=== PATIENT | male | born 1960 | race Caucasian/White ===

== ENCOUNTER 2022-11-01 20:53 | Emergency (ER) | payer OTHER, SELFPAY ==
[2022-11-01 20:55] VITALS: BP 139/87; PULSE 91; RESP 18; TEMP 36.6; O2SAT 95; BMI 30.3
--- NOTE | 2022-11-01 20:56 | ECG_ITS ---
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
--- NOTE | 2022-11-01 20:59 | ED_ITS ---
Documented by User: YOUNG Plascencia 11/01/22 21:57 HPI - Psych General Chief Complaint: Psychiatric Symptoms Stated Complaint: Suicidal Time Seen by Provider: 11/01/22 20:56 History of Present Illness HPI Narrative: patient is a 62-year-old male who presents the emergency department by ambulance for suicidal ideation. Patient states for the last several weeks he has had an increase in suicidal thoughts. He denies homicidal ideation. He called the [facility] and EMS was dispatched to bring him to the hospital. He denies any drug or alcohol ingestion. He does not have a specific suicidal plan. He denies any recent illness or focal medical complaints. He takes medication for high blood pressure as well as Related Data Home Medications Medication Instructions Recorded Confirmed hydroxyzine HCl 25 mg tablet 25 mg PO Q8H PRN itching 11/01/22 11/01/22 Allergies Allergy/AdvReac Type Severity Reaction Status Date / Time No Known Drug Allergies Allergy Verified 11/01/22 21:00 [facility] Social History Smoking status: Former smoker Exam Narrative Exam Narrative: Gen.: Awake, alert, in no distress Head: Normocephalic, atraumatic ENT: Moist mucous membranes Respiratory: No respiratory distress, lungs clear bilaterally Cardio: Regular rate and rhythm Gastrointestinal: Abdomen is soft, nondistended and nontender to palpation Extremities: Moves extremities equally, no injuries noted Psych: calm, cooperative Neuro: No focal neuro deficit Skin: Warm, dry, intact Constitutional Vital Signs, click to edit/add: Last Vital Signs Temp 97.8 F 11/01/22 20:55 Pulse 91 H 11/01/22 20:55 Resp 18 11/01/22 20:55 BP 139/87 11/01/22 20:55 Pulse Ox 95 11/01/22 20:55 O2 Del Method Room Air 11/01/22 20:55 Course Vital Signs Vital signs: Vital Signs Temperature 97.8 F 11/01/22 20:55 Pulse Rate 91 H 11/01/22 20:55 Respiratory Rate 18 11/01/22 20:55 Blood Pressure 139/87 11/01/22 20:55 Pulse Oximetry 95 11/01/22 20:55 Oxygen Delivery Method Room Air 11/01/22 20:55 Temperature 97.8 F 11/01/22 20:55 Pulse Rate 91 H 11/01/22 20:55 Respiratory Rate 18 11/01/22 20:55 Blood Pressure 139/87 11/01/22 20:55 Pulse Oximetry 95 11/01/22 20:55 Oxygen Delivery Method Room Air 11/01/22 20:55 MDM - Psych MDM Narrative Medical decision making narrative: patient is calm and cooperative in the Emergency Room, EKG, lab studies and urine specimen are obtained, patient is not intoxicated. Initiated a call to [facility], they spoke with the patient and his over the phone and we are awaiting additional evaluation by counseling services. Patient is stable at this time. Case is turned over to attending physician @2200 for disposition. Medical Records Attestation: I reviewed the patient's medical records. Lab Data Attestation: I reviewed the patient's lab results. Labs: Lab Results 11/01/22 11/01/22 11/01/22 Range/Units 21:10 21:15 21:25 WBC 5.8 (4.0-11.0) 10^3/uL RBC 4.46 L (4.70-6.10) 10^6/uL Hgb 14.6 (14.0-18.0) g/dL Hct 43.0 (42.0-54.0) % MCV 96.4 H (80.0-94.0) fL MCH 32.7 (25.9-34.0) pg MCHC 34.0 (29.9-35.2) g/dL RDW 13.2 (11.0-15.0) % Plt Count 114 L (150-450) 10^3/uL MPV 10.3 (9.5-13.5) fL Neut % (Auto) 50.3 (43.0-75.0) % Lymph % (Auto) 35.5 (20.5-60.0) % Gates % (Auto) 12.6 H (1.7-12.0) % Eos % (Auto) 1.0 (0.9-7.0) % Baso % (Auto) 0.3 (0.2-2.0) % Neut # (Auto) 2.9 (1.4-6.5) 10^3/uL Lymph # (Auto) 2.1 (1.2-3.8) 10^3/uL Gates # (Auto) 0.7 (0.3-0.8) 10^3/uL Eos # (Auto) 0.1 (0.0-0.7) 10^3/uL Baso # (Auto) 0.0 (0.0-0.1) 10^3/uL Abs Immat Gran (auto) 0.02 (0.00-0.03) 10^3/uL Imm/Tot Granulo (auto) 0.3 (0.0-0.5) % Sodium 133 L (136-145) mmol/L Potassium 3.5 (3.5-5.1) mmol/L Chloride 95 L (98-107) mmol/L Carbon Dioxide 28.7 (21.0-32.0) mmol/L Anion Gap 12.8 BUN 25.0 H (7.0-18.0) mg/dL Creatinine 1.29 (0.70-1.30) mg/dL Est GFR ( Amer) >60 (>=60) Est GFR (Non-Af Amer) 56 L (>=60) BUN/Creatinine Ratio 19.4 Glucose 95 (74-106) mg/dL Calcium 8.7 (8.5-10.1) mg/dL Total Bilirubin 0.5 (0.2-1.0) mg/dL AST 13 L (15-37) U/L ALT 21 (16-63) U/L Alkaline Phosphatase 75 (46-116) U/L Total Protein 6.6 (6.4-8.2) g/dL Albumin 3.5 (3.4-5.0) g/dL Globulin 3.1 g/dL Albumin/Globulin Ratio 1.1 Urine Color Lt. yellow (YELLOW) Urine Clarity Clear (CLEAR) Urine pH 8.5 (5.0-9.0) Ur Specific [place] 1.015 (1.005-1.025) Urine Protein Negative (NEG/TRACE) mg/dL Urine Glucose (UA) Negative (NEGATIVE) mg/dL Urine Ketones Negative (NEGATIVE) mg/dL Urine Occult Blood Negative (NEGATIVE) Urine Nitrite Negative (NEGATIVE) Urine Bilirubin Negative (NEGATIVE) Urine Urobilinogen 0.2 (0.2-1.0) EU/dL Ur Leukocyte Esterase Negative (NEGATIVE) Salicylates <2.8 (<=19.9) mg/dL Urine Opiates Screen Negative (NEGATIVE) Ur Buprenorphine Scrn Negative (NEGATIVE) Ur Oxycodone Screen Negative (NEGATIVE) Urine Methadone Screen Negative (NEGATIVE) Ur Propoxyphene Screen Negative (NEGATIVE) Acetaminophen <2.0 L (10.0-30.0) ug/mL Ur Barbiturates Screen Negative (NEGATIVE) U Tricyclic Antidepress Negative (NEGATIVE) Ur Phencyclidine Scrn Negative (NEGATIVE) Ur Amphetamines Screen Negative (NEGATIVE) U Methamphetamines Scrn Negative (NEGATIVE) U Benzodiazepines Scrn Negative (NEGATIVE) Urine Cocaine Screen Negative (NEGATIVE) U Cannabinoids Screen Negative (NEGATIVE) Ethanol Quant <3 mg/dL SARS-CoV-2 (PCR) Positive A (NEGATIVE) ECG Data Attestation: I personally reviewed and interpreted this ECG as follows: (Normal sinus rhythm at a rate of 84, no acute ST elevation, no ectopy. EKG reviewed by attending physician) ECG interpretation date: 11/01/22 ECG interpretation time: 21:09 Discharge Plan Discharge Chief Complaint: Psychiatric Symptoms Clinical Impression: Depression, COVID-19 Patient Disposition: Home, Self-Care Time of Disposition Decision: 22:49 Condition: Good Mode of Transportation: Private Vehicle Prescriptions / Home Meds: No Action hydroxyzine HCl 25 mg tablet 25 mg PO Q8H PRN (Reason: itching) Instructions: Depression (ED) Stand Alone Forms: Portal Instructions Referrals: BRIANA NG [Primary Care Provider] - 1 week Discharge Date/Time: 11/01/22 23:40 Documented by User: Krystal Puri MD 11/02/22 01:13 HPI - Psych General Chief Complaint: Psychiatric Symptoms Stated Complaint: Suicidal Time Seen by Provider: 11/01/22 20:56 Related Data Home Medications Medication Instructions Recorded Confirmed hydroxyzine HCl 25 mg tablet 25 mg PO Q8H PRN itching 11/01/22 11/01/22 Allergies Allergy/AdvReac Type Severity Reaction Status Date / Time No Known Drug Allergies Allergy Verified 11/01/22 21:00 PFSH PFSH Social History Smoking status: Former smoker Exam Constitutional Vital Signs, click to edit/add: Last Vital Signs Temp 97.8 F 11/01/22 20:55 Pulse 91 H 11/01/22 20:55 Resp 18 11/01/22 20:55 BP 139/87 11/01/22 20:55 Pulse Ox 95 11/01/22 20:55 O2 Del Method Room Air 11/01/22 20:55 Course Vital Signs Vital signs: Vital Signs Temperature 97.8 F 11/01/22 20:55 Pulse Rate 91 H 11/01/22 20:55 Respiratory Rate 18 11/01/22 20:55 Blood Pressure 139/87 11/01/22 20:55 Pulse Oximetry 95 11/01/22 20:55 Oxygen Delivery Method Room Air 11/01/22 20:55 Temperature 97.8 F 11/01/22 20:55 Pulse Rate 91 H 11/01/22 20:55 Respiratory Rate 18 11/01/22 20:55 Blood Pressure 139/87 11/01/22 20:55 Pulse Oximetry 95 11/01/22 20:55 Oxygen Delivery Method Room Air 11/01/22 20:55 MDM - Psych MDM Narrative Medical decision making narrative: patient is calm and cooperative in the Emergency Room, EKG, lab studies and urine specimen are obtained, patient is not intoxicated. Initiated a call to [facility] counseling, they spoke with the patient and his over the phone and we are awaiting additional evaluation by counseling services. Patient is stable at this time. Case is turned over to attending physician @2200 for disposition. Attending physician attestation I have seen and evaluated this patient. I have reviewed the mid-level provider?s documentation medical decision making and treatment plan. I agree with the mid- level provider?s assessment, and plan. Patient was evaluated by [facility] mental health. At this time her last mental health has discussed the case with the patient and spouse. They have opted for a safety plan. Patient is not actively suicidal. He will have police remove all of the firearms from the house. The= of the items that he has to can consult our locked up. has done this last year when the patient was suicidal. Patient feels safe going home with a safety plan. States more swollen. It is when he is alone and they have arranged to have someone with him [id number]. I answered all questions. Discussed discharge instructions including standard anticipatory guidance and what should prompt a return to the emergency department, including if they get worse are not getting better or develops any new or concerning symptoms. I've given them specific time frame in which to follow-up, and who to follow-up with. The patient demonstrates understanding. Patient is nontoxic and stable for discharge with outpatient follow-up. This note was created with the assistance of a speech recognition program. Although the intention is to generate documents that actually reflects the content of the visit, no guarantees can be provided that every mistake has been identified and corrected by editing. Differential Diagnosis Differential diagnosis: Likely suicidal ideation, bipolar disorder, depression and acute anxiety Lab Data Labs: Lab Results 11/01/22 11/01/22 11/01/22 Range/Units 21:10 21:15 21:25 WBC 5.8 (4.0-11.0) 10^3/uL RBC 4.46 L (4.70-6.10) 10^6/uL Hgb 14.6 (14.0-18.0) g/dL Hct 43.0 (42.0-54.0) % MCV 96.4 H (80.0-94.0) fL MCH 32.7 (25.9-34.0) pg MCHC 34.0 (29.9-35.2) g/dL RDW 13.2 (11.0-15.0) % Plt Count 114 L (150-450) 10^3/uL MPV 10.3 (9.5-13.5) fL Neut % (Auto) 50.3 (43.0-75.0) % Lymph % (Auto) 35.5 (20.5-60.0) % Gates % (Auto) 12.6 H (1.7-12.0) % Eos % (Auto) 1.0 (0.9-7.0) % Baso % (Auto) 0.3 (0.2-2.0) % Neut # (Auto) 2.9 (1.4-6.5) 10^3/uL Lymph # (Auto) 2.1 (1.2-3.8) 10^3/uL Gates # (Auto) 0.7 (0.3-0.8) 10^3/uL Eos # (Auto) 0.1 (0.0-0.7) 10^3/uL Baso # (Auto) 0.0 (0.0-0.1) 10^3/uL Abs Immat Gran (auto) 0.02 (0.00-0.03) 10^3/uL Imm/Tot Granulo (auto) 0.3 (0.0-0.5) % Sodium 133 L (136-145) mmol/L Potassium 3.5 (3.5-5.1) mmol/L Chloride 95 L (98-107) mmol/L Carbon Dioxide 28.7 (21.0-32.0) mmol/L Anion Gap 12.8 BUN 25.0 H (7.0-18.0) mg/dL Creatinine 1.29 (0.70-1.30) mg/dL Est GFR ( Amer) >60 (>=60) Est GFR (Non-Af Amer) 56 L (>=60) BUN/Creatinine Ratio 19.4 Glucose 95 (74-106) mg/dL Calcium 8.7 (8.5-10.1) mg/dL Total Bilirubin 0.5 (0.2-1.0) mg/dL AST 13 L (15-37) U/L ALT 21 (16-63) U/L Alkaline Phosphatase 75 (46-116) U/L Total Protein 6.6 (6.4-8.2) g/dL Albumin 3.5 (3.4-5.0) g/dL Globulin 3.1 g/dL Albumin/Globulin Ratio 1.1 Urine Color Lt. yellow (YELLOW) Urine Clarity Clear (CLEAR) Urine pH 8.5 (5.0-9.0) Ur Specific [place] 1.015 (1.005-1.025) Urine Protein Negative (NEG/TRACE) mg/dL Urine Glucose (UA) Negative (NEGATIVE) mg/dL Urine Ketones Negative (NEGATIVE) mg/dL Urine Occult Blood Negative (NEGATIVE) Urine Nitrite Negative (NEGATIVE) Urine Bilirubin Negative (NEGATIVE) Urine Urobilinogen 0.2 (0.2-1.0) EU/dL Ur Leukocyte Esterase Negative (NEGATIVE) Salicylates <2.8 (<=19.9) mg/dL Urine Opiates Screen Negative (NEGATIVE) Ur Buprenorphine Scrn Negative (NEGATIVE) Ur Oxycodone Screen Negative (NEGATIVE) Urine Methadone Screen Negative (NEGATIVE) Ur Propoxyphene Screen Negative (NEGATIVE) Acetaminophen <2.0 L (10.0-30.0) ug/mL Ur Barbiturates Screen Negative (NEGATIVE) U Tricyclic Antidepress Negative (NEGATIVE) Ur Phencyclidine Scrn Negative (NEGATIVE) Ur Amphetamines Screen Negative (NEGATIVE) U Methamphetamines Scrn Negative (NEGATIVE) U Benzodiazepines Scrn Negative (NEGATIVE) Urine Cocaine Screen Negative (NEGATIVE) U Cannabinoids Screen Negative (NEGATIVE) Ethanol Quant <3 mg/dL SARS-CoV-2 (PCR) Positive A (NEGATIVE) Discharge Plan Discharge Chief Complaint: Psychiatric Symptoms Clinical Impression: Depression, COVID-19 Patient Disposition: Home, Self-Care Time of Disposition Decision: 22:49 Condition: Good Mode of Transportation: Private Vehicle Prescriptions / Home Meds: No Action hydroxyzine HCl 25 mg tablet 25 mg PO Q8H PRN (Reason: itching) Instructions: Depression (ED) Stand Alone Forms: Portal Instructions Referrals: BRIANA NG [Primary Care Provider] - 1 week Discharge Date/Time: 11/01/22 23:40
[2022-11-01 21:18] LABS: Bilirubin Urine NEGATIVE (NEGATIVE); Blood Urine NEGATIVE (NEGATIVE); Clarity Urine CLEAR (CLEAR); Color Urine LT. YELLOW (YELLOW); Glucose Urine UA NEGATIVE (NEGATIVE); Ketones Urine NEGATIVE (NEGATIVE); Leukocyte Esterase Urine NEGATIVE (NEGATIVE); Nitrite Urine NEGATIVE (NEGATIVE); Protein Urine NEGATIVE (NEG/TRACE); Specific Gravity Urine 1.015 (1.005-1.025); Urobilinogen Urine 0.2 EU/dL (0.2-1.0); pH Urine 8.5 (5.0-9.0)
[2022-11-01 21:20] LABS: Urine Microscopic Indicated NO
[2022-11-01 21:21] LABS: Basophils Percent Auto 0.3 % (0.2-2.0); Eosinophils Absolute Auto 0.1 10^3/uL (0.0-0.7); Hemoglobin 14.6 g/dL (14.0-18.0); Immature Granulocytes Abs Auto 0.02 10^3/uL (0.00-0.03); Immature Granulocytes Pct Auto 0.3 % (0.0-0.5); Lymphocytes Absolute Auto 2.1 10^3/uL (1.2-3.8); Lymphocytes Percent Auto 35.5 % (20.5-60.0); Mean Corpuscular Hemoglobin 32.7 pg (25.9-34.0); Mean Corpuscular Volume 96.4 fL (80.0-94.0); Mean Platelet Volume 10.3 fL (9.5-13.5); Monocytes Absolute Auto 0.7 10^3/uL (0.3-0.8); Monocytes Percent Auto 12.6 % (1.7-12.0); Neutrophils Absolute Auto 2.9 10^3/uL (1.4-6.5); Neutrophils Percent Auto 50.3 % (43.0-75.0); Platelet Count 114 10^3/uL (150-450); Red Blood Count 4.46 10^6/uL (4.70-6.10); Red Cell Distribution Width 13.2 % (11.0-15.0); White Blood Count 5.8 10^3/uL (4.0-11.0)
[2022-11-01 21:28] LABS: Amphetamine Screen Urine NEGATIVE (NEGATIVE); Barbiturates Screen Urine NEGATIVE (NEGATIVE); Benzodiazepines Screen Urine NEGATIVE (NEGATIVE); Cannabinoid Screen Urine NEGATIVE (NEGATIVE); Cocaine Screen Urine NEGATIVE (NEGATIVE); Methadone Screen Urine NEGATIVE (NEGATIVE); Methamphetamines Screen Urine NEGATIVE (NEGATIVE); Opiate Screen Urine NEGATIVE (NEGATIVE); Oxycodone Screen Urine NEGATIVE (NEGATIVE); Phencyclidine Screen Urine NEGATIVE (NEGATIVE); Tricyclic Antidepressant Urine NEGATIVE (NEGATIVE)
[2022-11-01 21:29] LABS: Buprenorphine Screen Urine NEGATIVE (NEGATIVE)
[2022-11-01 21:33] LABS: Salicylate <2.8 mg/dL (<=19.9)
[2022-11-01 21:34] LABS: Acetaminophen <2.0 ug/mL (10.0-30.0)
[2022-11-01 21:36] LABS: Alanine Aminotransferase 21 U/L (16-63); Albumin Globulin Ratio 1.1; Albumin Level 3.5 g/dL (3.4-5.0); Alkaline Phosphatase 75 U/L (46-116); Anion Gap 12.8; Aspartate Amino Transferase 13 U/L (15-37); BUN Creatinine Ratio 19.4; Bilirubin Total 0.5 mg/dL (0.2-1.0); Calcium 8.7 mg/dL (8.5-10.1); Carbon Dioxide 28.7 mmol/L (21.0-32.0); Chloride 95 mmol/L (98-107); Estimated GFR (African America >60 (>=60); Estimated GFR (Non-African Ame 56 (>=60); Globulin 3.1 g/dL; Glucose 95 mg/dL (74-106); Potassium 3.5 mmol/L (3.5-5.1); Sodium 133 mmol/L (136-145); Total Protein 6.6 g/dL (6.4-8.2)
[2022-11-01 21:37] LABS: Ethanol <3 mg/dL
[2022-11-01 22:02] LABS: SARS-CoV-2 Ag POSITIVE (NEGATIVE)
== END 2022-11-01 23:40 | disposition home or self-care (01) ==
PROVIDERS: Physician Assistant; Emergency Provider Emergency Medicine; PCP Internal Medicine
DX: F32.A Depression, unspecified (principal); U07.1 COVID-19; I10 Essential (primary) hypertension; Z79.899 Other long term (current) drug therapy; Z87.891 Personal history of nicotine dependence
CPT/HCPCS: 36415; 80053; 80179; 80307; 80320; 80329; 81003; 85025; 87811; 93005; 99284

== ENCOUNTER 2024-06-07 15:03 | Emergency (ER) | payer MEDICARE, SELFPAY ==
[2024-06-07 15:06] VITALS: BP 136/83; PULSE 100; TEMP 36.8; O2SAT 97; BMI 29.9
--- NOTE | 2024-06-07 15:19 | ED.UPPEXIN1 ---
HPI HPI - Extremity Injury (Upper) General Chief Complaint: Extremity Injury, Upper Stated Complaint: Fall Extremity Injury, Upper Time Seen by Provider: 06/07/24 15:04 Source: patient Mode of arrival: walk-in Limitations: no limitations History of Present Illness HPI narrative: Patient is a 64-year-old male who presents to the emergency department for an injury to his left fifth finger that occurred just prior to arrival at home. He was carrying a garbage can in his garage when he tripped and fell. He had an isolated injury to the left fifth finger, he denies head injury and has no pain to the head, neck and is ambulatory. He does not take any blood thinning medications. Related Data Home Medications ?Medication ?Instructions ?Recorded ?Confirmed hydroxyzine HCl 25 mg tablet 25 mg PO Q8H PRN itching 11/01/22 11/01/22 Previous Rx's ?Medication ?Instructions ?Recorded hydrocodone 5 mg-acetaminophen 325 1 tab PO Q6H PRN pain 2 days #8 06/07/24 mg tablet tabs Allergies Allergy/AdvReac Type Severity Reaction Status Date / Time No Known Drug Allergies Allergy Verified 11/01/22 21:00 Opioid HPI Opioid Management Most Recent Pain and Opioid Data: Ur Phencyclidine Scrn Negative (NEGATIVE) 11/01/22 21:10 11/01/22 Review of Systems ROS Constitutional Denies: fever or chills Ears, nose, mouth, and throat Denies: throat pain or nasal congestion Respiratory Denies: shortness of breath Gastrointestinal Denies: nausea or vomiting Musculoskeletal Reports: extremity pain; Denies: back pain or neck pain Integumentary/Breast Denies: rash Neurological Denies: numbness in extremities Hematologic/Lymphatic Denies: easy bruising or easy bleeding PFSH PFSH Social History Smoking status: Former smoker Little interest or pleasure in doing things: not at all Feeling down, depressed, or hopeless: not at all Exam Narrative Exam Narrative: Gen.: Awake, alert, in no distress Head: Normocephalic, atraumatic ENT: Moist mucous membranes Respiratory: No respiratory distress Extremities: Moves extremities equally, left fifth finger with obvious deformity at the PIP joint. Palpable dislocation noted of the joint, limited range of motion of flexion and extension Psych: Normal mood and affect Neuro: No focal neuro deficit Skin: Warm, dry, intact Constitutional Vital Signs, click to edit/add: Last Vital Signs Temp 98.3 F 06/07/24 15:06 Pulse 100 H 06/07/24 15:06 Resp 16 06/07/24 15:06 BP 136/83 06/07/24 15:06 Pulse Ox 97 06/07/24 15:06 O2 Del Method Room Air 06/07/24 15:06 Course Vital Signs Vital signs: Vital Signs Temperature 98.3 F 06/07/24 15:06 Pulse Rate 100 H 06/07/24 15:06 Respiratory Rate 16 06/07/24 15:06 Blood Pressure 136/83 06/07/24 15:06 Pulse Oximetry 97 06/07/24 15:06 Oxygen Delivery Method Room Air 06/07/24 15:06 Temperature 98.3 F 06/07/24 15:06 Pulse Rate 100 H 06/07/24 15:06 Respiratory Rate 16 06/07/24 15:06 Blood Pressure 136/83 06/07/24 15:06 Pulse Oximetry 97 06/07/24 15:06 Oxygen Delivery Method Room Air 06/07/24 15:06 MDM - Extremity Injury (Upper) MDM Narrative Medical decision making narrative: Initial x-rays show dislocation of the PIP joint, possible avulsion fracture noted at the joint as well. Discussed reduction with the patient, I gave him the option of a digital block with lidocaine and he declined this and requested just to do the reduction. The reduction was performed easily and the joint was reduced on the first attempt with no difficulty. Patient tolerated this extremely well. Reduction x-rays obtained. Patient was given an appointment for Dr. Aguirre for orthopedics next week. Short course of analgesics given for home. He is neurovascularly intact at discharge. Return to the emergency department if symptoms change or worsen SUPERVISED APC VISIT, PHYSICIAN ATTESTATION: Based on the medical record the care appears appropriate. ? Medical Records Attestation: I reviewed the patient's medical records. Imaging Data xr finger: Attestation: I have reviewed the pertinent imaging results. Discharge Plan Discharge Chief Complaint: Extremity Injury, Upper Clinical Impression: Dislocation of finger, Fall Patient Disposition: Home, Self-Care Time of Disposition Decision: 15:33 Condition: Good Prescriptions / Home Meds: New hydrocodone-acetaminophen 5-325 mg tablet 1 tab PO Q6H PRN (Reason: pain) 2 Days Qty: 8 0RF Rx Instructions: DX: S63.2 No Action hydroxyzine HCl 25 mg tablet 25 mg PO Q8H PRN (Reason: itching) Print Language: American Instructions: Finger Dislocation (ED) Additional Instructions: Please keep the splint on your finger until you follow up with Dr. Aguirre. You can remove the splint to shower and wash your hands as needed. Referrals: BRIANA NG [Primary Care Provider] - 1 week Gilbert Aguirre MD [Physician] - 06/12/24 11:45 am
== END 2024-06-07 15:52 | disposition home or self-care (01) ==
PROVIDERS: Emergency Provider Emergency Medicine; PCP Internal Medicine
DX: S63.277A Dislocation of unspecified interphalangeal joint of left little finger, initial encounter (principal); W01.0XXA Fall on same level from slipping, tripping and stumbling without subsequent striking against object, initial encounter; Z87.891 Personal history of nicotine dependence
CPT/HCPCS: 26770; 73140; 99284

== ENCOUNTER 2024-11-13 11:42 | Emergency (ER) | payer MEDICARE, SELFPAY ==
[2024-11-13 11:52] VITALS: BP 121/77; PULSE 71; TEMP 36.7; O2SAT 98; BMI 27.7
--- NOTE | 2024-11-13 12:11 | ED_ITS ---
HPI - URI/Sore Throat General Chief Complaint: Upper Respiratory Infection Stated Complaint: BLOOD AFTER BLOWING NOSE Time Seen by Provider: 11/13/24 11:45 Source: patient and family Limitations: no limitations History of Present Illness HPI Narrative: 64-year-old male presents to the ED with blood-tinged nasal discharge for the past 2 weeks. He reports the blood is mostly on the right side and occurs when he blows his nose. He denies active nosebleeds or dripping blood. He has not been using nasal sprays and is not on anticoagulation therapy. He also reports nasal congestion and a right-sided frontal headache. No vision changes or blurry vision. No pain in the protestant. No fever, cough, ear pain, chest pain, shortness of breath, lightheadedness, or dizziness. He has been taking ibuprofen for headache with partial relief. No other associated symptoms. Related Data Home Medications ?Medication ?Instructions ?Recorded ?Confirmed hydroxyzine HCl 25 mg tablet 25 mg PO Q8H PRN itching 11/01/22 11/01/22 Previous Rx's ?Medication ?Instructions ?Recorded hydrocodone 5 mg-acetaminophen 325 1 tab PO Q6H PRN pa in 2 days #8 06/07/24 mg tablet tabs amoxicillin 875 mg-potassium 1 tab PO Q12H 10 days #20 tabs 11/13/24 clavulanate 125 mg tablet mupirocin 2 % topical ointment 1 applic topical TID 7 days #22 11/13/24 grams sodium chloride 0.65 % nasal spray 2 spray intranasal Q4H PRN dry 11/13/24 aerosol (Saline Mist) nasal passages #45 mL Allergies Allergy/AdvReac Type Severity Reaction Status Date / Time No Known Drug Allergies Allergy Verified 11/13/24 11:52 [facility] Social History Smoking status: Former smoker Little interest or pleasure in doing things: not at all Feeling down, depressed, or hopeless: not at all Exam Narrative Exam Narrative: * General: Alert, oriented, accompanied by family member, in no acute distress. * Vitals: Afebrile, hemodynamically stable. * HEENT: * Nose: Right nasal passage with crusted lesions and erythematous mucosa. Lesions removed with saline without bleeding. No active bleeding noted. * Sinuses: Tenderness over right frontal and maxillary sinuses on percussion. * TMs: Normal bilaterally. * Pharynx: Clear, no erythema or exudate. * Neck: No lymphadenopathy, no nuchal rigidity. * Heart: Regular rate and rhythm, no murmurs. * Lungs: Clear to auscultation bilaterally. * Neuro: Mentation at baseline, no focal deficits. Constitutional Vital Signs, click to edit/add: Last Vital Signs Temp 98.1 F 11/13/24 11:52 Pulse 71 11/13/24 11:52 Resp 16 11/13/24 11:52 BP 121/77 11/13/24 11:52 Pulse Ox 98 11/13/24 11:52 O2 Del Method Room Air 11/13/24 11:52 Course Vital Signs Vital signs: Vital Signs Temperature 98.1 F 11/13/24 11:52 Pulse Rate 71 11/13/24 11:52 Respiratory Rate 16 11/13/24 11:52 Blood Pressure 121/77 11/13/24 11:52 Pulse Oximetry 98 11/13/24 11:52 Oxygen Delivery Method Room Air 11/13/24 11:52 Temperature 98.1 F 11/13/24 11:52 Pulse Rate 71 11/13/24 11:52 Respiratory Rate 16 11/13/24 11:52 Blood Pressure 121/77 11/13/24 11:52 Pulse Oximetry 98 11/13/24 11:52 Oxygen Delivery Method Room Air 11/13/24 11:52 MDM - URI/Sore Throat MDM Narrative Medical decision making narrative: 64-year-old male presenting with 2 weeks of right-sided nasal congestion, frontal headache, and blood-tinged mucus when blowing his nose. Exam shows crusted lesions in the right nasal passage with erythematous mucosa, no active bleeding, and right frontal/maxillary sinus tenderness. TMs normal, no pharyngeal erythema or lymphadenopathy. Findings most consistent with localized nasal mucosal irritation and acute bacterial sinusitis. No septal hematoma, uncontrolled epistaxis, or systemic infection noted. Presentation is most consistent with: * Localized nasal irritation/crusting with mild mucosal breakdown (no active bleeding or septal hematoma). * Acute bacterial sinusitis, given >10 days of congestion, right fro ntal/maxillary tenderness, and persistent headache. Given symptom duration and sinus tenderness, will treat with Augmentin 875 mg PO BID x10 days. Will also treat nasal lesions with mupirocin ointment to nares TID x7 days and encourage nasal saline use. Patient counseled on supportive care, return precautions, and need for PCP follow-up. Discharged in stable condition, agreeable to plan. Differential Diagnosis Differential diagnosis: Likely upper respiratory infection, croup, otitis media, sinusitis, viral infection, bronchitis, influenza and pharyngitis Medical Records Attestation: I reviewed the patient's medical records. Discharge Plan Discharge Chief Complaint: Upper Respiratory Infection Clinical Impression: Sinusitis, Lesion of nasal mucosa Patient Disposition: Home, Self-Care Condition: Good Mode of Transportation: Private Vehicle Prescriptions / Home Meds: New amoxicillin-pot clavulanate 875-125 mg tablet 1 tab PO Q12H 10 Days Qty: 20 0RF mupirocin 2 % ointment 1 applic topical TID 7 Days Qty: 22 0RF Rx Instructions: in the entrance of the nares with q-tip as discussed. Saline Mist 0.65 % aerosol,spray 2 spray intranasal Q4H PRN (Reason: dry nasal passages) Qty: 45 0RF No Action hydroxyzine HCl 25 mg tablet 25 mg PO Q8H PRN (Reason: itching) hydrocodone-acetaminophen 5-325 mg tablet 1 tab PO Q6H PRN (Reason: pain) 2 Days Qty: 8 0RF Rx Instructions: DX: S63.2 Print Language: Bengali Instructions: Sinusitis (ED) Additional Instructions: After Visit Summary Reason for Visit: * Blood-tinged mucus from nose (mostly right side) * Sinus congestion and headache for 2 weeks What We Found: * You have some small sores in your right nostril that are likely causing the blood when you blow your nose. * You likely have a sinus infection causing your congestion and headache. * No active nosebleed or other serious issues were found today. Treatment Plan: * Mupirocin Ointment: Apply with a Q-tip just inside the right nostril 3 times a day for 7 days. * Antibiotic: Augmentin 875 mg ? take one pill twice a day for 10 days (finish all doses, even if you feel better). * Saline Nasal [place]: Use several times a day to keep the nose moist and help clear crusting. * Comfort Measures: * Use a cool mist humidifier in your room * Drink plenty of fluids * Take acetaminophen or ibuprofen as needed for headache or sinus pain What to Watch For: Come back to the ED or call your doctor if you develop: * Heavy or uncontrolled nosebleeds * Fever or chills * Severe or worsening headache * Swelling around the eyes or face * Vision changes * Dizziness, weakness, or any new symptoms that worry you Follow-Up: See your primary care doctor in about 1 week or sooner if symptoms do not improve. Referrals: OMI REBOLLEDO [Primary Care Provider, Internal Medicine] - 1 week
--- OUTSIDE RECORDS SUMMARY | 2024-11-13 12:30 | XMS_ITS | CCD ---
Author Organization [facility] Care Team Providers Care Platform Power Technician Name Role Phone Jurgen Beaver Attending Physician UnavailMarisela Braxton Unavailable DR FARRUKH NG Primary Care Unavailable NICOLE LANE Admitting Unavailable NICOLE LANE Attending Unavailable NICOLE LANE Consulting Unavailable JENI RENO Consulting Unavailable DO Farrukh Ng Primary Care Provider [phone] DO Easton Knowles Emergency Provider [phone] MD Jose Ramos Admit Provider [phone] MD Jose Ramos Attending Provider DO Zelalem Schmid Emergency Provider Farrukh Ng DO Primary Care Provider DO Farrukh Ng Primary Care Provider MD Sekou Dai Attending Provider [phone] Sekou Dai MD Unavailable [phone] Óscar Jeffers MD Unavailable [phone] Farrukh Ng DO Unavailable Farrukh Ng DO Primary Care Provider [phone] Tristan Luciano MD Attending Provider Phoenix Rivera MD Attending Provider [phone] Phoenix Rivera Attending Unavailable Phoenix Rivera Admitting Unavailable Farrukh Ng Primary Care Unavailable Farrukh Ng Primary Care Unavailable Tristan Luciano Attending Unavailab Tristan Bee Admitting Unavailab MOHSEN Bernardo Attending Unavailable OJ MCGRATH Attending Unavailable WILLISNAKWAKU PATTERSON Attending Unavailable KWAKU GLOVER C Referring Unavailable OJ MCGRATH Attending Unavailable FARRUKH NG Attending Unavailable DAI, SEKOU W Attending Unavailable ROSIBEL ARELLANO Attending Unavailable DAI, SEKOU W Referring Unavailable ÓSCAR SHUKLA Attending Unavailable DAI, SEKOU W Referring Unavailable ARELLANOROSIBEL Attending Unavailable DAI, SEKOU W Referring Unavailable BROWNOJ Attending Unavailable BRINK, MARQUEZ Attending Unavailable DAI, SEKOU W Referring Unavailable GAYLAÓSCAR Attending Unavailable DAI, SEKOU W Referring Unavailable GAYLA, ÓSCAR Attending Unavailable DAI, SEKOU W Referring Unavailable FARRUKH NG Attending Unavailable FARRUKH NG Referring Unavailable OJ MCGRATH Attending Unavailable DAI, SEKOU W Attending Unavailable OJ MCGRATH Attending Unavailable LEOPOLDO BLUM Attending Unavailable BRINK, MARQUEZ Attending Unavailable DAI, SEKOU W Referring Unavailable GAYLAÓSCAR Attending Unavailable DAI, SEKOU W Referring Unavailable BRINK, MARQUEZ Attending Unavailable DAI, SEKOU W Referring Unavailable BRINK, MARQUEZ Attending Unavailable DAI, SEKOU W Referring Unavailable BRINK, MARQUEZ Attending Unavailable DAI, SEKOU W Referring Unavailable BRINK, MARQUEZ Attending Unavailable DAI, SEKOU W Referring Unavailable BRINK, MARQUEZ Attending Unavailable DAI, SEKOU W Referring Unavailable BRINK, MARQUEZ Attending Unavailable DAI, SEKOU W Referring Unavailable BRINK, MARQUEZ Attending Unavailable DAI, SEKOU W Referring Unavailable BRINK, MARQUEZ Attending Unavailable DAI, SEKOU W Referring Unavailable Allergies Allergy Classification Reported Allergen(s) Allergy Type Date of Onset Reaction(s) Facility (4 sources) Acetaminophen; Translations: [acetaminophen] Drug Allergy 9 [facility] (6 sources) oxyCODONE; Translations: [oxycodone] Drug Allergy 9 [facility] (1 source) Acetaminophen / oxyCODONE Drug Allergy Unknown [facility] Other (1 source) Codeine Drug Allergy 2 [facility] (20 sources) Acetaminophen / oxyCODONE Drug Allergy 7 [facility] (20 sources) Amantadine Drug Allergy 3 [facility] (20 sources) Benztropine Drug Allergy 3 [facility] (20 sources) Codeine Drug Allergy 1 Nausea Only [facility] Medications Current Medications Medication Drug Class(es) Dates Sig (Normalized) Sig (Original) atorvastatin 40 mg oral tablet (20 sources) HMG-CoA Reductase Inhibitor Start: 08-14-2024 take 1 tablet by mouth once daily in the evening atorvastatin (Lipitor) 40 MG tablet Indications: Mixed hyperlipidemia TAKE 1 TABLET BY MOUTH ONCE DAILY IN THE EVENING 90 tablet 2 08/14/2024 Active Start: 08-09-2023 take 1 tablet by ebony th at bedtime atorvastatin (Lipitor) 40 MG tablet Indications: Mixed hyperlipidemia (CMS/HCC) Take 1 tablet (40 mg) by mouth at bedtime 30 tablet 11 08/09/2023 Active Start: 07-31-2022 take 1 tablet by ebony th at bedtime atorvastatin (Lipitor) 40 MG tablet Take 40 mg by mouth at bedtime. 0 07/31/2022 Active Start: 04-18-2018 take 20 mg by mouth once daily Atorvastatin 20 MG Oral Daily April 18, 2018 Active Start: 04-18-2018 take 2 tablets by mo [facility] once daily at bedtime Atorvastatin 20 mg Tablet Active 40 MG PO Daily April 18, 2018 1:00am take at bedtime Start: 04-18-2018 take 40 mg by mouth once daily at bedtime Atorvastatin Active 40 MG PO Daily April 18, 2018 1:00am take at bedtime Lipitor Active biotin 10 mg oral capsule (20 sources) Start: 07-12-2023 take 1 capsule by mouth once daily at bedtime biotin 10 MG capsule take 1 capsule by mouth every morning and at bedtime 07/12/2023 Active Start: 02-25-2023 End: 05-01-2023 take 1 capsule by mouth in the morning biotin 10 MG capsule Indications: Parkinsonism, unspecified Parkinsonism type Take 1 capsule (10 mg) by mouth in the morning and 1 capsule (10 mg) before bedtime. 60 capsule 11 04/01/2023 05/01/2023 Active Start: 04-08-2022 take 1 capsule by mo uth twice daily Biotin 10,000 mcg capsule Active 76037 MCG PO Twice daily April 08, 2022 1:00am take 1 tablet by ebony th in the morning biotin 79501 MCG tablet Take 1 tablet by mouth in the morning and 1 tablet before bedtime. Active 24 hr buPROPion hydrochloride 300 mg extended release oral tablet (20 sources) Aminoketone Start: 08-24-2022 take 1 tablet by mouth every twenty-four hours in the morning buPROPion XL (Wellbutrin XL) 300 MG 24 hr tablet Take 300 mg by mouth in the morning. 08/24/2022 Active Start: 04-08-2022 take 1 tablet by ebony th once daily Bupropion Hcl 75 mg tablet Active 75 MG PO Daily April 08, 2022 1:00am Start: 08-13-2020 End: 08-13-2020 take 1 tablet by mouth once daily Bupropion Hcl 150 mg Tablet Sustained-Release 12 Hr Discontinued 150 MG PO Daily August 13, 2020 12:00am August 13, 2020 6:34am Start: 06-06-2020 End: 08-13-2020 take 1 tablet by mouth once daily Bupropion Hcl (Wellbutrin Xl) 300 mg tablet extended release 24 hr Active 300 MG PO Daily August 13, 2020 12:00am Start: 05-12-2020 End: 06-06-2020 take 1 tablet by mouth once daily in the morning Bupropion Hcl (Wellbutrin Xl) 150 mg tablet extended release 24 hr Discontinued 150 MG PO Every morning June 03, 2020 12:29pm June 06, 2020 10:44am BuPROPion HBr Ac tive busPIRone hydrochloride 30 mg oral tablet (20 sources) Start: 09-02-2022 take 1 tablet by mouth in the morning, then take 1 tablet by mouth in the evening, then take 1 tablet by mouth at bedtime busPIRone (Buspar) 30 MG tablet Take 30 mg by mouth in the morning and 30 mg in the evening and 30 mg before bedtime. 09/02/2022 Active Start: 04-24-2022 Buspirone 30 m g tablet Active 30 MG PO Daily at 0730, 1530, 2330 April 24, 2022 1:00am Start: 08-17-2020 End: 04-24-2022 take 2 tablets by mouth three times daily Buspirone 15 mg Tablet Discontinued 30 MG PO Three times daily 180 August 17, 2020 12:00am April 24, 2022 4:45pm Start: 08-17-2020 End: 04-24-2022 take 30 mg by mouth three times daily Buspirone Discontinued 30 MG PO Three times daily 180 August 17, 2020 12:00am April 24, 2022 4:45pm Start: 04-18-2018 take 10 mg by mouth three times daily Buspirone 10 MG Oral Three times daily April 18, 2018 Active Start: 04-18-2018 End: 08-17-2020 take 3 tablets by mouth twice daily Buspirone 10 mg Tablet Discontinued 30 MG PO Twice daily April 18, 2018 1:00am August 17, 2020 11:01am Start: 04-18-2018 End: 08-17-2020 take 30 mg by mouth twice daily Buspirone Discontinued 30 MG PO Twice daily April 18, 2018 1:00am August 17, 2020 11:01am calcium carbonate 1500 mg / cholecalciferol 0.01 mg oral tablet (10 sources) Vitamin D Start: 05-08-2020 take 1 tablet by mouth twice daily Calcium Carbonate-Vitamin D3 600 mg(1,500mg) -400 unit Tablet Active 1 TAB PO Twice daily May 08, 2020 1:00am Start: 04-18-2018 End: 05-08-2020 take 1 tablet by mouth twice daily Calcium Carbonate-Vitamin D3 (Calcium 600 With Vitamin D3) 600 mg(1,500mg) -400 unit Capsule Discontinued 1 TAB PO Twice daily April 18, 2018 1:00am May 08, 2020 12:40pm Calcium Carbonate-Vit D-Min (Calcium 600+D3 Plus Minerals) 600-800 MG-UNIT tablet (20 sources) take 1 tablet by mouth once in the morning Calcium Carbonate-Vit D-Min (Calcium 600+D3 Plus Minerals) 600-800 MG-UNIT tablet Take 1 tablet by mouth in the morning and 1 tablet before bedtime. Active cholecalciferol 0.025 mg oral capsule (4 sources) Vitamin D Start: 04-08-2022 take 1 capsule by mouth twice daily Cholecalciferol (Vitamin D3) (Vitamin D3) 25 mcg (1,000 unit) Capsule Active 25 MCG PO Twice daily April 08, 2022 1:00am Start: 04-08-2022 take 1 capsule by mo uth once daily Cholecalciferol (Vitamin D3) (Vitamin D3) 25 mcg (1,000 unit) Capsule Active 25 MCG PO Daily April 08, 2022 1:00am furosemide 20 mg oral tablet (20 sources) Loop Diuretic Start: 10-18-2023 End: 10-16-2025 take 1 tablet by mouth once daily furosemide (Lasix) 20 MG tablet Indications: Edema, unspecified type Take 1 tablet (20 mg) by mouth Daily 90 tablet 3 10/16/2024 10/16/2025 Active Start: 08-05-2022 End: 08-05-2023 take 1 tablet by mouth in the morning furosemide (Lasix) 20 MG tablet Indications: Edema, unspecified type Take 1 tablet (20 mg) by mouth in the morning. 90 tablet 3 08/05/2022 08/05/2023 Active Start: 04-24-2022 End: 04-24-2022 Furosemide 20 mg Tablet Disc ontinued 20 MG PO As Directed as needed for Edema April 24, 2022 1:00am April 24, 2022 4:51pm Start: 10-14-2020 End: 04-08-2022 take 1 tablet by mouth once daily Furosemide 20 mg tablet Discontinued 20 MG PO Daily October 14, 2020 12:00am April 08, 2022 3:02pm ginkgo biloba extract 60 mg oral tablet (20 sources) take 2 tablets by mo [facility] in the morning Ginkgo 60 MG tablet Take 120 mg by mouth in the morning and 120 mg before bedtime. Active take 1 tablet by mouth once zoila y Ginkgo 60 MG tablet Take by mouth Daily. Active hydrOXYzine hydrochloride 25 mg oral tablet (20 sources) Antihistamine Start: 03-03-2023 take 1 tablet by mouth three times daily as needed for anxiety hydrOXYzine HCl (Atarax) 25 MG tablet Take 25 mg by mouth 3 (three) times a day as needed for anxiety 03/03/2023 Active Start: 04-24-2022 End: 04-24-2022 take 1 tablet by mouth three times daily Hydroxyzine Hcl 25 mg Tablet Discontinued 25 MG PO Three times daily April 24, 2022 1:00am April 24, 2022 5:01pm Start: 04-08-2022 End: 04-08-2022 take 1 tablet by mouth three times daily Hydroxyzine Hcl 25 mg Tablet Discontinued 25 MG PO Three times daily April 08, 2022 1:00am April 08, 2022 2:58pm lisinopril 5 mg oral tablet (20 sources) Angiotensin Converting Enzyme Inhibitor Start: 10-14-2020 take 1 tablet by mouth once daily lisinopril 5 MG tablet Indications: Primary hypertension Take 1 tablet (5 mg) by mouth Daily 90 tablet 3 05/03/2024 Active Lisinopril Activ e LORazepam (1 source) Benzodiazepine Ativan Active 24 hr memantine hydrochloride 28 mg extended release oral capsule (20 sources) C-yvrgvp-I-aspartate Receptor Antagonist Start: 10-25-19 take 1 capsule by mouth once daily at bedtime Memantine HCl ER 28 MG capsule sustained-release 24 hr Indications: MCI (mild cognitive impairment) TAKE 1 BY MOUTH ONCE DAILY AT BEDTIME 30 capsule 10/24/2024 Active Start: 10-19-2023 End: 03-15-2024 take 1 capsule by mouth every twenty-four hours at bedtime Memantine HCl ER 28 MG capsule sustained-release 24 hr Indications: MCI (mild cognitive impairment) Take 28 mg by mouth at bedtime 30 capsule 11 02/14/2024 Active Start: 10-15-2022 take 1 tablet by ebony th in the morning memantine (Namenda) 10 MG tablet Indications: Memory loss Take 1 tablet (10 mg) by mouth in the morning and 1 tablet (10 mg) before bedtime. 60 tablet 11 10/15/2022 Active Multiple Vitamins-Minerals ( CENTRUM SILVER PO) (20 sources) Multiple Vitamin s-Minerals (CENTRUM SILVER PO) Take by mouth Daily. Active Multiple Vitamin s-Minerals (CENTRUM SILVER PO) Take by mouth Daily. 0 Active Iwqruzvu-Vig-To-Lycopen-Lute in (Centrum Silver) 0.4-300-250 mg-mcg-mcg Tablet (4 sources) Start: 04-18-2018 take 1 tablet by mouth once daily Qcocakaa-Axp-Sh-Lycopen-Lutein (Centrum Silver) 0.4-300-250 mg-mcg-mcg Tablet Active 1 TAB PO Daily April 18, 2018 1:00am Start: 04-18-2018 take 1 tablet by ebony th once daily Zowlxvin-Dow-Ng-Lycopen-Lutein (Centrum Silver) 0.4-300-250 mg-mcg-mcg Tablet Active 1 TAB PO Daily April 18, 2018 12:00am 24 hr paliperidone 6 mg extended release oral tablet (20 sources) Atypical Antipsychotic Start: 08-17-2022 take 2 tablets by mouth every twenty-four hours in the morning paliperidone (Invega) 6 MG 24 hr tablet Take 2 tablets by mouth in the morning. 08/17/2022 Active Start: 04-30-2022 take 1 tablet by ebony th once daily Paliperidone 3 mg Tablet Extended Release 24 Hr Active 9 MG PO Daily 45 April 30, 2022 1:00am Start: 04-24-2022 End: 04-30-2022 Paliperidone 6 mg tablet ext ended release 24 hr Discontinued 6 MG PO Daily April 24, 2022 4:41pm April 30, 2022 1:28pm Take with 1.5mg to equal 7.5mg. Start: 04-24-2022 End: 04-30-2022 Paliperidone (Invega) 1.5 mg Tablet Extended Release 24 Hr Discontinued 1.5 MG PO Every morning April 24, 2022 1:00am April 30, 2022 1:28pm Take with 6mg dose to equal 7.5mg. Start: 04-15-2022 End: 04-24-2022 take 1 tablet by mouth once daily Paliperidone 6 mg Tablet Extended Release 24 Hr Discontinued 7.5 MG PO Daily 38 April 15, 2022 1:00am April 24, 2022 4:41pm Start: 04-08-2022 End: 04-15-2022 take 1 tablet by mouth once daily Paliperidone (Invega) 1.5 mg Tablet Extended Release 24 Hr Discontinued 1.5 MG PO Daily April 08, 2022 1:00am April 15, 2022 12:15pm microencapsulated potassium chloride 10 meq extended release oral tablet (20 sources) Start: 10-16-2024 take 1 tablet by mouth once daily potassium chloride CR (KLOR-CON) 10 MEQ ER tablet Indications: Edema, unspecified type Take 1 tablet (10 mEq) by mouth Daily 90 tablet 3 10/16/2024 Active Start: 10-18-2023 take 1 tablet by ebony th once daily potassium chloride CR (KLOR-CON) 10 MEQ ER tablet Indications: Edema, unspecified type Take 1 tablet (10 mEq) by mouth Daily 90 tablet 3 10/18/2023 Active Start: 08-05-2022 take 1 tablet by ebony th in the morning potassium chloride CR (KLOR-CON) 10 MEQ ER tablet Indications: Edema, unspecified type Take 1 tablet (10 mEq) by mouth in the morning. 90 tablet 3 08/05/2022 Active Start: 08-13-2020 End: 04-08-2022 take 1 tablet by mouth once daily at mealtime Potassium Chloride 10 mEq Tablet Extended Release Discontinued 10 MEQ PO Daily August 13, 2020 12:00am April 08, 2022 3:02pm take with food QUEtiapine 25 mg oral tablet (20 sources) Atypical Antipsychotic Start: 04-30-2022 take 1 tablet by mouth twice daily Quetiapine 25 mg Tablet Active 25 MG PO Twice daily April 30, 2022 1:00am rOPINIRole 1 mg oral tablet (20 sources) Nonergot Dopamine Agonist Start: 09-11-2024 End: 12-10-2024 rOPINIRole (Requip) 1 MG tablet Indications: Parkinson's Disease Take 2 tablets (2 mg) by mouth in the morning and 2 tablets (2 mg) at noon and 2 tablets (2 mg) in the evening. 540 tablet 3 09/11/2024 12/10/2024 Active Start: 07-10-2024 End: 07-10-2025 take 1 tablet by mouth in the morning, then take 1 tablet by mouth in the evening, then take 1 tablet by mouth at bedtime rOPINIRole (Requip) 1 MG tablet Indications: Parkinson's Disease Take 1 tablet (1 mg) by mouth in the morning and 1 tablet (1 mg) in the evening and 1 tablet (1 mg) before bedtime. 270 tablet 3 07/10/2024 09/11/2024 Discontinued (Reorder) Start: 07-05-2023 End: 07-04-2024 take 1 tablet by mouth three times daily Ropinirole 1 mg tablet Active 1 MG PO Three times daily June 21, 2024 12:00am Start: 06-22-2023 End: 11-08-2023 take 1 tablet by mouth in the morning, then take 1 tablet by mouth in the evening, then take 1 tablet by mouth at bedtime rOPINIRole (Requip) 0.25 MG tablet Indications: Parkinson's Disease Take 1 tablet (0.25 mg) by mouth in the morning and 1 tablet (0.25 mg) in the evening and 1 tablet (0.25 mg) before bedtime. 270 tablet 3 06/22/2023 11/08/2023 Discontinued (Therapy completed) Start: 03-17-2023 End: 06-15-2023 take 1 tablet by mouth in the morning, then take 1 tablet by mouth in the evening, then take 1 tablet by mouth at bedtime rOPINIRole (Requip) 0.25 MG tablet Indications: Parkinson's Disease Take 1 tablet (0.25 mg) by mouth in the morning and 1 tablet (0.25 mg) in the evening and 1 tablet (0.25 mg) before bedtime. 270 tablet 0 03/17/2023 06/15/2023 Active Start: 09-03-2022 take 1 tablet by ebony th in the morning, then take 1 tablet by mouth in the evening, then take 1 tablet by mouth at bedtime rOPINIRole (Requip) 1 MG tablet Take 1 mg by mouth in the morning and 1 mg in the evening and 1 mg before bedtime. 0 09/03/2022 Active Start: 04-08-2022 End: 12-08-2023 take 1 tablet by mouth in the morning, then take 1 tablet by mouth in the evening, then take 1 tablet by mouth at bedtime rOPINIRole (Requip) 0.5 MG tablet Indications: Parkinson's Disease Take 1 tablet (0.5 mg) by mouth in the morning and 1 tablet (0.5 mg) in the evening and 1 tablet (0.5 mg) before bedtime. 90 tablet 11 11/08/2023 Active Start: 04-08-2022 End: 04-08-2022 take 2 tablets by mouth three times daily Ropinirole 0.25 mg tablet Discontinued 0.5 MG PO Three times daily April 08, 2022 1:00am April 08, 2022 2:51pm Start: 04-08-2022 End: 04-08-2022 take 0.5 mg by mouth three times daily Ropinirole Discontinued 0.5 MG PO Three times daily April 08, 2022 1:00am April 08, 2022 2:51pm sertraline 100 mg oral tablet (20 sources) Serotonin Reuptake Inhibitor Start: 04-18-2018 take 2 tablets by mouth once daily Sertraline 100 mg Tablet Active 200 MG PO Daily April 18, 2018 1:00am Start: 04-18-2018 take 200 mg by mouth once zoila y Sertraline Active 200 MG PO Daily April 18, 2018 1:00am Zoloft Active thiamine 100 mg oral tablet (20 sources) Start: 02-14-2024 End: 02-13-2025 take 1 tablet by mouth once daily thiamine (Vitamin B-1) 100 MG tablet Indications: MCI (mild cognitive impairment) Take 1 tablet (100 mg) by mouth Daily 30 tablet 11 02/14/2024 02/13/2025 Active traZODone hydrochloride 100 mg oral tablet (20 sources) Serotonin Reuptake Inhibitor Start: 08-17-2022 take 2 tablets by mouth at bedtime for sleep traZODone (Desyrel) 100 MG tablet take 2 tablets by mouth at bedtime if needed for sleep 0 08/17/2022 Active Start: 10-14-2020 traZODone (Faisal yrel) 100 MG tablet Take 150 mg by mouth at bedtime 08/17/2022 Active Start: 10-14-2020 take 300 mg by mouth once daily at bedtime Trazodone Active 300 MG PO Daily at bedtime October 14, 2020 12:00am Start: 06-06-2020 End: 10-14-2020 take 1 tablet by mouth once daily at bedtime as needed Trazodone 50 mg Tablet Discontinued 50 MG PO Daily at bedtime as needed for Insomnia June 06, 2020 12:00am October 14, 2020 2:58pm traZODone HCl Ac tive divalproex sodium 500 mg delayed release oral tablet (20 sources) Mood Stabilizer, Anti-epileptic Agent Start: 04-08-2022 take 1 tablet by mouth twice daily Divalproex 500 mg tablet,delayed release (DR/EC) Active 500 MG PO Twice daily April 08, 2022 2:46pm Start: 10-18-2020 End: 04-08-2022 take 3 tablets by mouth once daily at bedtime Divalproex (Depakote) 250 mg Tablet,Delayed Release (Dr/Ec) Discontinued 750 MG PO Daily at bedtime 45 October 18, 2020 12:00am April 08, 2022 2:47pm Start: 10-18-2020 End: 04-08-2022 take 1 tablet by mouth once daily in the morning Divalproex 500 mg Tablet,Delayed Release (Dr/Ec) Discontinued 500 MG PO Every morning 15 October 18, 2020 12:00am April 08, 2022 2:46pm Start: 05-08-2020 End: 10-18-2020 take 2 tablets by mouth twice daily Divalproex (Depakote) 250 mg tablet,delayed release (DR/EC) Discontinued 500 MG PO Twice daily May 08, 2020 3:30pm October 18, 2020 9:57am Start: 04-22-2018 End: 05-08-2020 take 1 tablet by mouth twice daily Divalproex (Depakote) 250 mg Tablet,Delayed Release (Dr/Ec) Discontinued 250 MG PO Twice daily April 22, 2018 1:00am May 08, 2020 3:30pm take 2 tablets by mo [facility] at bedtime divalproex (Depakote) 500 MG EC tablet Take 1,000 mg by mouth at bedtime Active Depakote Active vitamin b12 1 mg extended release oral tablet (20 sources) Vitamin B12 Start: 04-18-2018 take 1 tablet by mouth once daily Cyanocobalamin (Vitamin B-12) (Vitamin B-12) 1,000 mcg Tablet Extended Release Active 1000 MCG PO Daily April 18, 2018 1:00am take 1 tablet by mouth in the mo [facility] cyanocobalamin (Vitamin B-12) 1000 MCG tablet Take 1,000 mcg by mouth in the morning. Active Completed/Discontinued Medications Medication Drug Class(es) Dates Sig (Normalized) Sig (Original) aspirin 81 mg delayed release oral tablet (17 sources) Platelet Aggregation Inhibitor, Nonsteroidal Anti-inflammatory Drug Start: 04-18-2018 End: 06-21-2024 take 1 tablet by mouth once daily Aspirin 81 mg Tablet,Delayed Release (Dr/Ec) Discontinued 81 MG PO Daily May 08, 2020 1:00am June 21, 2024 10:32am benztropine mesylate 0.5 mg oral tablet (20 sources) Anticholinergic, Antihistamine Start: 04-24-2022 End: 06-21-2024 take 0.25 mg by mouth twice daily Benztropine 0.5 mg Tablet Discontinued 0.25 MG PO Twice daily April 30, 2022 1:00am June 21, 2024 10:32am Start: 04-24-2022 take 0.25 mg by mout h twice daily Benztropine Active 0.25 MG PO Twice daily April 30, 2022 1:00am Start: 04-15-2022 End: 04-24-2022 take 1 tablet by mouth twice daily Benztropine 0.5 mg Tablet Discontinued 0.5 MG PO Twice daily April 15, 2022 1:00am April 24, 2022 6:08pm clonazePAM 1 mg oral tablet (6 sources) Benzodiazepine Start: 04-18-2018 End: 04-22-2018 take 1 tablet by mouth four times daily as needed for anxiety Clonazepam (Klonopin) 1 mg Tablet Discontinued 1 MG PO Four times daily as needed for Anxiety April 18, 2018 1:00am April 22, 2018 12:53pm Ohuasvay-Mxl-Kt-Ly copen-Lutein (1 source) Start: 04-18-2018 take 1 tablet by mouth once daily Ilrkgfxq-Xma-Ig-Ly copen-Lutein 1 TAB Oral Daily April 18, 2018 Active Svfetkhz-Rpa-Rt-Ly copen-Lutein [Centrum Silver] (1 source) Start: 04-18-2018 take 1 tablet by mouth once daily Ghozvjnm-Ayd-Gz-Ly copen-Lutein [Centrum Silver] 1 TAB Oral Daily April 18, 2018 Active risperiDONE 0.5 mg oral tablet (20 sources) Atypical Antipsychotic Start: 04-24-2022 End: 04-24-2022 take 1 tablet by mouth once daily Risperidone 0.5 mg tablet Discontinued 0.5 MG PO Daily April 24, 2022 1:00am April 24, 2022 5:31pm Start: 04-24-2022 End: 04-24-2022 take 4 tablets by mouth at bedtime Risperidone (Risperdal) 0.5 mg tablet Discontinued 2 MG PO Bedtime April 24, 2022 1:00am April 24, 2022 5:31pm Start: 04-08-2022 End: 04-15-2022 take 1 tablet by mouth once daily Risperidone 0.5 mg tablet Discontinued 0.5 MG PO Daily April 08, 2022 1:00am April 15, 2022 12:15pm Start: 10-14-2020 End: 04-15-2022 take 2 tablets by mouth at bedtime Risperidone 1 mg tablet Discontinued 2 MG PO Bedtime October 14, 2020 12:00am April 15, 2022 12:15pm Start: 10-14-2020 End: 04-15-2022 take 2 mg by mouth at bedtime Risperidone Discontinued 2 MG PO Bedtime October 14, 2020 12:00am April 15, 2022 12:15pm Start: 04-18-2018 End: 10-14-2020 take 1 tablet by mouth once daily Risperidone 2 mg Tablet Discontinued 2 MG PO Daily August 13, 2020 12:00am October 14, 2020 2:57pm RisperDAL Active Problems Active Problems Problem Classification Problem Date Documented Da te Episodic/Chronic Delirium, dementia, and amnestic and other cognitive disorders (2 sources) Dementia; Translations: [Unspecified dementia without behavioral disturbance] 08-09-2024 Chronic Disorders of lipid metabolism (20 sources) Dyslipidemia; Translations: [Hyperlipidemia, unspecified] Onset: 12-24-2014 Resolved: 12-01-2023 10-05-2022 Chronic E Codes: Fall (1 source) Fall (on) (from) other stairs and steps, initial encounter; Translations: [FALL ON FROM OTH STAIRS STEPS INIT] Onset: 12-22-2021 Episodic Essential hypertension (20 sources) Hypertensive disorder; Translations: [Essential (primary) hypertension] Onset: 03-08-2020 10-05-2022 Chronic Gastrointestinal hemorrhage (2 sources) Hematochezia; Translations: [Melena] 12-01-2023 Episodic Immunizations and screening for infectious disease (2 sources) Needs influenza immunization; Translations: [Encounter for immunization] 12-01-2023 Episodic Joint disorders and dislocations; trauma-related (20 sources) Dislocation of proximal interphalangeal joint of left little finger, initial encounter; Translations: [Closed dislocation of interphalangeal (joint), hand] Onset: 09-11-2024 09-11-2024 Episodic Mood disorders (20 sources) Bipolar affective disorder, currently manic, severe, with psychosis; Translations: [Major depressive disorder] Onset: 10-08-2016 Resolved: 04-11-2024 05-08-2020 Chronic Mycoses (4 sources) Pain in toe; Translations: [Tinea unguium] 12-20-2023 Episodic Osteoporosis (20 sources) Osteoporosis; Translations: [Age-related osteoporosis without current pathological fracture] Onset: 12-24-2014 10-13-2022 Chronic Other aftercare (1 source) jail (current) use of aspirin; Translations: [PRISON CURRENT USE OF ASPIRIN] Onset: 12-22-2021 Episodic Other and unspecified benign neoplasm (4 sources) History of polyp of colon; Translations: [History of colon polyps] 04-11-2024 Episodic Other ear and sense organ disorders (2 sources) Impacted cerumen in left ear; Translations: [Impacted cerumen, left ear] 03-10-2024 Episodic Other gastrointestinal disorders (2 sources) Chronic constipation; Translations: [Other constipation] 08-09-2024 Episodic Other nervous system disorders (20 sources) Parkinsonism due to drug; Translations: [Other drug induced secondary parkinsonism] Onset: 07-28-2022 07-28-2022 Chronic Other nervous system disorders (1 source) Impaired cognition 05-15-2024 Episodic Other non-traumatic joint disorders (3 sources) Pain in left wrist; Translations: [PAIN IN LEFT WRIST] Onset: 12-20-2021 Episodic Screening and history of mental health and substance abuse codes (1 source) Personal history of nicotine dependence; Translations: [PERSONAL HISTORY OF NICOTINE DEPEND] Onset: 12-22-2021 Episodic Spondylosis; intervertebral disc disorders; other back problems (20 sources) Intervertebral disc disorder of cervical region with myelopathy; Translations: [Cervical disc disorder at C5-C6 level with myelopathy] Onset: 07-28-2022 07-28-2022 Chronic Sprains and strains (1 source) Unspecified sprain of left wrist, initial encounter; Translations: [UNSPECIFIED SPRAIN LT WRIST INITIAL] Onset: 12-22-2021 Episodic Unclassified (2 sources) Parkinson's disease; Translations: [Primary parkinsonism (CMS/HCC)] 11-08-2023 Chronic Past or Other Problems Problem Classification Problem Date Documented Da te Episodic/Chronic Anxiety disorders (20 sources) Anxiety; Translations: [Anxiety disorder, unspecified] Onset: 7 Resolved: 4 05-08-2020 Chronic Coagulation and hemorrhagic disorders (20 sources) Factor II deficiency; Translations: [Hereditary deficiency of other clotting factors] Onset: 3 Resolved: 4 10-05-2022 Chronic Esophageal disorders (20 sources) Gastroesophageal reflux disease; Translations: [Gastro-esophageal reflux disease without esophagitis] Onset: 5 Resolved: 5 10-13-2022 Chronic Mood disorders (20 sources) Mood disorders Onset: 4 Resolved: 5 06-11-2023 Other and unspecified benign neoplasm (20 sources) Adenomatous polyp of colon ; Translations: [Benign neoplasm of colon, unspecified] Onset: 5 08-09-2024 Episodic Other circulatory disease (20 sources) Orthostatic hypotension; Translations: [Orthostatic hypotension] Onset: 3 Resolved: 4 07-28-2022 Episodic Other connective tissue disease (20 sources) Recurrent falls ; Translations: [Repeated falls] Onset: 3 07-29-2022 Episodic Other diseases of veins and lymphatics (20 sources) Venous insufficiency of leg; Translations: [Venous insufficiency (chronic) (peripheral)] Onset: 3 10-05-2022 Episodic Other ear and sense organ disorders (20 sources) Mixed conductive and sensorineural hearing loss of right ear; Translations: [Mixed conductive and sensorineural hearing loss, unilateral, right ear, with unrestricted hearing on the contralateral side] Onset: 8 Resolved: 4 10-13-2022 Chronic Other ear and sense organ disorders (20 sources) Hearing loss; Translations: [Unspecified hearing loss, unspecified ear] Onset: 3 Resolved: 4 10-13-2022 Chronic Other ear and sense organ disorders (20 sources) Sensorineural hearing loss; Translations: [Unspecified sensorineural hearing loss] Onset: 3 Resolved: 5 10-13-2022 Chronic Other gastrointestinal disorders (20 sources) Dysphagia; Translations: [Dysphagia, unspecified] Onset: 3 Resolved: 4 10-13-2022 Episodic Other hereditary and degenerative nervous system conditions (20 sources) Impaired cognition; Translations: [Mild cognitive impairment, so stated] Onset: 3 Resolved: 5 10-05-2022 Chronic Other nervous system disorders (20 sources) Disturbance of attention; Translations: [Attention and concentration deficit] Onset: 3 Resolved: 4 10-13-2022 Chronic Other nervous system disorders (20 sources) Tremor; Translations: [Tremor, unspecified] Onset: 3 07-28-2022 Episodic Other nervous system disorders (20 sources) Unsteady when standing; Translations: [Unsteadiness on feet] Onset: 3 Resolved: 3 10-05-2022 Episodic Other nutritional; endocrine; and metabolic disorders (20 sources) Obesity caused by energy imbalance; Translations: [Morbid (severe) obesity due to excess calories] Onset: 3 Resolved: 4 10-13-2022 Chronic Other nutritional; endocrine; and metabolic disorders (20 sources) Morbid obesity; Translations: [Morbid (severe) obesity due to excess calories] Onset: 9 Resolved: 3 01-20-2023 Chronic Other nutritional; endocrine; and metabolic disorders (20 sources) Obese class I; Translations: [Obesity, unspecified] Onset: 3 Resolved: 3 01-20-2023 Chronic Other screening for suspected conditions (not mental disorders or infectious disease) (20 sources) Patient encounter status; Translations: [Encounter for screening for malignant neoplasm of colon] Onset: 4 Resolved: 5 08-04-2019 Episodic Residual codes; unclassified (20 sources) Insomnia; Translations: [Insomnia, unspecified] Onset: 1 Resolved: 4 10-13-2022 Episodic Residual codes; unclassified (20 sources) Amnesia; Translations: [Other amnesia] Onset: 3 Resolved: 4 10-13-2022 Episodic Schizophrenia and other psychotic disorders (20 sources) Delusional disorder; Translations: [Delusional disorders] Onset: 7 Resolved: 3 01-20-2023 Chronic Schizophrenia and other psychotic disorders (20 sources) Brief psychotic disorder; Translations: [Acute psychosis] Onset: 4 Resolved: 5 04-24-2022 Episodic Suicide and intentional self-inflicted injury (20 sources) Suicidal thoughts; Translations: [Suicidal ideations] Onset: 4 Resolved: 4 10-14-2020 Episodic Unclassified (20 sources) Parkinsonism; Translations: [Parkinsonism, unspecified Parkinsonism type] Onset: 3 Resolved: 3 04-01-2023 Chronic Unclassified (1 source) Cough R05.9 Onset: 2 Resolved: 2 Viral infection (20 sources) Verruca plantaris; Translations: [Plantar wart] Onset: 0 Resolved: 5 10-13-2022 Episodic Viral infection (1 source) COVID-19 Onset: 2 Resolved: 2 Results Test Name Value Interpretation Reference Range Facility MR BRAIN WO CONTRASTon 06-02 MR BRAIN WO CONTRAST TITLE OF EXAM: MR BRAIN WO CONTRAST REASON FOR EXAM: Parkinson/tremor, short term memory loss, balance problems TECHNIQUE: Multisequence, multiplanar MRI of the brain COMPARISON: None. FINDINGS: Brain and intracranial structures: The ventricles, cisterns, and sulci are symmetric and normal in volume/caliber for age. Mild burden nonspecific supratentorial white matter T2 signal hyperintense lesions, most commonly a consequence of vascular risk factors. No mass lesion, hemorrhage, or acute infarct. Skull/scalp: Normal. Orbits and face (included portions): Normal. Paranasal sinuses and mastoid air cells (included portions): Near complete mucus and/or soft tissue filling of the right maxillary sinus with air-fluid level. There are a couple of subcentimeter right and a single left maxillary sinus mucous retention cysts (less likely polyps). Mucous or soft tissue fills a single right anterior ethmoid air cell. Otherwise clear paranasal sinuses. Mild thickening of the polanco of the right maxillary sinus. IMPRESSION: 1. No acute intracranial abnormality. 2. Findings suggesting acute on chronic right maxillary sinusitis. DICTATED ON: 06/02/2024 10:11 AM This report has been electronically signed in approved by the interpreting radiologist. Normal Not Available Cholesterol [Mass/volume] in Serum or PlasmaOrdered By: Jose Ramos on 04-25-2022 Cholesterol [Mass/Vol] 106 mg/dL 140-200 [facility] Comment on above: Chol less than 200 m g/dl low riskChol 201-239 mg/dl borderline riskChol 240 mg/dl and greater high risk Cholesterol in LDL Calc [Mas s/Vol]Ordered By: Jose Ramos on 04-25-2022 Cholesterol in LDL [Mass/Vol] 59 mg/dL 0-100 [facility] Comment on above: LDL ATP III CLASSIFI CATIONLDL less than 100 mg/dL OptimalLDL 100-129 mg/dL Near or above optimalLDL 130-159 mg/dL Borderline highLDL 160-189 mg/dL HighLDL greater than 189 mg/dL Very high Cholesterol in VLDL Calc [Ma ss/Vol]Ordered By: Jose Ramos on 04-25-2022 Cholesterol in VLDL [Mass/Vol] 11 mg/dL [facility] No Panel InformationOrdered By: Jose Ramos on 04-25-2022 25-Hydroxy Vitamin D Total 34.9 ng/mL 30-100 [facility] Comment on above: VITAMIN D STATUS 25( [place])VITAMIN D RANGE (ng/mL) Deficient <20 Insufficient 20 to <30Sufficient 30 to 100Reference: Hosea MF,Wendi NC, Greta CABA, et al. Evaluation,treatment, and prevention of vitamin D deficiency; an Endocrine Society clinical practice guideline. JCEM. 2010; 96(7):1911-30. Serum or plasma high density lipoprotein (HDL) cholesterol measurementOrdered By: Jose Ramos on 04-25-2022 Cholesterol in HDL [Mass/Vol] 35 mg/dL 29-71 [facility] Comment on above: HDL CHOL ATP-III CLA SSIFICATION Cardiovascular RiskHDL > or equal to 60 mg/dL LOWHDL < 40 mg/dL HIGH Serum or plasma total choles terol/high density lipoprotein (HDL) cholesterol mass ratOrdered By: Jose Ramos on 04-25-2022 Cholesterol.total/Choles terol in HDL [Mass ratio] 3.0 {ratio} <5.0 [facility] TSH DL <= 0.005 mIU/L QnOrde red By: Jose Ramos on 04-25-2022 TSH Qn 2.57 m[IU]/L 0.45-5.33 [facility] Triglyceride [Mass/volume] i n Serum or PlasmaOrdered By: Jose Ramos on 04-25-2022 Triglyceride [Mass/Vol] 58 mg/dL 35-149 [facility] Comment on above: TRIG ATP III CLASSIF ICATIONTRIG less than 150 mg/dL NormalTRIG 150-199 mg/dL Borderline highTRIG 200-500 mg/dL High TRIG greater than 500 mg/dL Very highStandard traceable to the Center for Disease Conrtrol and Prevention (CDC) test method. Albumin [Mass/volume] in Bod y fluidOrdered By: Zelalem Schmid on 04-24-2022 Albumin (Body fld) [Mass/Vol] 3.7 g/dL 3.2-5.5 [facility] Alkaline phosphatase [Enzyma tic activity/volume] in Serum or PlasmaOrdered By: Zelalem Schmid on 04-24-2022 ALP [Catalytic activity/Vol] 50 U/L 32-92 [facility] Amphetamine Screen Ql (U)Ord ered By: Zelalem Schmid on 04-24-2022 Amphetamines Ql (U) Negative Negative [facility] Aspartate aminotransferase [ Enzymatic activity/volume] in Serum or PlasmaOrdered By: Zelalem Schmid on 04-24-2022 AST [Catalytic activity/Vol] 30 U/L 10-42 [facility] Barbiturates [Presence] in U rineOrdered By: Zelalem Schmid on 04-24-2022 Barbiturates Ql (U) Negative Negative [facility] Basophils Auto (Bld) [#/Vol] Ordered By: Zelalem Schmid on 04-24-2022 Basophils (Bld) [#/Vol] 0.0 10*3/uL 0.0-0.2 [facility] Basophils/100 WBC Auto (Bld) Ordered By: Zelalem Schmid on 04-24-2022 Basophils/100 WBC (Bld) 0.4 % . [facility] Benzodiazepines [Presence] i n UrineOrdered By: Zelalem Schmid on 04-24-2022 Benzodiazepines Ql (U) Negative [facility] Bilirubin Test strip Ql (U)O rdered By: Zelalem Schmid on 04-24-2022 Bilirubin Ql (U) Negative Negative [facility] Bilirubin.total [Mass/volume ] in Serum or PlasmaOrdered By: Zelalem Schmid on 04-24-2022 Bilirubin [Mass/Vol] 0.6 mg/dL 0.3-1.2 [facility] Calcium [Mass/volume] in Ser um or PlasmaOrdered By: Zelalem Schmid on 04-24-2022 Calcium [Mass/Vol] 9.5 mg/dL 8.2-10.[address] [facility] Cannabinoids [Presence] in U rine by Screen methodOrdered By: Zelalem Schmid on 04-24-2022 Cannabinoids Screen Ql (U) Negative Negative [facility] Comment on above: These are unconfirme d results and should not be used for legal purposes. Drug Cut-Off Concentration: AMPH 1000 ng/mL JUAQUIN 200 ng/mL ALBERT 200 ng/mL COCM 300 ng/mL OP 300 ng/mL PCP 25 ng/mL THC 20 ng/mL Carbon dioxide, total [Moles /volume] in Serum or PlasmaOrdered By: Zelalem Schmid on 04-24-2022 CO2 [Moles/Vol] 28.3 mmol/L 22.0-30.0 [facility] Chloride [Moles/volume] in S amelia or PlasmaOrdered By: Zelalem Schmid on 04-24-2022 Chloride [Moles/Vol] 102 mmol/L 95-114 [facility] Color Auto (U)Ordered By: Dio Schmid on 04-24-2022 Color (U) Yellow Yellow [facility] Creatinine and Glomerular fi ltration rate.predicted panel (S/P/Bld)Ordered By: Zelalem Schmid on 04-24-2022 Creatinine [Mass/Vol] 0.90 mg/dL 0.64-1.27 [facility] Eosinophils Auto (Bld) [#/Vo l]Ordered By: Zelalem Schmid on 04-24-2022 Eosinophils (Bld) [#/Vol] 0.1 10*3/uL 0.0-0.45 [facility] Eosinophils/100 WBC Auto (Bl d)Ordered By: Zelalem Schmid on 04-24-2022 Eosinophils/100 WBC (Bld) 1.4 % . [facility] Erythrocyte distribution wid th Auto (RBC) [Ratio]Ordered By: Zelalem Schmid on 04-24-2022 Erythrocyte distribution width (RBC) [Ratio] 14.0 % 12.0-14.8 [facility] Estimated glomerular filtrat ion rate (GFR) non- AmericanOrdered By: Zelalem Schmid on 04-24-2022 GFR/1.73 sq M.predicted among non-blacks MDRD (S/P/Bld) [Vol rate/Area] > 60 mL/Min [facility] Ethanol [Mass/volume] in Ser um or PlasmaOrdered By: Zelalem Schmid on 04-24-2022 Ethanol [Mass/Vol] mg/dL [facility] Ethanol [Mass/Vol] TNP [facility] Comment on above: Test not performed Globulin Calc (S) [Mass/Vol] Ordered By: Zelalem Schmid on 04-24-2022 Globulin (S) [Mass/Vol] 2.6 g/dL [facility] Glucose [Mass/volume] in Ser um or PlasmaOrdered By: Zelalem Schmid on 04-24-2022 Glucose [Mass/Vol] 88 mg/dL 70-[address] [facility] Comment on above: ADA recommended refe rence rangeRandom Glucose Reference Range is dependent on time and content of last meal. Glucose of more than 200 mg/dL in a nonstressed, ambulatory subject supports the diagnosis of Diabetes Mellitus. Hematocrit Auto (Bld) [Volum e fraction]Ordered By: Zelalem Schmid on 04-24-2022 Hematocrit (Bld) [Volume fraction] 44.2 % 38.8-50.0 [facility] Hemoglobin [Mass/volume] in BloodOrdered By: Zelalem Schmid on 04-24-2022 Hemoglobin (Bld) [Mass/Vol] 14.6 g/dL 13.0-17.0 [facility] Ketones Auto test strip (U) [Mass/Vol]Ordered By: Zelalem Schmid on 04-24-2022 Ketones (U) [Mass/Vol] Trace Negative [facility] - Drug toxicology Ordered By: Zelalem Schmid on 04-24-2022 Opiates Ql (U) Negative Negative [facility] Leukocytes [#/volume] correc ashley for nucleated erythrocytes in Blood by Automated counOrdered By: Zelalem Schmid on 04-24-2022 WBC corrected for nucl RBC Auto (Bld) [#/Vol] 6.4 10*3/uL 4.1-10.5 [facility] Lymphocytes Auto (Bld) [#/Vo l]Ordered By: Zelalem Schmid on 04-24-2022 Lymphocytes (Bld) [#/Vol] 2.1 10*3/uL 1.00-4.8 [facility] Lymphocytes/100 WBC Auto (Bl d)Ordered By: Zelalem Schmid on 04-24-2022 Lymphocytes/100 WBC (Bld) 32.5 % . [facility] MCH Auto (RBC) [Entitic mass ]Ordered By: Zelalem Schmid on 04-24-2022 MCH (RBC) [Entitic mass] 32.6 pg 27.5-35.2 [facility] MCHC Auto (RBC) [Mass/Vol]Or dered By: Zelalem Schmid on 04-24-2022 MCHC (RBC) [Mass/Vol] 33.0 g/dL 32.5-35.6 [facility] MCV Auto (RBC) [Entitic vol] Ordered By: Zelalem Schmid on 04-24-2022 MCV (RBC) [Entitic vol] 98.7 fL 83.5-101 [facility] Monocyte distribution width [Entitic volume] in Blood by AutomatedOrdered By: Zelalem Schmid on 04-24-2022 Monocyte distribution width Auto (Bld) [Entitic vol] 18.92 % 0.00-20.00 [facility] Monocytes Auto (Bld) [#/Vol] Ordered By: Zelalem Schmid on 04-24-2022 Monocytes (Bld) [#/Vol] 0.9 10*3/uL 0.0-0.8 [facility] Monocytes/100 WBC Auto (Bld) Ordered By: Zelalem Schmid on 04-24-2022 Monocytes/100 WBC (Bld) 13.8 % . [facility] Neutrophils Auto (Bld) [#/Vo l]Ordered By: Zelalem Schmid on 04-24-2022 Neutrophils (Bld) [#/Vol] 3.3 10*3/uL 1.8-7.7 [facility] Neutrophils/100 WBC Auto (Bl d)Ordered By: Zelalem Schmid on 04-24-2022 Neutrophils/100 WBC (Bld) 51.9 % . [facility] Nitrite Test strip Ql (U)Ord ered By: Zelalem Schmid on 04-24-2022 Nitrite Ql (U) Negative Negative [facility] No Panel InformationOrdered By: Zelalem Schmid on 04-24-2022 Estimated GFR () > 60 mL/Min [facility] Comment on above: GFR estimated refere nce range: According to KDOQI guidelines, <60 ml/min/1.73m2 is sufficient to diagnose a patient with chronic kidney disease. Pharmacy Creatinine Clearance (Chem 104.08 [facility] Nucleated erythrocytes [Pres ence] in Blood by Automated countOrdered By: Zelalem Schmid on 04-24-2022 Nucleated RBC Auto Ql (Bld) 0.3 /100{WBC} 0-0.5 [facility] Phencyclidine Screen Ql (U)O rdered By: Zelalem Schmid on 04-24-2022 Phencyclidine Ql (U) Negative Negative [facility] Platelet mean volume Auto (B ld) [Entitic vol]Ordered By: Zelalem Schmid on 04-24-2022 Platelet mean volume (Bld) [Entitic vol] 8.4 fL 6.6-10.1 [facility] Platelets Auto (Bld) [#/Vol] Ordered By: Zelalem Schmid on 04-24-2022 Platelets (Bld) [#/Vol] 144 10*3/uL 150-450 [facility] Potassium [Moles/volume] in Serum or PlasmaOrdered By: Zelalem Schmid on 04-24-2022 Potassium [Moles/Vol] 4.3 mmol/L 3.5-5.1 [facility] Protein Auto test strip (U) [Mass/Vol]Ordered By: Zelalem Schmid on 04-24-2022 Protein (U) [Mass/Vol] Negative Negative [facility] Protein [Mass/volume] in Ser um or PlasmaOrdered By: Zelalem Schmid on 04-24-2022 Protein [Mass/Vol] 6.3 g/dL 6.1-7.[address] [facility] RBC Auto (Bld) [#/Vol]Ordere d By: Zelalem Schmid on 04-24-2022 RBC (Bld) [#/Vol] 4.47 10*6/uL 3.90-5.60 [facility] Serum or plasma alanine quach otransferase measurement without P-5'-P (enzymatic activiOrdered By: Zelalem Schmid on 04-24-2022 ALT No additional P-5'-P [Catalytic activity/Vol] 33 U/L 10-60 [facility] Serum or plasma albumin/glob ulin mass ratioOrdered By: Zelalem Schmid on 04-24-2022 Albumin/Globulin [Mass ratio] 1.4 {ratio} [facility] Serum or plasma anion gap de terminationOrdered By: Zelalem Schmid on 04-24-2022 Anion gap [Moles/Vol] 14.0 mmol/L 6.0-15.0 [facility] Sodium [Moles/volume] in Ser um or PlasmaOrdered By: Zelalem Schmid on 04-24-2022 Sodium [Moles/Vol] 140 mmol/L 136-[address] [facility] Specific gravity Auto test s trip (U) [Rel density]Ordered By: Zelalem Schmid on 04-24-2022 Specific gravity (U) [Rel density] 1.023 1.001-1.030 [facility] Urea nitrogen [Mass/volume] in Serum or PlasmaOrdered By: Zelalem Schmid on 04-24-2022 Urea nitrogen [Mass/Vol] 25 mg/dL 9- [facility] Urine clarity by refractomet ry automatedOrdered By: Zelalem Schmid on 04-24-2022 Clarity Refractometry automated (U) Clear Clear [facility] Urine cocaine detectionOrder ed By: Zelalem Schmid on 04-24-2022 Cocaine Ql (U) Negative Negative [facility] Urine glucose measurement by automated test strip (mass/volume)Ordered By: Zelalem Schmid on 04-24-2022 Glucose Auto test strip (U) [Mass/Vol] Normal mg/dL Normal [facility] Urine hemoglobin detection b y automated test stripOrdered By: Zelalem Schmid on 04-24-2022 Hemoglobin Auto test strip Ql (U) Negative Negative [facility] Urine leukocyte esterase det ection by automated test stripOrdered By: Zelalem Schmid on 04-24-2022 Leukocyte esterase Auto test strip Ql (U) Negative Negative [facility] Urobilinogen Auto test strip (U) [Mass/Vol]Ordered By: Zelalem Scmhid on 04-24-2022 Urobilinogen (U) [Mass/Vol] Normal mg/dL Normal [facility] WBC Auto (Bld) [#/Vol]Ordere d By: Zelalem Schmid on 04-24-2022 WBC (Bld) [#/Vol] 6.4 10*3/uL 4.1-10.[address] [facility] pH Auto test strip (U)Ordere d By: Zelalem Schmid on 04-24-2022 pH (U) 7.0 [pH] 5.0-9.0 [facility] No Panel InformationOrdered By: Tristan Luciano on 04-15-2022 Valproic Acid (Depakene) Level 44.1 ug/mL 50.0-100.0 [facility] Comment on above: Last dose: - Cholesterol [Mass/volume] in Serum or PlasmaOrdered By: Jose Ramos on 04-09-2022 Cholesterol [Mass/Vol] 115 mg/dL 140-200 [facility] Comment on above: Chol less than 200 m g/dl low riskChol 201-239 mg/dl borderline riskChol 240 mg/dl and greater high risk Cholesterol in LDL Calc [Mas s/Vol]Ordered By: Jose Ramos on 04-09-2022 Cholesterol in LDL [Mass/Vol] 66 mg/dL 0-100 [facility] Comment on above: LDL ATP III CLASSIFI CATIONLDL less than 100 mg/dL OptimalLDL 100-129 mg/dL Near or above optimalLDL 130-159 mg/dL Borderline highLDL 160-189 mg/dL HighLDL greater than 189 mg/dL Very high Cholesterol in VLDL Calc [Ma ss/Vol]Ordered By: Jose Ramos on 04-09-2022 Cholesterol in VLDL [Mass/Vol] 10 mg/dL [facility] No Panel InformationOrdered By: Jose Ramos on 04-09-2022 25-Hydroxy Vitamin D Total 42.7 ng/mL 30-100 [facility] Comment on above: VITAMIN D STATUS 25( [place])VITAMIN D RANGE (ng/mL) Deficient <20 Insufficient 20 to <30Sufficient 30 to 100Reference: Hosea MF,Wendi NC, Greta CABA, et al. Evaluation,treatment, and prevention of vitamin D deficiency; an Endocrine Society clinical practice guideline. JCEM. 2010; 96(7):1911-30. Serum or plasma high density lipoprotein (HDL) cholesterol measurementOrdered By: Jose Ramos on 04-09-2022 Cholesterol in HDL [Mass/Vol] 38 mg/dL 29-71 [facility] Comment on above: HDL CHOL ATP-III CLA SSIFICATION Cardiovascular RiskHDL > or equal to 60 mg/dL LOWHDL < 40 mg/dL HIGH Serum or plasma total choles terol/high density lipoprotein (HDL) cholesterol mass ratOrdered By: Jose Ramos on 04-09-2022 Cholesterol.total/Choles terol in HDL [Mass ratio] 3.0 {ratio} <5.0 [facility] TSH DL <= 0.005 mIU/L QnOrde red By: Jose Ramos on 04-09-2022 TSH Qn 2.02 m[IU]/L 0.45-5.33 [facility] Triglyceride [Mass/volume] i n Serum or PlasmaOrdered By: Jose Ramos on 04-09-2022 Triglyceride [Mass/Vol] 53 mg/dL 35-149 [facility] Comment on above: TRIG ATP III CLASSIF ICATIONTRIG less than 150 mg/dL NormalTRIG 150-199 mg/dL Borderline highTRIG 200-500 mg/dL High TRIG greater than 500 mg/dL Very highStandard traceable to the Center for Disease Conrtrol and Prevention (CDC) test method. Amphetamine Screen Ql (U)Ord ered By: Easton Knowles on 04-08-2022 Amphetamines Ql (U) Negative Negative [facility] Barbiturates [Presence] in U rineOrdered By: Easton Knowles on 04-08-2022 Barbiturates Ql (U) Negative Negative [facility] Basophils Auto (Bld) [#/Vol] Ordered By: Easton Knowles on 04-08-2022 Basophils (Bld) [#/Vol] 0.0 10*3/uL 0.0-0.2 [facility] Basophils/100 WBC Auto (Bld) Ordered By: Easton Knowles on 04-08-2022 Basophils/100 WBC (Bld) 0.3 % . [facility] Benzodiazepines [Presence] i n UrineOrdered By: Easton Knowles on 04-08-2022 Benzodiazepines Ql (U) Negative [facility] Bilirubin Auto test strip Ql (U)Ordered By: Easton Knowles on 04-08-2022 Bilirubin Ql (U) Negative Negative [facility] Body fluid albumin measureme nt (mass/volume)Ordered By: Easton Knowles on 04-08-2022 Albumin (Body fld) [Mass/Vol] 3.6 g/dL 3.2-5.5 [facility] Cannabinoids [Presence] in U rine by Screen methodOrdered By: Easton Knowles on 04-08-2022 Cannabinoids Screen Ql (U) Negative Negative [facility] Comment on above: These are unconfirme d results and should not be used for legal purposes. Drug Cut-Off Concentration: AMPH 1000 ng/mL JUAQUIN 200 ng/mL ALBERT 200 ng/mL COCM 300 ng/mL OP 300 ng/mL PCP 25 ng/mL THC 20 ng/mL Creatinine and Glomerular fi ltration rate.predicted panel (S/P/Bld)Ordered By: Easton Knowles on 04-08-2022 Creatinine [Mass/Vol] 0.86 mg/dL 0.64-1.27 [facility] Eosinophils Auto (Bld) [#/Vo l]Ordered By: Easton Knowles on 04-08-2022 Eosinophils (Bld) [#/Vol] 0.1 10*3/uL 0.0-0.45 [facility] Eosinophils/100 WBC Auto (Bl d)Ordered By: Easton Knowles on 04-08-2022 Eosinophils/100 WBC (Bld) 0.9 % . [facility] Erythrocyte distribution wid th Auto (RBC) [Ratio]Ordered By: Easton Knowles on 04-08-2022 Erythrocyte distribution width (RBC) [Ratio] 13.7 % 12.0-14.8 [facility] Estimated glomerular filtrat ion rate (GFR) non- AmericanOrdered By: Easton Knowles on 04-08-2022 GFR/1.73 sq M.predicted among non-blacks MDRD (S/P/Bld) [Vol rate/Area] > 60 mL/Min [facility] Globulin Calc (S) [Mass/Vol] Ordered By: Easton Knowles on 04-08-2022 Globulin (S) [Mass/Vol] 2.4 g/dL [facility] Hematocrit Auto (Bld) [Volum e fraction]Ordered By: Easton Knowles on 04-08-2022 Hematocrit (Bld) [Volume fraction] 42.9 % 38.8-50.0 [facility] Hemoglobin [Mass/volume] in BloodOrdered By: Easton Knowles on 04-08-2022 Hemoglobin (Bld) [Mass/Vol] 14.2 g/dL 13.0-17.0 [facility] Ketones Auto test strip (U) [Mass/Vol]Ordered By: Easton Knowles on 04-08-2022 Ketones (U) [Mass/Vol] 1+ Negative Fi [facility] Laboratory - Drug toxicology Ordered By: Easton Knowles on 04-08-2022 Opiates Ql (U) Negative Negative [facility] Leukocytes [#/volume] correc ashley for nucleated erythrocytes in Blood by Automated counOrdered By: Easton Knowles on 04-08-2022 WBC corrected for nucl RBC Auto (Bld) [#/Vol] 5.8 10*3/uL 4.1-10.5 [facility] Lymphocytes Auto (Bld) [#/Vo l]Ordered By: Easton Knowles on 04-08-2022 Lymphocytes (Bld) [#/Vol] 2.3 10*3/uL 1.00-4.8 [facility] Lymphocytes/100 WBC Auto (Bl d)Ordered By: Easton Knowles on 04-08-2022 Lymphocytes/100 WBC (Bld) 39.1 % . [facility] MCH Auto (RBC) [Entitic mass ]Ordered By: Easton Knowles on 04-08-2022 MCH (RBC) [Entitic mass] 32.0 pg 27.5-35.2 [facility] MCHC Auto (RBC) [Mass/Vol]Or dered By: Easton Knowles on 04-08-2022 MCHC (RBC) [Mass/Vol] 33.1 g/dL 32.5-35.6 [facility] MCV Auto (RBC) [Entitic vol] Ordered By: Easton Knowles on 04-08-2022 MCV (RBC) [Entitic vol] 96.7 fL 83.5-101 [facility] Monocyte distribution width [Entitic volume] in Blood by AutomatedOrdered By: Easton Knowles on 04-08-2022 Monocyte distribution width Auto (Bld) [Entitic vol] 18.58 % 0.00-20.00 [facility] Monocytes Auto (Bld) [#/Vol] Ordered By: Easton Knowles on 04-08-2022 Monocytes (Bld) [#/Vol] 0.6 10*3/uL 0.0-0.8 [facility] Monocytes/100 WBC Auto (Bld) Ordered By: Easton Knowles on 04-08-2022 Monocytes/100 WBC (Bld) 10.6 % . [facility] Neutrophils Auto (Bld) [#/Vo l]Ordered By: Easton Knowles on 04-08-2022 Neutrophils (Bld) [#/Vol] 2.8 10*3/uL 1.8-7.7 [facility] Neutrophils/100 WBC Auto (Bl d)Ordered By: Easton Knowles on 04-08-2022 Neutrophils/100 WBC (Bld) 49.1 % . [facility] No Panel InformationOrdered By: Easton Knowles on 04-08-2022 Estimated GFR () > 60 mL/Min [facility] Comment on above: GFR estimated refere nce range: According to KDOQI guidelines, <60 ml/min/1.73m2 is sufficient to diagnose a patient with chronic kidney disease. Pharmacy Creatinine Clearance (Chem 109.16 [facility] Nucleated erythrocytes [Pres ence] in Blood by Automated countOrdered By: Easton Knowles on 04-08-2022 Nucleated RBC Auto Ql (Bld) 0.1 /100{WBC} 0-0.5 [facility] Phencyclidine Screen Ql (U)O rdered By: Easton Knowles on 04-08-2022 Phencyclidine Ql (U) Negative Negative [facility] Platelet mean volume Auto (B ld) [Entitic vol]Ordered By: Easton Knowles on 04-08-2022 Platelet mean volume (Bld) [Entitic vol] 8.6 fL 6.6-10.1 [facility] Platelets Auto (Bld) [#/Vol] Ordered By: Easton Knowles on 04-08-2022 Platelets (Bld) [#/Vol] 123 10*3/uL 150-450 [facility] Protein Auto test strip (U) [Mass/Vol]Ordered By: Easton Knowles on 04-08-2022 Protein (U) [Mass/Vol] Negative Negative [facility] Protein [Mass/volume] in Ser um or PlasmaOrdered By: Easton Knowles on 04-08-2022 Protein [Mass/Vol] 6.0 g/dL 6.1-7.[address] [facility] RBC Auto (Bld) [#/Vol]Ordere d By: Easton Knowles on 04-08-2022 RBC (Bld) [#/Vol] 4.44 10*6/uL 3.90-5.60 [facility] Serum or plasma alanine quach otransferase measurement without P-5'-P (enzymatic activiOrdered By: Easton Knowles on 04-08-2022 ALT No additional P-5'-P [Catalytic activity/Vol] 32 U/L 10-60 [facility] Serum or plasma albumin/glob ulin mass ratioOrdered By: Easton Knowles on 04-08-2022 Albumin/Globulin [Mass ratio] 1.5 {ratio} [facility] Serum or plasma alkaline elizabeth sphatase measurement (enzymatic activity/volume)Ordered By: Easton Knowles on 04-08-2022 ALP [Catalytic activity/Vol] 54 U/L 32-92 [facility] Serum or plasma anion gap de terminationOrdered By: Easton Knowles on 04-08-2022 Anion gap [Moles/Vol] 14.5 mmol/L 6.0-15.0 [facility] Serum or plasma aspartate am inotransferase measurement (enzymatic activity/volume)Ordered By: Easton Knowles on 04-08-2022 AST [Catalytic activity/Vol] 26 U/L 10-42 [facility] Serum or plasma calcium deja urement (mass/volume)Ordered By: Easton Knowles on 04-08-2022 Calcium [Mass/Vol] 9.4 mg/dL 8.2-10.[address] [facility] Serum or plasma chloride raj surement (moles/volume)Ordered By: Easton Knowles on 04-08-2022 Chloride [Moles/Vol] 101 mmol/L 95-114 [facility] Serum or plasma ethanol deja urement (mass/volume)Ordered By: Easton Knowles on 04-08-2022 Ethanol [Mass/Vol] mg/dL [facility] Ethanol [Mass/Vol] TNP [facility] Comment on above: Test not performed Serum or plasma glucose deja urement (mass/volume)Ordered By: Easton Knowles on 04-08-2022 Glucose [Mass/Vol] 96 mg/dL 70-[address] [facility] Comment on above: ADA recommended refe rence rangeRandom Glucose Reference Range is dependent on time and content of last meal. Glucose of more than 200 mg/dL in a nonstressed, ambulatory subject supports the diagnosis of Diabetes Mellitus. Serum or plasma potassium me asurement (moles/volume)Ordered By: Easton Knowles on 04-08-2022 Potassium [Moles/Vol] 3.9 mmol/L 3.5-5.1 [facility] Serum or plasma sodium measu rement (moles/volume)Ordered By: Easton Knowles on 04-08-2022 Sodium [Moles/Vol] 139 mmol/L 136-[address] [facility] Serum or plasma total biliru bin measurement (mass/volume)Ordered By: Easton Knowles on 04-08-2022 Bilirubin [Mass/Vol] 0.7 mg/dL 0.3-1.2 [facility] Serum or plasma total carbon dioxide measurement (moles/volume)Ordered By: Easton Knowles on 04-08-2022 CO2 [Moles/Vol] 27.4 mmol/L 22.0-30.0 [facility] Serum or plasma urea nitroge n measurement (mass/volume)Ordered By: Easton Knowles on 04-08-2022 Urea nitrogen [Mass/Vol] 22 mg/dL 9 [facility] Urine appearanceOrdered By: Easton Knowles on 04-08-2022 Appearance (U) Clear Clear [facility] Urine cocaine detectionOrder ed By: Easton Knowles on 04-08-2022 Cocaine Ql (U) Negative Negative [facility] Urine colorOrdered By: Kailyn Knowles on 04-08-2022 Color (U) Yellow Yellow [facility] Urine glucose measurement by automated test strip (mass/volume)Ordered By: Easton Knowles on 04-08-2022 Glucose Auto test strip (U) [Mass/Vol] Normal mg/dL Normal [facility] Urine hemoglobin detection b y automated test stripOrdered By: Easton Knowles on 04-08-2022 Hemoglobin Auto test strip Ql (U) Negative Negative [facility] Urine leukocyte esterase det ection by automated test stripOrdered By: Easton Knowles on 04-08-2022 Leukocyte esterase Auto test strip Ql (U) Negative Negative [facility] Urine nitrite detection by a utomated test stripOrdered By: Easton Knowles on 04-08-2022 Nitrite Auto test strip Ql (U) Negative Negative [facility] Urobilinogen Auto test strip (U) [Mass/Vol]Ordered By: Easton Knowles on 04-08-2022 Urobilinogen (U) [Mass/Vol] Normal mg/dL Normal [facility] WBC Auto (Bld) [#/Vol]Ordere d By: Easton Knowles on 04-08-2022 WBC (Bld) [#/Vol] 5.8 10*3/uL 4.1-10.[address] [facility] pH Auto test strip (U)Ordere d By: Easton Knowles on 04-08-2022 pH (U) 1.030 [pH] 1.001-1.030 [facility] pH (U) 6.0 [pH] 5.0-9.0 [facility] XR WRIST LT MIN 3 Von 2021 XR WRIST LT MIN 3 V EXAM: XR WRIST LT NV N 3 V HISTORY: The patient is a 61-year-old male with left wrist pain after falling today. COMPARISON: None. FINDINGS: The left wrist is radiographically negative with no evidence of fracture, dislocation, joint space narrowing, or other significant osseous or articular abnormalities. IMPRESSION: Negative. Electronically authenticated by: JENI RENO Date: 2021-12-20 00:08 Normal [facility] Q - COMPREHENSIVE METABOLIC PANEL W/EGFRon 07-11-2021 Albumin [Mass/Vol] 4.1 g/dL Normal 3.6-5.1 Makenzie [facility] [employer] Autom[employer] Operator Comment on above: Order Comment: [facility] performed at: [facility], [address] [place] [address], [phone], Tamping Machine Operator: Fidel Hester MD [facility] Date/Time: [facility] Results Received Date/Time: [facility] Reported Date/Time: Performed By: #### 1 [id number] #### [facility] Default [address] [place] [address] Albumin/Globulin [Mass ratio] 2.1 {ratio} Normal 1.0-2.5 [facility] [employer] Operator Comment on above: Order Comment: [facility] performed at: [facility], [address] [place] [address], [address] [place] [address], [phone], Tamping Machine Operator: Fiedl Hester MD [facility] Date/Time: [facility] Results Received Date/Time: [facility] Reported Date/Time: Performed By: #### 1 [id number] #### [facility] Default [address] [place] [address] ALP [Catalytic activity/Vol] 48 U/L Normal 35-144 [facility] Specialist Comment on above: Order Comment: [facility] performed at: [facility], [facility], [address] [place] [address], [address] [place] [address], [address] [place] [address], Tamping Machine Operator: Fidel Hester MD [facility] Date/Time: [facility] Results Received Date/Time: [facility] Reported Date/Time: Performed By: #### 1 [id number] #### [facility] Default [address] [place] [address] ALT [Catalytic activity/Vol] 14 U/L Normal 9-46 [facility] Specialist Comment on above: Order Comment: [facility] performed at: [facility], [facility], [address] [place] [address], [address] [place] [address], [address] [place] [address], Tamping Machine Operator: Fidel Hester MD [facility] Date/Time: [facility] Results Received Date/Time: [facility] Reported Date/Time: Performed By: #### 1 [id number] #### [facility] [address] [place] [address] AST [Catalytic activity/Vol] 15 U/L Normal 10-35 [facility] Specialist Comment on above: Order Comment: [facility] performed at: [facility], [facility], [address] [place] [address], [address] [place] [address], [address] [place] [address], Tamping Machine Operator: Fidel Hesetr MD [facility] Date/Time: [facility] Results Received Date/Time: [facility] Reported Date/Time: Performed By: #### 1 [id number] #### [facility] Default [address] [place] [address] Bilirubin [Mass/Vol] 0.5 mg/dL Normal 0.2-1.[address] [facility] Comment on above: Order Comment: [facility] performed at: [place], [facility], [address] , [address] [place] [address], [address] [place] [address], Tamping Machine Operator: Fidel Hester MD [facility] Date/Time: [facility] Results Received Date/Time: [facility] Reported Date/Time: Performed By: #### 1 [id number] #### [facility] Default [address] [place] [address] BUN/CREA 26 NOT APPLICABLE Normal 6-22 [place] [employer] Comment on above: Order Comment: [facility] performed at: [place], [address] [facility], [address] [place] [address], [address] [place] [address], Tamping Machine Operator: Fidel Hester MD [facility] Date/Time: [facility] Results Received Date/Time: [facility] Reported Date/Time: Performed By: #### 1 [id number] #### [facility] Default [address] [place] [address] Calcium [Mass/Vol] 9.2 mg/dL Normal 8.6-10.3 Makenzie [facility] Dye Automation Operator Comment on above: Order Comment: [facility] performed at: [facility], [address] [facility], [address] [place] [address], [address] [place] [address], Tamping Machine Operator: Fidel Hester MD [facility] Date/Time: [facility] Results Received Date/Time: [facility] Reported Date/Time: Performed By: #### 1 [id number] #### [facility] Default [address] [place] [address] Chloride [Moles/Vol] 105 mmol/L Normal 98-110 Jazmin moss [place] [employer] Comment on above: Order Comment: [facility] performed at: [facility], [address] , [address] [place] [address], [address] [place] [address], Tamping Machine Operator: Fidel Hester MD [facility] Date/Time: [facility] Results Received Date/Time: [facility] Reported Date/Time: Performed By: #### 1 [id number] #### [facility] Default [address] [place] [address] CO2 [Moles/Vol] 30 mmol/L Normal 20-32 [facility] Comment on above: Order Comment: [facility] performed at: [place], [address] [facility], [address] [place] [address], [address] [place] [address], Tamping Machine Operator: Fidel Hester MD [facility] Date/Time: [facility] Results Received Date/Time: [facility] Reported Date/Time: Performed By: #### 1 [id number] #### [facility] Default [address] [place] [address] Creatinine [Mass/Vol] 0.97 mg/dL Normal 0.70-1.25 [facility] Comment on above: Order Comment: [facility] performed at: [place], [address] [facility], [address] [place] [address], [address] [place] [address], Tamping Machine Operator: Fidel Hester MD [facility] Date/Time: [facility] Results Received Date/Time: [facility] Reported Date/Time: Result Comment: For patients >49 years of age, the reference limit for Creatinine is approximately 13% higher for people identified as -Cymraes. Performed By: #### 1 [id number] #### [facility] Default [address] [place] [address] eGFRAA ([facility]) 96 mL/min/1.73m2 Normal > OR = [address] [facility] Comment on above: Order Comment: [facility] performed at: [place], [address] [facility], [address] [place] [address], [address] [place] [address], Tamping Machine Operator: Fidel Hester MD [facility] Date/Time: [facility] Results Received Date/Time: [facility] Reported Date/Time: Performed By: #### 1 [id number] #### [facility] Default [address] [place] [address] eGFRNAA ([facility]) 83 mL/min/1.73m2 Normal > OR = 60 Ron rene [place] [employer] Comment on above: Order Comment: [facility] performed at: [place], [address] [place] [address], [address] [place] [address], [address] [place] [address], Tamping Machine Operator: Fidel Hester MD [facility] Date/Time: [facility] Results Received Date/Time: [facility] Reported Date/Time: Performed By: #### 1 [id number] #### [facility] Default [address] [place] [address] Globulin (S) [Mass/Vol] 2.0 g/dL Normal 1.9-3.7 N emyarley [place] [employer] Comment on above: Order Comment: [facility] performed at: [facility], [facility], [address] [place] [address], [address] [place] [address], [address] [place] [address], Tamping Machine Operator: Fidel Hester MD [facility] Date/Time: [facility] Results Received Date/Time: [facility] Reported Date/Time: Performed By: #### 1 [id number] #### [facility] Default [address] [place] [address] Glucose [Mass/Vol] 91 mg/dL Normal 65-99 Makenzie govea [place] [employer] Comment on above: Order Comment: [facility] performed at: [place], [address] [place] [address], [address] [place] [address], [address] [place] [address], Tamping Machine Operator: Fidel Hester MD [facility] Date/Time: [facility] Results Received Date/Time: [facility] Reported Date/Time: Result Comment: Fasting reference interval Performed By: #### 1 [id number] #### [facility] Default [address] [place] [address] Potassium [Moles/Vol] 4.4 mmol/L Normal 3.5-5.3 Ron rene [place] [employer] Comment on above: Order Comment: [facility] performed at: [place], [address] , [address] [place] [address], [phone], Tamping Machine Operator: Fidel Hester MD [facility] Date/Time: [facility] Results Received Date/Time: [facility] Reported Date/Time: Performed By: #### 1 [id number] #### [facility] Default [address] [place] [address] Protein [Mass/Vol] 6.1 g/dL Normal 6.1-8.1 Makenzie rn [place] [employer] Comment on above: Order Comment: [facility] performed at: [place], [address] [facility], [address] [place] [address], [address] [place] [address], Tamping Machine Operator: Fidel Hester MD [facility] Date/Time: [facility] Results Received Date/Time: [facility] Reported Date/Time: Performed By: #### 1 [id number] #### [facility] Default [address] [place] [address] Sodium [Moles/Vol] 143 mmol/L Normal 135-146 Juan Pablo rn [place] [employer] Comment on above: Order Comment: [facility] performed at: [place], [address] , [address] [place] [address], [phone], Tamping Machine Operator: Fidel Hester MD [facility] Date/Time: [facility] Results Received Date/Time: [facility] Reported Date/Time: Performed By: #### 1 [id number] #### [facility] Default [address] [place] [address] Urea nitrogen [Mass/Vol] 25 mg/dL Normal 7-25 [facility] Dye Automation Operator Comment on above: Order Comment: [facility] performed at: [place], [facility], [address] , [address] [place] [address], [phone], Tamping Machine Operator: Fidel Hester MD [facility] Date/Time: [facility] Results Received Date/Time: [id number] [facility] Reported Date/Time: [id number] Performed By: #### 1 [id number] #### [facility] Default [address] [place] [address] Complete Blood Count with Au to Diffon 03-14-2021 Basophils (Bld) [#/Vol] 0.03 10*3/uL Normal 0.00-0.20 [facility] Specialist Comment on above: Performed By: #### L IPD, CBCAD, CMP #### [facility] [address] [place], [place] [id number] Basophils/100 WBC (Bld) 0.5 % Normal N [facility] Specialist Comment on above: Performed By: #### L IPD, CBCAD, CMP #### [facility] [address] [place], [place] [id number] Eosinophils (Bld) [#/Vol] 0.07 10*3/uL Normal 0.02-0.50 [facility] Dye Automation Operator Comment on above: Performed By: #### L IPD, CBCAD, CMP #### [facility] [address] [place], [place] [id number] Eosinophils/100 WBC (Bld) 1.2 % Normal [facility] Specialist Comment on above: Performed By: #### L IPD, CBCAD, CMP #### [facility] [address] [place], [place] [id number] Erythrocyte distribution width (RBC) [Ratio] 12.7 % Normal 11.0-15.0 [facility] Comment on above: Performed By: #### L IPD, CBCAD, CMP #### [facility] [address] [place], [place] [id number] Hematocrit (Bld) [Volume fraction] 47.3 % Normal 38.5-50.0 [facility] Specialist Comment on above: Performed By: #### L IPD, CBCAD, CMP #### [facility] [address] [place], [place] [id number] Hemoglobin (Bld) [Mass/Vol] 15.5 g/dL Normal 13.0-17.1 [facility] Specialist Comment on above: Performed By: #### L IPD, CBCAD, CMP #### [facility] [address] [place], [place] [id number] Lymphocytes (Bld) [#/Vol] 2.5 10*3/uL Normal 0.9-3.9 [facility] Comment on above: Performed By: #### L IPD, CBCAD, CMP #### [facility] [address] [place], [place] [id number] Lymphocytes/100 WBC (Bld) 44.9 % Normal [facility] Comment on above: Performed By: #### L IPD, CBCAD, CMP #### [facility] [address] [place], [place] [id number] MCH (RBC) [Entitic mass] 32.9 pg Normal 27.0-33.0 [facility] Comment on above: Performed By: #### L IPD, CBCAD, CMP #### [facility] [address] [place], [place] [id number] MCHC (RBC) [Mass/Vol] 32.8 g/dL Normal 32.0-36.0 [facility] Comment on above: Performed By: #### L IPD, CBCAD, CMP #### [facility] [address] [place], [place] [id number] MCV (RBC) [Entitic vol] 100 fL Normal 80-100 [facility] Comment on above: Performed By: #### L IPD, CBCAD, CMP #### [facility] [address] [place], [place] [id number] Monocytes (Bld) [#/Vol] 0.7 10*3/uL Normal 0.2-0.9 [facility] Comment on above: Performed By: #### L IPD, CBCAD, CMP #### [facility] [address] [place], [place] [id number] Monocytes/100 WBC (Bld) 11.7 % Normal N [facility] Comment on above: Performed By: #### L IPD, CBCAD, CMP #### [facility] [address] [place], [place] [id number] Neutrophils (Bld) [#/Vol] 2.3 10*3/uL Normal 1.5-7.8 [facility] Comment on above: Performed By: #### L IPD, CBCAD, CMP #### [facility] [address] [place], [place] [id number] Neutrophils/100 WBC (Bld) 41.3 % Normal [facility] Comment on above: Performed By: #### L IPD, CBCAD, CMP #### [facility] [address] [place], [place] [id number] Platelet mean volume (Bld) [Entitic vol] 11.40 fL Normal 7.50-12.50 [facility] Comment on above: Performed By: #### L IPD, CBCAD, CMP #### [facility] [address] [place], [place] [id number] Platelets (Bld) [#/Vol] 129 10*3/uL Low 140-400 [facility] Comment on above: Performed By: #### L IPD, CBCAD, CMP #### [facility] [address] [place], [place] [id number] RBC (Bld) [#/Vol] 4.71 10*6/uL Normal 4.20-5.80 [facility] Specialist Comment on above: Performed By: #### L IPD, CBCAD, CMP #### [facility] [address] [place], [place] [id number] RDW-SD 47.8 fL Normal 37.0-50.0 [facility] Comment on above: Performed By: #### L IPD, CBCAD, CMP #### [facility] [address] [place], [place] [id number] WBC (Bld) [#/Vol] 5.7 10*3/uL Normal 3.8-11.0 [facility] Dye Automation Operator Comment on above: Performed By: #### L IPD, CBCAD, CMP #### [facility] [address] [place], [place] [id number] Comprehensive Metabolic Pane [facility] 03-14-2021 Albumin [Mass/Vol] 4.7 g/dL Normal 3.6-5.1 [facility] Dye Automation Operator Comment on above: Performed By: #### L IPD, CBCAD, CMP #### [facility] [address] [place], [place] [id number] Albumin/Globulin [Mass ratio] 2.6 {ratio} High 1.0-2.5 [facility] Comment on above: Performed By: #### L IPD, CBCAD, CMP #### [facility] [address], [place] [id number] ALP [Catalytic activity/Vol] 67 U/L Normal 40-129 [facility] Comment on above: Performed By: #### L IPD, CBCAD, CMP #### [facility] [address], [place] [id number] ALT [Catalytic activity/Vol] 27 U/L Normal 9-46 [facility] Comment on above: Result Comment: 01/29 Female reference range changed. Performed By: #### L IPD, CBCAD, CMP #### [facility] [address], [place] [id number] Anion gap [Moles/Vol] 17 mmol/L Normal 12-20 [facility] Comment on above: Result Comment: Effe ctive 03/06/2019 reference range changed. Performed By: #### L IPD, CBCAD, CMP #### [facility] [address], [place] [id number] AST [Catalytic activity/Vol] 22 U/L Normal 10-40 [facility] Comment on above: Performed By: #### L IPD, CBCAD, CMP #### [facility] [address], [place] [id number] Bilirubin [Mass/Vol] 0.46 mg/dL Normal 0.30-1.[address] [facility] Comment on above: Performed By: #### L IPD, CBCAD, CMP #### [facility] [address], [place] [id number] BUN/CREA 25 Ratio High 6-22 [facility] Comment on above: Performed By: #### L IPD, CBCAD, CMP #### [facility] [address], [place] [id number] Calcium [Mass/Vol] 9.5 mg/dL Normal 8.6-10.2 [facility] Comment on above: Performed By: #### L IPD, CBCAD, CMP #### [facility] [address], [place] [id number] Chloride [Moles/Vol] 103 mmol/L Normal 98-107 [facility] Comment on above: Performed By: #### L IPD, CBCAD, CMP #### [facility] [address], [place] [id number] CO2 [Moles/Vol] 27 mmol/L Normal 20-31 [facility] Comment on above: Performed By: #### L IPD, CBCAD, CMP #### [facility] [address], [place] [id number] Creatinine [Mass/Vol] 1.0 mg/dL Normal 0.7-1.4 [facility] Specialist Comment on above: Performed By: #### L IPD, CBCAD, CMP #### [facility] [address], [place] [id number] eGFRAA 92 mL/min/1.73m2 Normal >60 [facility] Comment on above: Performed By: #### L IPD, CBCAD, CMP #### [facility] [address], [place] [id number] eGFRNAA 76 mL/min/1.73m2 Normal >60 [facility] Comment on above: Performed By: #### L IPD, CBCAD, CMP #### [facility] [address], [place] [id number] Globulin (S) [Mass/Vol] 1.8 g/dL Low 1.9-3.7 [facility] Comment on above: Performed By: #### L IPD, CBCAD, CMP #### [facility] [address], [place] [id number] Glucose [Mass/Vol] 96 mg/dL Normal 65-99 [facility] Comment on above: Result Comment: For FASTING Glucose --- ADA reference ranges: Normal 65-99 mg/dl Prediabetes 100-125 Diabetes >/= 126 Performed By: #### L IPD, CBCAD, CMP #### [facility] [address], [place] [id number] Potassium [Moles/Vol] 4.3 mmol/L Normal 3.5-5.5 [facility] Special[facility] Comment on above: Performed By: #### L IPD, CBCAD, CMP #### [facility] [address], [place] [id number] Protein [Mass/Vol] 6.5 g/dL Normal 6.1-8.1 [facility] Special[facility] Comment on above: Performed By: #### L IPD, CBCAD, CMP #### [facility] [address], [place] [id number] Sodium [Moles/Vol] 143 mmol/L Normal 135-146 [facility] Special[facility] Comment on above: Performed By: #### L IPD, CBCAD, CMP #### [facility] [address], [place] [id number] Urea nitrogen [Mass/Vol] 25 mg/dL Normal 7-25 [facility] Comment on above: Performed By: #### L IPD, CBCAD, CMP #### [facility] [address], [place] [id number] Lipid Panelon 03-14-2021 Cholesterol [Mass/Vol] 162 mg/dL Normal 125-200 [facility] Comment on above: Result Comment: Low risk < 200mg/dL Borderline risk 201-239 mg/dl High risk > or equal to 240 Performed By: #### L IPD, CBCAD, CMP #### [facility] [address], [place] [id number] Cholesterol in HDL [Mass/Vol] 45 mg/dL Normal >40 [facility] Comment on above: Result Comment: High Cardiovascular Risk HDL <40 mg/dL Low Cardiovascular Risk HDL > or equal to 60 mg/dl Performed By: #### L IPD, CBCAD, CMP #### [facility] [address], [place] [id number] Cholesterol in LDL [Mass/Vol] 92 mg/dL Normal [facility] Comment on above: Result Comment: LDL ATP III CLASSIFICATION LDL less than 100 mg/dl Optimal LDL 100-129 mg/dl Near or above optimal LDL 130-159 Borderline high LDL 160-189 High LDL greater than 189 mg/dl Very High Performed By: #### L IPD, CBCAD, CMP #### [facility] [address], [place] [id number] Cholesterol in VLDL [Mass/Vol] 25 mg/dL Normal [employer] Comment on above: Performed By: #### L IPD, CBCAD, CMP #### [facility] [address] [id number] Cholesterol.total/Choles terol in HDL [Mass ratio] 4 {ratio} Normal [facility] Comment on above: Performed By: #### L IPD, CBCAD, CMP #### [facility] [address] [place], [place] [id number] Triglyceride [Mass/Vol] 127 mg/dL Normal 30-150 [facility] [employer] Comment on above: Result Comment: TRIG ATPIII CLASSIFICATIONS TRIG less than 150 mg/dl Normal TRIG 150-199 mg/dl Borderline High TRIG 200-500 mg/dl High TRIG greather than 500 mg/dl Very High Performed By: #### L IPD, CBCAD, CMP #### [facility] [address] [id number] Vital Signs Date Time Vital Sign Value Performing Clinician Facility 09-28-2024 13:33-0400 Body height 185.4 cm Oj Mcgrath DPM Work Phone: [facility] 09-28-2024 13:33-0400 Body mass index (BMI) [Ratio] 27.05 kg/m2 Oj Mcgrath DPM Work Phone: [facility] 09-28-2024 13:33-0400 Body weight 92.99 kg Oj Mcgrath DPM Work Phone: [facility] 09-28-2024 13:33-0400 Respiratory rate 16 /min Oj Mcgrath DPM Work Phone: [facility] 09-11-2024 08:39-0400 Body height 185.4 cm Sekou Dai MD Work Phone: [facility] 09-11-2024 08:39-0400 Body mass index (BMI) [Ratio] 27.13 kg/m2 Sekou Dai MD Work Phone: [facility] 09-11-2024 08:39-0400 Body weight 93.26 kg Sekou Dai MD Work Phone: [facility] 09-11-2024 08:39-0400 Diastolic blood pressure 84 mm[Hg] Sekou Dai MD Work Phone: [facility] 09-11-2024 08:39-0400 Systolic blood pressure 126 mm[Hg] Sekou Dai MD Work Phone: [facility] 08-09-2024 09:58-0400 Body mass index (BMI) [Ratio] 27.18 kg/m2 Farrukhsonia Ng DO Work Phone: [facility] 08-09-2024 09:58-0400 Body weight 93.44 kg Farrukh Ng DO Work Phone: [facility] 08-09-2024 09:58-0400 Heart rate 65 /min Farrukh Ng DO Work Phone: [facility] 08-09-2024 09:58-0400 SaO2% (BldA) [Mass fraction] 97 % Farrukh Ng DO Work Phone: [facility] 07-05-2024 09:40-0400 Diastolic blood pressure 71 mm[Hg] Farrukh Ng DO Work Phone: [facility] 07-05-2024 09:40-0400 Heart rate 64 /min Farrukh Ng DO Work Phone: [facility] 07-05-2024 09:40-0400 Respiratory rate 20 /min Farrukh Ng DO Work Phone: [facility] 07-05-2024 09:40-0400 SaO2% (BldA) [Mass fraction] 96 % Farrukh Ng DO Work Phone: [facility] 07-05-2024 09:40-0400 Systolic blood pressure 110 mm[Hg] Farrukh Ng DO Work Phone: [facility] 07-05-2024 08:26-0400 Body height 185.42 cm Farrukh Ng DO Work Phone: [facility] 07-05-2024 08:26-0400 Body weight 102.96 kg Farrukh Ng DO Work Phone: [facility] 05-15-2024 08:34-0400 Body height 185.4 cm Kwaku Fernandeznagel TRACK HOE OPERATOR Work Phone: [facility] 05-15-2024 08:34-0400 Body mass index (BMI) [Ratio] 26.95 kg/m2 Kwaku Willisnagel TRACK HOE OPERATOR Work Phone: [facility] 05-15-2024 08:34-0400 Body weight 92.67 kg Kwaku Willisnagel TRACK HOE OPERATOR Work Phone: [facility] 05-15-2024 08:34-0400 Diastolic blood pressure 63 mm[Hg] Kwaku Willisnagel TRACK HOE OPERATOR Work Phone: [facility] 05-15-2024 08:34-0400 Systolic blood pressure 111 mm[Hg] Kwaku Willisnagel TRACK HOE OPERATOR Work Phone: [facility] 05-11-2024 11:54-0400 Body height 185.4 cm Oj Mcgrath DPM Work Phone: [facility] 05-11-2024 11:54-0400 Body mass index (BMI) [Ratio] 27.05 kg/m2 Oj Mcgrath DPM Work Phone: [facility] 05-11-2024 11:54-0400 Body weight 92.99 kg Oj Mcgrath DPM Work Phone: [facility] 05-11-2024 11:54-0400 Respiratory rate 16 /min Oj Mcgrath DPM Work Phone: [facility] 04-11-2024 14:15-0500 Body height 185.4 cm Mohsen Mansfield TRACK HOE OPERATOR Work Phone: [facility] 04-11-2024 14:15-0500 Body mass index (BMI) [Ratio] 27.05 kg/m2 Mohsen Mansfield TRACK HOE OPERATOR Work Phone: [facility] 04-11-2024 14:15-0500 Body weight 92.99 kg Mohsen Mansfield TRACK HOE OPERATOR Work Phone: [facility] 04-11-2024 14:15-0500 Diastolic blood pressure 70 mm[Hg] Mohsen Mansfield TRACK HOE OPERATOR Work Phone: [facility] 04-11-2024 14:15-0500 Heart rate 86 /min Mohsen Mansfield TRACK HOE OPERATOR Work Phone: [facility] 04-11-2024 14:15-0500 SaO2% (BldA) [Mass fraction] 96 % Mohsen Mansfield TRACK HOE OPERATOR Work Phone: [facility] 04-11-2024 14:15-0500 Systolic blood pressure 106 mm[Hg] Mohsen Mansfield TRACK HOE OPERATOR Work Phone: [facility] 03-10-2024 09:37-0500 Body height 185.4 cm Leopoldo Biedenbach DO Work Phone: [facility] 03-10-2024 09:37-0500 Body mass index (BMI) [Ratio] 28.37 kg/m2 Leopoldo Biedenbach DO Work Phone: [facility] 03-10-2024 09:37-0500 Body weight 97.52 kg Leopoldo Biedenbach DO Work Phone: [facility] 03-02-2024 11:45-0500 Body height 185.4 cm Oj Mcgrath DPM Work Phone: [facility] 03-02-2024 11:45-0500 Body mass index (BMI) [Ratio] 28.63 kg/m2 Oj Mcgrath DPM Work Phone: [facility] 03-02-2024 11:45-0500 Body weight 98.43 kg Oj Mcgrath DPM Work Phone: [facility] 03-02-2024 11:45-0500 Respiratory rate 18 /min Oj Mcgrath DPM Work Phone: [facility] 02-14-2024 09:07-0500 Body height 185.4 cm Sekou Dai MD Work Phone: [facility] 02-14-2024 09:07-0500 Body mass index (BMI) [Ratio] 28.63 kg/m2 Sekou Dai MD Work Phone: [facility] 02-14-2024 09:07-0500 Body weight 98.43 kg Sekou Dai MD Work Phone: [facility] 02-14-2024 09:07-0500 Diastolic blood pressure 78 mm[Hg] Sekou Dai MD Work Phone: [facility] 02-14-2024 09:07-0500 Systolic blood pressure 124 mm[Hg] Sekou Dai MD Work Phone: [facility] 12-23-2023 11:57-0400 Body height 185.4 cm Oj Mcgrath DPM Work Phone: [facility] 12-23-2023 11:57-0400 Body mass index (BMI) [Ratio] 29.29 kg/m2 Oj Mcgrath DPM Work Phone: [facility] 12-23-2023 11:57-0400 Body weight 100.7 kg Oj Mcgrath DPM Work Phone: [facility] 12-23-2023 11:57-0400 Diastolic blood pressure 79 mm[Hg] Oj Mcgrath DPM Work Phone: [facility] 12-23-2023 11:57-0400 Heart rate 82 /min Oj Mcgrath DPM Work Phone: [facility] 12-23-2023 11:57-0400 Systolic blood pressure 126 mm[Hg] Oj Mcgrath DPM Work Phone: [facility] 12-01-2023 10:43-0400 Body height 185.4 cm Farrukh Ng DO Work Phone: [facility] 12-01-2023 10:43-0400 Body mass index (BMI) [Ratio] 29.29 kg/m2 Farrukh Ng DO Work Phone: [facility] 12-01-2023 10:43-0400 Body weight 100.7 kg Farrukh Ng DO Work Phone: [facility] 12-01-2023 10:43-0400 Diastolic blood pressure 70 mm[Hg] Farrukh Ng DO Work Phone: [facility] 12-01-2023 10:43-0400 Heart rate 71 /min Farrukh Ng DO Work Phone: [facility] 12-01-2023 10:43-0400 SaO2% (BldA) [Mass fraction] 96 % Farrukh Ng DO Work Phone: [facility] 12-01-2023 10:43-0400 Systolic blood pressure 110 mm[Hg] Farrukh Ng DO Work Phone: [facility] 11-08-2023 09:02-0400 Body height 185.4 cm Sekou Dai MD Work Phone: [facility] 11-08-2023 09:02-0400 Body mass index (BMI) [Ratio] 29.69 kg/m2 Sekou Dai MD Work Phone: [facility] 11-08-2023 09:02-0400 Body weight 102.06 kg Sekou Dai MD Work Phone: [facility] 11-08-2023 09:02-0400 Diastolic blood pressure 84 mm[Hg] Sekou Dai MD Work Phone: [facility] 11-08-2023 09:02-0400 Systolic blood pressure 136 mm[Hg] Sekou Dai MD Work Phone: [facility] 04-30-2022 14:48-0500 Body temperature 97.4 [degF] DO Farrukhsonia Ng Work Phone: [facility] 04-30-2022 14:48-0500 Diastolic blood pressure 73 mm[Hg] DO Farrukhsonia Ng Work Phone: [facility] 04-30-2022 14:48-0500 Heart rate 81 /min DO Farrukh Tarik Work Phone: [facility] 04-30-2022 14:48-0500 Respiratory rate 17 /min DO Farrukh Tarik Work Phone: [facility] 04-30-2022 14:48-0500 SaO2% (BldA) [Mass fraction] 97 % DO Farrukh Ng Work Phone: [facility] 04-30-2022 14:48-0500 Systolic blood pressure 123 mm[Hg] DO Farrukh Tarik Work Phone: [facility] 04-27-2022 14:59-0500 Body height 182.88 cm DO Farrukh Ng Work Phone: [facility] 04-27-2022 09:00-0500 Body weight 101.6 kg DO Farrukh Ng Work Phone: [facility] 04-15-2022 07:30-0500 Body temperature 97.5 [degF] DO Farrukh Ng Work Phone: [facility] 04-15-2022 07:30-0500 Diastolic blood pressure 84 mm[Hg] DO Farrukh Ng Work Phone: [facility] 04-15-2022 07:30-0500 Heart rate 92 /min DO Farrukh Tarik Work Phone: [facility] 04-15-2022 07:30-0500 Respiratory rate 16 /min DO Farrukh Tarik Work Phone: [facility] 04-15-2022 07:30-0500 SaO2% (BldA) [Mass fraction] 95 % DO Farrukh Tarik Work Phone: [facility] 04-15-2022 07:30-0500 Systolic blood pressure 120 mm[Hg] DO Farrukh Tarik Work Phone: [facility] 04-13-2022 14:45-0500 Body weight 101.8 kg DO Farrukh Ng Work Phone: [facility] 04-09-2022 14:48-0500 Body height 185.42 cm DO Farrukh Ng Work Phone: [facility] 09-27-2021 10:35-0400 Body height 185.42 cm Marisela Warner Other [employer] [facility] [employer] Other 09-27-2021 10:35-0400 Body mass index (BMI) [Ratio] 30.61 kg/m2 Marisela Warner Other [employer] [facility] [employer] Other 09-27-2021 10:35-0400 Body temperature 98.4 [degF] Marisela Warner Other [employer] [facility] [employer] Other 09-27-2021 10:35-0400 Body weight 105.24 kg Marisela Warner Other [employer] [facility] [employer] Other 09-27-2021 10:35-0400 SaO2% (BldA) [Mass fraction] 96 % Marisela Warner Other [employer] [facility] [employer] Other NEGATED: Highlighted row BMI (Body Mass Index) [facility] NEGATED: Highlighted row Body Temperature [facility] NEGATED: Highlighted row BP Diastolic [facility] NEGATED: Highlighted row BP Systolic [facility] NEGATED: Highlighted row Height [facility] NEGATED: Highlighted row Pulse (Heart Rate) [facility] NEGATED: Highlighted row Pulse Oximetry [facility] NEGATED: Highlighted row Respiratory Rate [facility] NEGATED: Highlighted row Weight [facility] Encounters Encounter Date Encounter Type Care Provider Facility Start: 11-09-2024 End: 11-09-2024 Bamboo flowsheet Marquez Brink SYSTEM SAFETY MANAGER [facility] Start: 11-09-2024 End: 11-09-2024 Bamboo flowsheet Marquez Brink SYSTEM SAFETY MANAGER [facility] Start: 11-09-2024 End: 11-09-2024 ambulatory Marquez Brink SYSTEM SAFETY MANAGER [facility] Comment on above: 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) Start: 11-07-2024 End: 11-07-2024 Bamboo flowsheet Marquez Brink SYSTEM SAFETY MANAGER [facility] Start: 11-07-2024 End: 11-07-2024 Bamboo flowsheet Marquez Brink SYSTEM SAFETY MANAGER [facility] Start: 11-07-2024 End: 11-07-2024 ambulatory Marquez Brink SYSTEM SAFETY MANAGER [facility] Comment on above: 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) Start: 11-03-2024 End: 11-03-2024 ambulatory Marquez Brink SYSTEM SAFETY MANAGER [facility] Comment on above: 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) Start: 11-02-2024 End: 11-03-2024 ambulatory Marquez Brink SYSTEM SAFETY MANAGER [facility] Comment on above: 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) Start: 11-02-2024 End: 11-02-2024 Bamboo flowsheet Marquez Brink SYSTEM SAFETY MANAGER [facility] Start: 11-02-2024 End: 11-02-2024 Bamboo flowsheet Marquez Brink SYSTEM SAFETY MANAGER [facility] Start: 11-01-2024 ambulatory Farrukh Ng Facility :[facility] Start: 10-26-2024 End: 10-26-2024 Bamboo flowsheet Marquez Brink SYSTEM SAFETY MANAGER [facility] Start: 10-26-2024 End: 10-26-2024 Bamboo flowsheet Marquez Brink SYSTEM SAFETY MANAGER [facility] Start: 10-26-2024 End: 10-26-2024 ambulatory Marquez Brink SYSTEM SAFETY MANAGER [facility] Comment on above: 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) Start: 10-24-2024 End: 10-24-2024 ambulatory Marquez Brink SYSTEM SAFETY MANAGER [facility] Comment on above: 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) Start: 10-20-2024 End: 10-20-2024 Bamboo flowsheet Marquez Brink SYSTEM SAFETY MANAGER [facility] Start: 10-20-2024 End: 10-20-2024 Bamboo flowsheet Marquez Brink SYSTEM SAFETY MANAGER [facility] Start: 10-20-2024 End: 10-20-2024 ambulatory Marquez Brink SYSTEM SAFETY MANAGER [facility] Comment on above: 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) Start: 10-17-2024 End: 10-17-2024 Bamboo flowsheet Marquez Brink SYSTEM SAFETY MANAGER [facility] Start: 10-17-2024 End: 10-17-2024 Bamboo flowsheet Marquez Brink SYSTEM SAFETY MANAGER [facility] Start: 10-17-2024 End: 10-18-2024 ambulatory Marquez Brink SYSTEM SAFETY MANAGER [facility] Comment on above: 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) Start: 10-11-2024 End: 10-11-2024 ambulatory Óscar Shukla SYSTEM SAFETY MANAGER [facility] Comment on above: 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) Start: 10-09-2024 End: 10-09-2024 Bamboo flowsheet Marquez Brink SYSTEM SAFETY MANAGER [facility] Start: 10-09-2024 End: 10-09-2024 Bamboo flowsheet Marquez Brink SYSTEM SAFETY MANAGER [facility] Start: 10-09-2024 End: 10-09-2024 ambulatory Marquez Brink SYSTEM SAFETY MANAGER [facility] Comment on above: 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) Start: 10-06-2024 End: 10-06-2024 Bamboo flowsheet Óscar Shukla SYSTEM SAFETY MANAGER [facility] Start: 10-06-2024 End: 10-06-2024 Bamboo flowsheet Óscar Shukla SYSTEM SAFETY MANAGER [facility] Start: 10-06-2024 End: 10-06-2024 ambulatory Óscar Shukla SYSTEM SAFETY MANAGER [facility] Comment on above: 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) Start: 10-02-2024 End: 10-02-2024 Bamboo flowsheet Óscar Shukla SYSTEM SAFETY MANAGER [facility] Start: 10-02-2024 End: 10-02-2024 Bamboo flowsheet Óscar Shukla SYSTEM SAFETY MANAGER [facility] Start: 10-02-2024 End: 10-02-2024 ambulatory Óscar Shukla SYSTEM SAFETY MANAGER [facility] Comment on above: 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) Start: 09-29-2024 End: 09-29-2024 ambulatory Marquez Dawkins SYSTEM SAFETY MANAGER [facility] Comment on above: 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) Start: 09-28-2024 End: 09-28-2024 Bamboo flowsheet Oj Mcgrath DPM Work Phone: [facility] Start: 09-28-2024 End: 09-28-2024 Bamboo flowsheet Oj Mcgrath DPM Work Phone: [facility] Start: 09-28-2024 End: 09-28-2024 ambulatory OJ MCGRATH Not Available Start: 09-28-2024 End: 09-28-2024 Patient encounter procedure Oj Mcgrath DPM Work Phone: [facility] Comment on above: Pain due to onychomy cosis of toenails of both feet (Primary Dx); Venous insufficiency of both lower extremities Start: 09-27-2024 End: 09-27-2024 Bamboo flowsheet Rosibel Arellano PT [facility] Start: 09-27-2024 End: 09-27-2024 Bamboo flowsheet Rosibel Arellano PT [facility] Start: 09-27-2024 End: 09-27-2024 ambulatory Rosibel Arellano PT [facility] Comment on above: 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) Start: 09-25-2024 End: 09-25-2024 Bamboo flowsheet Óscar Shukla SYSTEM SAFETY MANAGER [facility] Start: 09-25-2024 End: 09-25-2024 Bamboo flowsheet Óscar Shukla SYSTEM SAFETY MANAGER [facility] Start: 09-25-2024 End: 09-25-2024 ambulatory Óscar Shukla SYSTEM SAFETY MANAGER [facility] Comment on above: 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) Start: 09-22-2024 End: 09-22-2024 Bamboo flowsheet Rosibel Arellano PT [facility] Start: 09-22-2024 End: 09-22-2024 Bamboo flowsheet Rosibel Arellano PT [facility] Start: 09-22-2024 End: 09-22-2024 ambulatory Rosibel Arellano PT [facility] Comment on above: 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) Start: 09-11-2024 End: 09-11-2024 Bamboo flowsheet Sekou Dai MD Work Phone: [facility] Start: 09-11-2024 End: 09-11-2024 Bamboo flowsheet Sekou Dai MD Work Phone: [facility] Start: 09-11-2024 End: 09-13-2024 Telephone encounter Rosibel Arellano PT [facility] Comment on above: PT Initial Eval (Nee d to request if Home Health is treating.); Call back (Was told no Home health is being done.) Start: 09-11-2024 End: 09-11-2024 Office outpatient visit 25 minutes Sekou Dai MD Work Phone: [facility] Comment on above: 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) Start: 09-11-2024 End: 09-11-2024 ambulatory SEKOU Marquis KAITLIN Not Available Start: 08-09-2024 End: 08-09-2024 Office outpatient visit 25 minutes Farrukh Ng DO Work Phone: [facility] Comment on above: Medicare annual well ness visit, subsequent (Primary Dx); Advance care planning; Parkinsonism due to drug (CMS/HCC); Venous insufficiency of both lower extremities; Primary hypertension (CMS/HCC); Tremor; 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); Frequent falls; Mixed hyperlipidemia (CMS/HCC); Unspecified dementia, unspecified severity, without behavioral disturbance, psychotic disturbance, mood disturbance, and anxiety (CMS/HCC); Chronic constipation Start: 08-09-2024 End: 08-09-2024 Patient encounter procedure Farrukh gN DO Work Phone: [facility] Work Phone: Start: 08-09-2024 End: 08-09-2024 ambulatory FARRUKH NG Not Available Start: 07-20-2024 End: 07-20-2024 ambulatory OJ MCGRATH Not Available Start: 07-05-2024 Non-patient / Non-visit Jassi Ng DO Work Phone: [facility] Work Phone: Start: 07-05-2024 End: 07-05-2024 Admission to same day surgery center Farrukh Ng DO Work Phone: [facility] Work Phone: Start: 07-05-2024 End: 07-05-2024 ambulatory Farrukh Ng DO Work Phone: [facility] Work Phone: Start: 06-02-2024 End: 06-02-2024 ambulatory KWAKU Antonio GLOVER Not Available Start: 05-15-2024 End: 05-15-2024 ambulatory KWAKU C WILLISNAYESENIA Not Available Start: 05-15-2024 End: 05-15-2024 Office outpatient visit 25 minutes Kwaku Glover TRACK HOE OPERATOR Work Phone: [facility] Comment on above: MCI (mild cognitive impairment) (Primary Dx); Tremor; Parkinsonism due to drug (CMS/HCC) Start: 05-11-2024 End: 05-11-2024 Bamboo flowsheet Oj Mcgrath DPM Work Phone: [facility] Start: 05-11-2024 End: 05-11-2024 Bamboo flowsheet Oj Mcgrath DPM Work Phone: [facility] Start: 05-11-2024 End: 05-11-2024 ambulatory OJ MCGRATH Not Available Start: 05-11-2024 End: 05-11-2024 Patient encounter procedure Oj Mcgrath DPM Work Phone: [facility] Comment on above: Pain due to onychomy cosis of toenails of both feet (Primary Dx); Venous insufficiency of both lower extremities Start: 05-10-2024 Registered Recurring Farrukh shafer DO Work Phone: [facility] Start: 04-11-2024 End: 04-11-2024 Office outpatient visit 25 minutes Mohsen Mansfield TRACK HOE OPERATOR Work Phone: [facility] IM Comment on above: Tremor (Primary Dx); Major depressive disorder, recurrent, severe with psychotic symptoms (HCC) (CMS/HCC); Parkinsonism, unspecified Parkinsonism type (CMS/HCC); Bipolar affective disorder, remission status unspecified (CMS/HCC); Frequent falls; Primary hypertension (CMS/HCC); Mixed hyperlipidemia (CMS/HCC); History of colon polyps Start: 04-11-2024 End: 04-11-2024 ambulatory MOHSEN MANSFIELD Not Available Start: 03-10-2024 End: 03-10-2024 Bamboo flowsheet Leopoldo Blum DO Work Phone: [facility] Start: 03-10-2024 End: 03-10-2024 Bamboo flowsheet Leopoldo Blum DO Work Phone: [facility] [place] Start: 03-10-2024 End: 03-10-2024 Office outpatient visit 15 minutes Leopoldo Blum DO Work Phone: [facility] [place] Comment on above: History of mastoidec phyllis (Primary Dx); Impacted cerumen of left ear; Sensorineural hearing loss (SNHL), unspecified laterality Start: 03-10-2024 End: 03-10-2024 ambulatory LEOPOLDO BLUM Not Available Start: 03-02-2024 End: 03-02-2024 Bamboo flowsheet Oj Mcgrath DPM Work Phone: [facility] Start: 03-02-2024 End: 03-02-2024 Bamboo flowsheet Oj Mcgrath DPM Work Phone: [facility] Start: 03-02-2024 End: 03-02-2024 ambulatory OJ MCGRATH Not Available Start: 03-02-2024 End: 03-02-2024 Patient encounter procedure Oj Mcgrath DPM Work Phone: [facility] Comment on above: Pain due to onychomy cosis of toenails of both feet (Primary Dx); Venous insufficiency of both lower extremities Start: 02-14-2024 End: 02-14-2024 Bamboo flowsheet Sekou Dai MD Work Phone: [facility] NEUROLOGY Start: 02-14-2024 End: 02-14-2024 Bamboo flowsheet Sekou Dai MD Work Phone: [facility] Start: 02-14-2024 End: 02-14-2024 Office outpatient visit 25 minutes Sekou Dai MD Work Phone: [facility] NEUR Comment on above: MCI (mild cognitive impairment) Start: 02-14-2024 End: 02-14-2024 ambulatory SEKOU DAI Not Available Start: 12-23-2023 End: 12-23-2023 Bamboo flowsheet Oj Mcgrath DPM Work Phone: [facility] Start: 12-23-2023 End: 12-23-2023 Bamboo flowsheet Oj Lyric Alcides DPM Work Phone: [facility] Start: 12-23-2023 End: 12-23-2023 Patient encounter procedure Oj Mcgrath DPM Work Phone: [facility] Comment on above: Pain due to onychomy cosis of toenails of both feet (Primary Dx); Venous insufficiency of both lower extremities Start: 12-23-2023 End: 12-23-2023 ambulatory OJ MCGRATH Not Available Start: 12-01-2023 End: 12-01-2023 Bamboo flowsheet Farrukh Ng DO Work Phone: [facility] Start: 12-01-2023 End: 12-01-2023 Bamboo flowsheet Farrukh Ng DO Work Phone: [facility] Start: 12-01-2023 End: 12-01-2023 Office outpatient visit 25 minutes Farrukh Ng DO Work Phone: [facility] Comment on above: Severe recurrent umer or depression with psychotic features (HCC) (CMS/HCC) (Primary Dx); MCI (mild cognitive impairment); Parkinsonism due to drug (CMS/HCC); Primary hypertension (CMS/HCC); Venous insufficiency of both lower extremities; Need for immunization against influenza; Blood in stool Start: 12-01-2023 End: 12-01-2023 ambulatory FARRUKH NG Not Available Start: 11-08-2023 End: 11-08-2023 Bamboo flowsheet Sekou Dai MD Work Phone: [facility] Start: 11-08-2023 End: 11-08-2023 Bamboo flowsheet Sekou Dai MD Work Phone: [facility] Start: 11-08-2023 End: 11-08-2023 Office outpatient visit 25 minutes Sekou Dai MD Work Phone: [facility] Comment on above: Primary parkinsonism (CMS/HCC); Tremor Start: 06-02-2023 End: 06-02-2023 ambulatory DO Farrukh Ng Work Phone: [facility] Work Phone: Start: 06-02-2023 End: 06-02-2023 Discharged Recurring DO Farrukh Ng Work Phone: [facility] [facility] Start: 04-01-2023 Refill Yanci Ramos NP Work Phone: [facility] Comment on above: Parkinsonism, unspec ified Parkinsonism type Start: 04-24-2022 End: 04-30-2022 Evaluation and management of inpatient DO Farrukh Ng Work Phone: [facility] Work Phone: Start: 04-08-2022 End: 04-15-2022 Evaluation and management of inpatient DO Farrukh Ng Work Phone: [facility] Work Phone: Start: 12-20-2021 End: 12-20-[address] FARRUKH NG Facility: Start: 09-27-2021 End: 09-27-2021 ambulatory Marisela Warner Other [facility] Other Start: 09-27-2021 Office outpatient vi sit 25 minutes Marisela Warner [facility] [place] Start: 07-27-2008 End: 07-27-2008 Admission to day surgery [facility] Start: 02-08-2008 Patient encounter procedure [facility] Start: 04-14-2001 End: 04-14-2001 Patient encounter procedure [facility] Start: 12-22-2000 End: 12-22-2000 Emergency department patient visit [facility] Start: 03-24-2000 End: 03-24-2000 Patient encounter procedure [facility] Start: 02-11-2000 End: 02-29-2000 Discharged Recurring [facility] Start: 01-26-2000 End: 01-26-2000 Emergency department patient visit [facility] Start: 09-11-1999 End: 09-11-1999 Admission to day surgery [facility] Start: 06-05-1999 End: 06-05-1999 Evaluation and management of inpatient [facility] Start: 05-16-1999 End: 05-16-1999 Admission to day surgery [facility] Start: 03-28-1999 End: 03-28-1999 Admission to day surgery [facility] Start: 03-25-1999 End: 03-27-1999 Evaluation and management of inpatient [facility] Start: 01-20-1999 End: 01-20-1999 Patient encounter procedure [facility] Start: 01-02-1999 End: 01-02-1999 Patient encounter procedure [facility] Start: 01-31-1995 End: 01-31-1995 Emergency department patient visit [facility] Start: 01-29-1995 End: 01-29-1995 Emergency department patient visit [facility] Start: 08-07-1994 End: 08-07-1994 Patient encounter procedure [facility] Start: 12-30-1993 End: 01-29-1994 Discharged Recurring [facility] Start: 11-29-1993 End: 12-26-1993 Discharged Recurring [facility] Start: 11-10-1993 End: 11-29-1993 Discharged Recurring [facility] Start: 10-17-1993 End: 10-17-1993 Admission to day surgery [facility] Start: 09-03-1993 End: 09-29-1993 Discharged Recurring [facility] Start: 08-21-1993 End: 08-21-1993 Patient encounter procedure [facility] Start: 01-07-1990 End: 01-08-1990 Evaluation and management of inpatient [facility] Procedures Date Procedure Procedure Detail Performing Clinician Start: 07-05-2024 End: 07-05-2024 Colonoscopy Farrukh Ng DO Work Phone: Start: 08-04-2019 Colonoscopy Yanci Ramos TRACK HOE OPERATOR Work Phone: H/O: surgery History of mastoidectomy Jaky Blum DO Work Phone: Plan of Treatment Date Care Activity Detail Author Start: 07-05-2034 Screening for malign ant neoplasm of colon [facility] Start: 08-03-2029 Screening for malign ant neoplasm of colon [facility] Start: 08-09-2025 Medicare Annual Well ness (AWV) Medicare Annual Wellness (AWV) [facility] Start: 03-09-2025 End: 03-09-2025 Patient encounter procedure [facility] Start: 02-14-2025 End: 02-14-2025 Patient encounter procedure [facility] Start: 12-18-2024 End: 12-18-2024 Patient encounter procedure [facility] Start: 12-14-2024 End: 12-14-2024 Patient encounter procedure 12/14/2024 1:40 PM EDT Procedure Visit [facility] [address] [place] [address] Oj Mcgrath, DP [address] [facility] [address] [place] [address] [facility] Start: 11-23-2024 End: 11-23-2024 ambulatory 11/23/2024 2:30 PM EDT Treatment [facility] [place] [facility] [address] [place] [address] Marquez Dawkins PTA [facility] [place] [facility] Start: 11-21-2024 End: 11-21-2024 ambulatory 11/21/2024 2:30 PM EDT Treatment [facility] [place] [facility] [address] [place] [address] Rosibel Arellano, PT [facility] [place] [facility] Start: 11-17-2024 End: 11-17-2024 ambulatory 11/17/2024 1:00 PM EDT Treatment [facility] [place] [facility] [address] [place] [address] Marquez Dawkins PTA [facility] [place] [facility] Start: 11-14-2024 End: 11-14-2024 ambulatory 11/14/2024 1:30 PM EDT Treatment [facility] [place] [facility] [address] [place] [address] Marquez Dawkins PTA [facility] [place] [facility] Start: 11-09-2024 End: 11-09-2024 ambulatory [facility] [place] [facility] Comment on above: Arrived Start: 11-07-2024 End: 11-07-2024 ambulatory 11/07/2024 2:00 PM EDT Treatment [facility] [place] [facility] [address] [place] [address] Marquez Dawkins PTA [facility] [place] [facility] Start: 11-03-2024 End: 11-03-2024 ambulatory 11/03/2024 1:00 PM EDT Treatment [facility] [place] [facility] [address] [place] [address] Marquez Dawkins PTA [facility] [place] [facility] Start: 11-01-2024 End: 11-01-2024 ambulatory 11/01/2024 2:30 PM EDT Treatment [facility] [place] [facility] [address] [place] [address] Marquez Dawkins PTA [facility] [place] [facility] Start: 10-30-2024 Influenza vaccination Influenza Vacc ine (#1) [facility] Start: 10-26-2024 End: 10-26-2024 ambulatory 10/26/2024 1:30 PM EDT Treatment [facility] [place] [facility] [address] [place] [address] Marquez Dawkins PTA [facility] [place] [facility] Start: 10-26-2024 End: 10-26-2024 ambulatory 10/26/2024 9:30 AM EDT Treatment [facility] [place] [facility] [address] [place] [address] Marquez Dawkins PTA [facility] [place] [facility] Start: 10-24-2024 End: 10-24-2024 ambulatory 10/24/2024 1:30 PM EDT Treatment [facility] [place] [facility] [address] [place] [address] Marquez Dawkins PTA [facility] [place] [facility] Start: 10-24-2024 End: 10-24-2024 ambulatory 10/24/2024 10:30 AM EDT Treatment [facility] [place] [facility] [address] [place] [address] Rosibel Arellano, PT [facility] [place] [facility] Start: 10-20-2024 End: 10-20-2024 ambulatory [facility] [place] [facility] Comment on above: Arrived Start: 10-17-2024 End: 10-17-2024 ambulatory 10/17/2024 1:30 PM EDT Treatment [facility] [place] [facility] [address] [place] [address] Marquez Dawkins PTA [facility] [place] [facility] Start: 10-17-2024 End: 10-17-2024 ambulatory 10/17/2024 8:30 AM EDT Treatment [facility] [place] [facility] [address] [place] [address] Marquez Dawkins PTA [facility] [place] [facility] Start: 10-11-2024 End: 10-11-2024 ambulatory 10/11/2024 1:30 PM EDT Treatment [facility] [place] [facility] [address] [facility] [address] [place] [address] Óscar Shukla PTA [facility] [place] [facility] Start: 10-09-2024 End: 10-09-2024 ambulatory [facility] [place] [facility] Comment on above: 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) Start: 10-06-2024 End: 10-06-2024 ambulatory [facility] Start: 10-04-2024 End: 10-04-2024 ambulatory [facility] Start: 10-02-2024 End: 10-02-2024 ambulatory [facility] Comment on above: Arrived Start: 09-29-2024 End: 09-29-2024 ambulatory [facility] Start: 09-28-2024 End: 09-28-2024 Patient encounter procedure 09/28/2024 1:20 PM EDT Procedure Visit [facility] [address] [facility] [address] [place] [address] Oj Mcgrath, DPAdrian [address] [facility] [address] [place] [address] [facility] Start: 09-27-2024 End: 09-27-2024 ambulatory [facility] Start: 09-25-2024 End: 09-25-2024 ambulatory [facility] Comment on above: 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) Start: 09-22-2024 End: 09-22-2024 ambulatory [facility] Comment on above: 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) Start: 09-11-2024 End: 09-11-2024 Patient encounter procedure [facility] Comment on above: Arrived Start: 08-11-2024 End: 08-11-2024 Patient encounter procedure 08/11/2024 8:15 AM EDT Office Visit [facility] [address] [place] [address] Farrukh Ng DO [address] [place] [address] [facility] Start: 07-20-2024 End: 07-20-2024 Patient encounter procedure 07/20/2024 11:50 AM EDT Procedure Visit [facility] [address] [facility] [address] [place] [address] Oj Mcgrath, DPAdrian [address] [facility] [address] [place] [address] [facility] Start: 07-09-2024 End: 10-09-2024 Comprehensive metabolic 2000 panel - Serum or Plasma Comprehensive metabolic panel Lab Routine Primary hypertension (CMS/HCC) Expected: 07/09/2024, Expires: 10/09/2024 [facility] Work Phone: Comment on above: Expected: 07/09/2024 , Expires: 10/09/2024 Start: 07-09-2024 End: 10-09-2024 Microalbumin/Creatinine panel in random Urine Microalbumin / creatinine urine ratio Lab Routine Primary hypertension (CMS/HCC) Expected: 07/09/2024, Expires: 10/09/2024 [facility] Comment on above: Expected: 07/09/2024 , Expires: 10/09/2024 Start: 07-05-2024 [facility] Start: 06-10-2024 Medicare Annual Well ness (AWV) Medicare Annual Wellness (AWV) [facility] Start: 05-15-2024 End: 05-15-2025 MR Brain WO contrast MR brain wo contrast Imaging Routine MCI (mild cognitive impairment) Tremor Expected: 05/15/2024, Expires: 05/15/2025 [facility] Work Phone: Comment on above: Expected: 05/15/2024 , Expires: 05/15/2025 Start: 05-15-2024 End: 05-15-2024 Patient encounter procedure 05/15/2024 8:30 AM EDT Office Visit [facility] [address] [place] [address] Kwaku Glover, TRACK HOE OPERATOR [address], [facility] [address] [place] [address] [facility] Start: 05-11-2024 End: 05-11-2024 Patient encounter procedure 05/11/2024 11:40 AM EDT Procedure Visit [facility] [address] [facility] [address] [place] [address] Oj Mcgrath, DPM [address] [facility] [address] [place] [address] [facility] Start: 04-11-2024 End: 04-11-2024 Patient encounter procedure 04/11/2024 2:15 PM EST Office Visit [facility] [address] [place] [address] Farrukh Ng DO [address] [place] [address] [facility] Start: 04-05-2024 End: 04-05-2024 Patient encounter procedure 04/05/2024 9:30 AM EST Office Visit [facility] [address] [place] [address] Farrukh Ng, DO [address] [place] [address] [facility] Start: 04-04-2024 End: 04-04-2024 Patient encounter procedure 04/04/2024 8:45 AM EST Office Visit [facility] [address] [place] [phone] TarikFarrukh, DO [address] [place] [address] [facility] Start: 03-10-2024 End: 03-10-2024 Patient encounter procedure [facility] Comment on above: Arrived Start: 03-02-2024 End: 05-31-2024 CBC panel - Blood by Automated count CBC Lab Routine MCI (mild cognitive impairment) 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) Parkinsonism due to drug (CMS/HCC) Primary hypertension (CMS/HCC) Venous insufficiency of both lower extremities Need for immunization against influenza Blood in stool Expected: 03/02/2024 (Approximate), Expires: 05/31/2024 [facility] Work Phone: Comment on above: Expected: 03/02/2024 (Approximate), Expires: 05/31/2024 Start: 03-02-2024 End: 11-30-2024 Comprehensive metabolic 2000 panel - Serum or Plasma Comprehensive metabolic panel Lab Routine MCI (mild cognitive impairment) 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) Parkinsonism due to drug (CMS/HCC) Primary hypertension (CMS/HCC) Venous insufficiency of both lower extremities Need for immunization against influenza Blood in stool Expected: 03/02/2024 (Approximate), Expires: 11/30/2024 [facility] Comment on above: Expected: 03/02/2024 (Approximate), Expires: 11/30/2024 Start: 03-02-2024 End: 03-02-2024 Patient encounter procedure 03/02/2024 11:40 AM EST Procedure Visit [facility] [address] [place] [address] Oj Mcgrath, RICKIE [address] [facility] [address] [place] [address] [facility] Start: 02-14-2024 End: 02-14-2024 Patient encounter procedure [facility] Comment on above: Arrived Start: 12-23-2023 End: 12-23-2023 Patient encounter procedure [facility] Comment on above: Pain due to onychomy cosis of toenails of both feet (Primary Dx); Venous insufficiency of both lower extremities Start: 12-01-2023 End: 12-01-2023 Patient encounter procedure [facility] Comment on above: Arrived Start: 11-08-2023 End: 11-08-2023 Patient encounter procedure 11/08/2023 9:00 AM EDT Office Visit [facility] [address] [facility] [address] [place] [phone] Sekou Dai MD [address] [facility] [address] [id number] Arrived [facility] Comment on above: Arrived Start: 10-31-2023 Influenza vaccination Influenza Vacc ine (#1) [facility] Start: 10-06-2023 Medicare Annual Well ness (AWV) Medicare Annual Wellness (AWV) [facility] Start: 06-11-2023 End: 06-11-2023 Patient encounter procedure 06/11/2023 8:30 AM EDT Office Visit [facility] [address] [facility] [address] [place] [address] Farrukh Ng DO [address] [facility] [address] [place], [place] [id number] [facility] Start: 04-26-2023 End: 04-26-2023 Patient encounter procedure 04/26/2023 9:30 AM EST Office Visit [facility] [address] [facility] [address] [place] [address] Sekou Dai MD [address] [facility] [address] [place] [address] [place] [phone] [facility] Start: 2023 Pneumococcal Vaccine : 65+ Years (1 - PCV) Pneumococcal Vaccine: 65+ Years (1 - PCV) [facility] Start: 04-30-2022 [facility] Start: 04-24-2022 Hospital admission [facility] Start: 04-15-2022 [facility] Start: 04-08-2022 Hospital admission [facility] Start: 1960 Screening for malign ant neoplasm of colon [facility] Patient Education [facility] Work Phone: Patient referral [facility] Work Phone: Immunizations Immunization Date Immunization Notes Care Provider [facility] 12-01-2023 Seasonal trivalent influenza vaccine, adjuvanted, preservative free Farrukh Ng DO Work Phone: [facility] 12-01-2023 influenza virus vaccine, unspecified formulation Sekou Dai MD Work Phone: [facility] 06-11-2023 Pneumococcal Conjuga te PCV 20 Sekou Dai MD Work Phone: [facility] 02-08-2023 Influenza, injectabl e, Madin Austin Canine Kidney, preservative free, quadrivalent Yanci Graziani TRACK HOE OPERATOR Work Phone: [facility] 02-08-2023 influenza virus vaccine, unspecified formulation Sekou Dai MD Work Phone: [facility] 11-24-2021 Influenza, injectabl e, Madin Austin Canine Kidney, preservative free, quadrivalent Yanci Graziani TRACK HOE OPERATOR Work Phone: [facility] 12-18-2020 Influenza, injectabl e, Madin Dora Canine Kidney, preservative free, quadrivalent Yanci Graziani TRACK HOE OPERATOR Work Phone: [facility] 05-06-2020 COVID-19 [id number] (Deshaun) DO Farrukh Ng Work Phone: [facility] 12-29-2019 Influenza, injectabl e, Madin Dora Canine Kidney, preservative free, quadrivalent Yanci Graziani TRACK HOE OPERATOR Work Phone: [facility] 12-14-2018 influenza, injectabl e, quadrivalent, preservative free Yanci Graziani TRACK HOE OPERATOR Work Phone: [facility] 04-18-2018 tetanus toxoid, reduced diphtheria toxoid, and acellular pertussis vaccine, adsorbed [facility] 12-06-2017 Influenza, injectabl e, Madin Dora Canine Kidney, quadrivalent with preservative Yanci Graziani TRACK HOE OPERATOR Work Phone: [facility] 12-03-2017 influenza, injectabl e, quadrivalent, preservative free Yanci Graziani TRACK HOE OPERATOR Work Phone: [facility] 12-17-2016 influenza, injectabl e, quadrivalent, preservative free Yanci Graziani TRACK HOE OPERATOR Work Phone: [facility] 12-18-2015 influenza, injectabl e, quadrivalent, contains preservative Yanci Graziani TRACK HOE OPERATOR Work Phone: [facility] 12-24-2014 seasonal influenza, intradermal, preservative free Yanci Graziani TRACK HOE OPERATOR Work Phone: [facility] 09-18-2013 tetanus toxoid, reduced diphtheria toxoid, and acellular pertussis vaccine, adsorbed Yanci Graziani TRACK HOE OPERATOR Work Phone: [facility] 12-27-2012 influenza, seasonal, injectable Yanci Graziani TRACK HOE OPERATOR Work Phone: [facility] 11-24-2011 tetanus toxoid, reduced diphtheria toxoid, and acellular pertussis vaccine, adsorbed Yanci Graziani TRACK HOE OPERATOR Work Phone: [facility] Payers Date Payer Category Payer Medicare [id number] 2023 Private Health Insurance AARP Ma mber [id number] 2023 Unknown AARP AARP [id number] 2023-Present [id number] [place] [address] [id number] 2023 Medicare [id number] 2023 Unknown [id number] 2022 Self-pay 1959 Unknown [id number] 2.16.840.1.864524.19 1958 Unknown [id number] 2.16.840.1.276945.3.579.2 .593 1958 Unknown [id number] 2.16.840.1.384399.3.579.2 .1259 1958 Unknown [id number] 2.16.840.1.599565.3.579.2 .1259 1958 Unknown [id number] 2.16.840.1.232330.3.579.2 .1259 1958 Unknown [id number] 2.16.840.1.805064.3.579.2 .125 1958 Unknown [id number] 2.16.840.1.092165.3.579.2 .1258 1958 Unknown [id number] 2.16.840.1.633771.3.579.2 .1258 1958 Unknown [id number] 2.16.840.1.211435.3.579.2 .1258 1958 Unknown [id number] 2.16.840.1.142376.3.579.2 .1258 1958 Unknown [id number] 2.16.840.1.841230.3.579.2 .1258 1958 Unknown [id number] 2.16.840.1.363684.3.579.2 .1258 1958 Unknown [id number] 2.16.840.1.183729.3.579.2 .1258 1958 Unknown [id number] 2.16.840.1.926868.3.579.2 .1258 1958 Unknown [id number] 2.16.840.1.403978.3.579.2 .1258 1958 Unknown [id number] 2.16.840.1.042165.3.579.2 .1258 1958 Unknown [id number] 2.16.840.1.596952.3.579.2 .1258 1958 Unknown [id number] 2.16.840.1.329615.3.579.2 .1258 1958 Unknown [id number] 2.16.840.1.828060.3.579.2 .1258 1958 Unknown [id number] 2.16.840.1.519476.3.579.2 .1258 1958 Unknown [id number] 2.16.840.1.523827.3.579.2 .1259 1958 Unknown [id number] 2.16.840.1.260721.3.579.2 .1258 1958 Unknown [id number] 2.16.840.1.151772.3.579.2 .1258 1958 Unknown [id number] 2.16.840.1.985904.3.579.2 .1258 1958 Unknown [id number] 2.16.840.1.078431.3.579.2 .1258 1958 Unknown [id number] 2.16.840.1.919921.3.579.2 .1258 1958 Unknown [id number] 2.16.840.1.581323.3.579.2 .1258 1958 Unknown [id number] 2.16.840.1.727623.3.579.2 .1258 1958 Unknown [id number] 2.16.840.1.446735.3.579.2 .1258 1958 Unknown [id number] 2.16.840.1.892840.3.579.2 .1258 1958 Unknown [id number] 2.16.840.1.059887.3.579.2 .1259 Private Health Insurance [id number] Unknown [id number] Unknown HCAP/HFA/FAP Active [id number] Unknown [id number] 2.16.840.1.364955.3.579.2 .531 Unknown [id number] 2.16.840.1.828171.3.579.2 .531 Social History Date Type Detail Facility Start: 10-05-2022 End: 08-09-2024 Sex Assigned At [facility] Other Start: 04-09-2022 End: 10-05-2022 Tobacco smoking status NHIS Never smoked tobacco (finding) [facility] Start: 1960 Sex Assigned At Male [facility] Start: 04-25-2022 End: 10-14-2023 Tobacco smoking status NHIS Ex-smoker (finding) [facility] History of tobacco use Passive smoker [facility] Start: 10-05-2022 End: 10-14-2023 Tobacco use and exposure Smokeless tobacco non-user [facility] Start: 03-12-2023 Alcohol intake Current drinke r of alcohol (finding) [facility] Start: 10-05-2022 End: 08-09-2024 History of Social function [facility] How often to you hav e a drink containing alcohol? Monthly or less [facility] How many standard drinks containing alcohol do you have on a typical day? 1 or 2 [facility] How often do you hav e 6 or more drinks on 1 occasion? Monthly [facility] Start: 10-04-2022 Alcohol Comment Caffeine: coff ee, soda, 1-2 cups of 16 oz Coke daily [facility] Start: 1960 Sex Assigned At Not on file [facility] End: 03-01-2013 History of tobacco use Current smoker [facility] History of tobacco use Cigarette Smoker [facility] End: 03-01-2013 History of tobacco use Pipe Smoker [facility] Start: 11-08-2023 End: 05-11-2024 Alcoholic beverage intake Defer [facility] How often do you hav e 6 or more drinks on 1 occasion? Never [facility] Start: 07-05-2024 Sex Male (finding) [facility] Start: 08-09-2024 End: 09-28-2024 Alcoholic beverage intake Lifetime non-drinker (finding) [facility] Healthcare Goals Date Patient Goal Desired Activity /State Functional Status Date Assessment Result Facility 08-09-2024 PHQ-9 quick depressi on assessment panel [Reported.PHQ] [facility] 08-09-2024 Patient Health Quest ionnaire 2 item (PHQ-2) [Reported] [facility] 04-30-2022 Functional status Patient at Baseline [facility] Work Phone: 04-15-2022 Functional status Patient at Baseline [facility] Work Phone: [facility] Mental Status Date Assessment Result Facility 04-30-2022 Cognitive function Cognitive Sta tus Patient at Baseline [facility] Work Phone: 04-15-2022 Cognitive function Cognitive Sta tus Patient at Baseline [facility] Work Phone: Clinical Notes 09-27-2021 to 09-28-2024 Oj Mcgrath DPM - 09/28/2024 1:20 PM EDTSshreya Arellano PT - 09/27/2024 8:30 AM EDTTelephone Encounter - Domitila Stallings - 09/13/2024 11:04 AM Michael Dai MD - 09/11/2024 8:40 AM EDT Note Date & Type Note Facility 09-28-2024 History of Presen t illness Narrative Patient: Nancy Magdaleno : 1960 PCP: Farrukh Ng, DO SUBJECTIVE This is a 64 y.o. male that presents today with a CC of elongated, thick nails. Pt states nails have been elongated and thick for many years and cause pain with ambulation in shoegear. Pt has tried previous treatment with minimal relief. Pt presents today for nail care and treatment. Pt also has history of venous stasis to b/l lower extremities. Allergies: Allergies Allergen Reactions Amantadine Other Reaction(s): dizzy, wobbly, effected walking Codeine Nausea Only Other Reaction(s): nausea Oxycodone-Acetaminophen Past Medical History: Past Medical History: Diagnosis Date Anxiety Depressive disorder not elsewhere classified Esophageal polyp lower esophagus History of being hospitalized 04/2020 anxiety and depression History of psychiatric hospitalization (10/05 - 10/23/2014) - [facility] - Psych Unit Hypertension Medications: Current Outpatient Medications: atorvastatin (Lipitor) 40 MG tablet, TAKE 1 TABLET BY MOUTH ONCE DAILY IN THE EVENING, Disp: 90 tablet, Rfl: 2 benztropine (Cogentin) 0.5 MG tablet, Take 0.5 mg by mouth in the morning and 0.5 mg before bedtime., Disp: , Rfl: biotin 89321 MCG tablet, Take 1 tablet by mouth in the morning and 1 tablet before bedtime., Disp: , Rfl: buPROPion (Wellbutrin) 75 MG tablet, TAKE 1 TABLET BY MOUTH IN THE MORNING WITH THE 300 MG TABLET TO EQUAL 375 MG DAILY, Disp: , Rfl: buPROPion XL (Wellbutrin XL) 300 MG 24 hr tablet, Take 300 mg by mouth in the morning., Disp: , Rfl: busPIRone (Buspar) 30 MG tablet, Take 30 mg by mouth in the morning and 30 mg in the evening and 30 mg before bedtime., Disp: , Rfl: Calcium Carbonate-Vit D-Min (Calcium 600+D3 Plus Minerals) 600-800 MG-UNIT tablet, Take 1 tablet by mouth in the morning and 1 tablet before bedtime., Disp: , Rfl: cyanocobalamin (Vitamin B-12) 1000 MCG tablet, Take 1,000 mcg by mouth in the morning., Disp: , Rfl: divalproex (Depakote) 500 MG EC tablet, Take 1,000 mg by mouth at bedtime, Disp: , Rfl: furosemide (Lasix) 20 MG tablet, Take 1 tablet (20 mg) by mouth Daily, Disp: 90 tablet, Rfl: 3 Ginkgo 60 MG tablet, Take 120 mg by mouth in the morning and 120 mg before bedtime., Disp: , Rfl: hydrOXYzine HCl (Atarax) 25 MG tablet, Take 25 mg by mouth 3 (three) times a day as needed for anxiety, Disp: , Rfl: lisinopril 5 MG tablet, Take 1 tablet (5 mg) by mouth Daily, Disp: 90 tablet, Rfl: 3 Memantine HCl ER 28 MG capsule sustained-release 24 hr, Take 28 mg by mouth at bedtime, Disp: 30 capsule, Rfl: 11 Multiple Vitamins-Minerals (CENTRUM SILVER PO), Take by mouth Daily., Disp: , Rfl: paliperidone (Invega) 6 MG 24 hr tablet, Take 2 tablets by mouth in the morning., Disp: , Rfl: potassium chloride CR (KLOR-CON) 10 MEQ ER tablet, Take 1 tablet (10 mEq) by mouth Daily, Disp: 90 tablet, Rfl: 3 QUEtiapine (SEROquel) 25 MG tablet, Take 25 mg by mouth in the morning and 25 mg before bedtime. 25 mg in afternoon and 50 mg at bedtime., Disp: , Rfl: rOPINIRole (Requip) 0.5 MG tablet, Take 1 tablet (0.5 mg) by mouth in the morning and 1 tablet (0.5 mg) in the evening and 1 tablet (0.5 mg) before bedtime., Disp: 90 tablet, Rfl: 11 rOPINIRole (Requip) 1 MG tablet, Take 2 tablets (2 mg) by mouth in the morning and 2 tablets (2 mg) at noon and 2 tablets (2 mg) in the evening., Disp: 540 tablet, Rfl: 3 sertraline (Zoloft) 100 MG tablet, take 2 tablets by mouth once daily, Disp: , Rfl: thiamine (Vitamin B-1) 100 MG tablet, Take 1 tablet (100 mg) by mouth Daily, Disp: 30 tablet, Rfl: 11 traZODone (Desyrel) 100 MG tablet, Take 150 mg by mouth at bedtime, Disp: , Rfl: Social History: Social History Socioeconomic History Marital status: Spouse name: Not on file Number of children: Not on file Years of education: Not on file Highest education level: Not on file Occupational History Not on file Tobacco Use Smoking status: Former Types: Cigarettes, Pipe Quit date: 2013 Years since quittin.5 Passive exposure: Past Smokeless tobacco: Never Substance and Sexual Activity Alcohol use: Never Comment: Caffeine: coffee, soda, 1-2 cups of 16 oz Coke daily Drug use: Never Sexual activity: Not on file Other Topics Concern Not on file Social History Narrative Not on file Social Drivers of Health Financial Resource Strain: Not on file Food Insecurity: Not on file Transportation Needs: Not on file Physical Activity: Not on file Stress: Not on file Social Connections: Not on file Intimate Partner Violence: Not on file Housing Stability: Not on file ROS: General: denies fever, chills, fatigue, malaise Cardiovascular: denies CP, palpitations, irregular rhythms OBJECTIVE LE EXAM: DERM: Elongated thick yellow crumbly nails digits 1 through 10. Diminished hair growth b/l feet. Plus two pitting edema to bilateral ankles VASC: Positive palpable pedal pulses bilaterally NEURO: Gross sensation intact to bilateral feet ORTHO: Positive pain on palpation to toenails of the left 1,2,3,4,5 toes and right 1,2,3,4,5 toes Negative pain on palpation to bilateral calf regions ASSESSMENT 1. Pain due to onychomycosis of toenails of both feet 2. Venous insufficiency of both lower extremities PLAN Discussed proper foot care with patient today. Debride nails in length and thickness digits 1 through 10 Visit spent with patient education on condition and treatment of condition. Continue with elevation of feet while nonweightbearing Oj Mcgrath DPM documented in this encounter [facility] 09-27-2024 History of Presen t illness Narrative Images from the original note were not included. Physical Therapy Treatment Visit Patient Name: Nancy Magdaleno Today's Date: 09/27/2024 Encounter Diagnoses Name Primary? 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 Diagnosed with Parkinson's about 2-3 years ago. Pt's reports 5 falls within the last month. Pt states he feels like he just loses his balance when standing. states house has one step to enter and pt with frequently catch foot on step and trip. Trying to remind him each time he goes up to lift legs. Pt has 2 wheeled walker that he will occasionally use when gait gets bad. Precautions: FALLS Subjective: Pt states his legs were a little sore following last session. No joint pain, only muscle soreness. Pain: 0/10 Objective: PT Evaluation (09/22/2024) Functional Mobility: Gait: TUG without device: 21.72 seconds and 18.78 seconds. Ten Meter Walk Test: 9.58 seconds without device. Strength: Five Time Sit to Stand: 23.81 seconds with arms across chest Balance: Barnes Balance Test: Treatment: Education: HEP education with demonstration, Educated on Eval Findings and POC Manual Therapy: Passive ROM, Joint mobilization, Soft Tissue Mobilization, Myofascial Release, Muscle Energy Technique, Neural Mobilization, Myofascial Cupping, Dry Needling, IASTM, and Scar mobilization as needed. Therapeutic Exercise: (21 minutes) Strength, Endurance, Flexibility, ROM, HEP, Neural Mobilization, Power, and Core Stability as needed. Pt performed and instructed in home program this date; written instructions and pictures issued with good pt understanding. Therapeutic Activity: (13 minutes) Exercises to improve dynamic activities, functional tasks, functional mobility to return to prior activity level as needed. Neuromuscular re-education: (10 minutes) Balance Training, Muscle Facilitation, Dynamic Stability, Core Stabilization, and Blood Flow Restriction Training (BFRT) as needed. Modalities: Heat, Ice, Electrical Stimulation, Ultrasound, Cervical Mechanical Traction, Lumbar Mechanical Traction, Iontophoresis, and Fluidotherapy as needed. Assessment: Pt has completed 3 PT sessions for LE weakness and difficulty walking. Added LE stretching this date to increase pt flexibility. Pt requires CG/min A with standing balance exercises for safety. Will continue to progress as pt tolerates. Outcome Measure: Lower Extremity Functional Scale (LEFS): 30/80 Rehab Diagnosis: bilateral LE weakness, decrease balance, multiple falls, difficulty walking Short Term Goal: To be met in 2 weeks Goal 1: Pt to be instructed in home exercise program. Early Childhood Teacher Assistant Goals: To be met in 10 weeks Goal 1: Pt to report independence and compliance with home program. Goal 2: Pt to complete TUG in less than 13.0 seconds indicating improved gait and mobility. Goal 3: Pt to complete Five Sit to Stands in less than 17.0 seconds with hands across chest indicating improved functional strength of LE's. Goal 4: Pt to score no less than 40/56 on Barnes Balance Test indicating improved balance and decrease risk for falls. Goal 5: Pt to score no less than 50/80 on LEFS indicating improved QOL. Pt will benefit from skilled PT for 2x/week from 09/22/2024 to 12/15/2024 to address the above impairments. I hereby deem this POC medically necessary. Please sign below. Date: documented in this encounter [facility] 09-13-2024 Telephone encount er Note Scheduled PT Eval 09/22 - 10/06/24 [facility] 09-13-2024 Miscellaneous Notes Formattin g of this note might be different from the original. Scheduled PT Eval 09/22 - 10/06/24 LM re: PT Eval and scheduling time / day to begin. Ask for verification if he is receiving In-Home / Home Health? Due to Parkinsonism due to drug, I verified w/ Antionette and she recommended PT 1st and if OT is essential to offer. documented in this encounter [facility] 09-11-2024 Telephone encount er Note LM re: PT Eval and scheduling time / day to begin. Ask for verification if he is receiving In-Home / Home Health? Due to Parkinsonism due to drug, I verified w/ Antionette and she recommended PT 1st and if OT is essential to offer. [facility] 09-11-2024 History of Presen t illness Narrative Images from the original note were not included. Subjective Nancy Magdaleno is a 64 y.o. male who presents for Parkinson's History of Present Illness The patient presents for evaluation of Parkinson's disease. He has been experiencing difficulty in walking, which has led to several falls. His feet tend to shuffle backwards, causing him to fall forward. This issue has become more pronounced over the past few months. The first fall occurred in 05/2024, resulting in a dislocated pinky finger. In the last month, he has had four additional falls, leading to bruises on his leg and arm. He is left-handed. He has not engaged in home therapy, but when he did, it was beneficial. However, he did not continue with the therapy. A request for a prescription for a transport chair was made during the visit. He is unable to stand for extended periods. His current medication regimen includes ropinirole 1 mg three times a day and Namenda 28 mg. His sleep pattern is irregular, often sleeping excessively during the day and staying up late at night. There was an instance where he stayed awake all night and then slept throughout the following day. His appetite remains good. SOCIAL HISTORY: Sleep: Irregular sleep pattern, often sleeping excessively during the day and staying up late at night. MEDICATIONS CURRENT MEDS: Ropinirole 1 mg Oral Three times daily Namenda 28 mg Oral Daily Review of Systems Const: Denies appetite change, fever, chills. Allergy: Denies medication reaction. Ocular: Denies visual acuity change. ENT: Denies hearing change. Endoc: Denies weight loss. Resp: Denies dyspnoea, wheezing. Cardiac: Denies angina, palpitations. GI: Denies nausea, vomiting. Haem: Denies bleeding. : Denies incontinence. MSK: Denies arthralgias, joint oedema. Derm: Denies rash, hair loss. Neuro: Denies ataxia, tremor. Also see HPI for elements of ROS documented therein and for details of positive findings, which shall supersede the foregoing. Objective Blood pressure 126/84, height 6' 1 , weight 205 lb 9.6 oz. Physical Exam Motor Examination Strength: Hand strength normal. Lower limb strength normal. Gait and Station Gait: Shuffling gait with festination. Results Assessment & Plan 1. Parkinson's disease. He has been experiencing increased falls, with the last four falls occurring within the past month. The current medication regimen includes ropinirole 1 mg three times a day and Namenda 28 mg. The dosage of ropinirole will be increased to 2 mg three times a day to help reduce the frequency of falls. A prescription for a transport chair will be provided to assist with mobility, along with a letter of medical necessity. Physical therapy will be initiated to further aid in improving his condition. 2. Sleep disturbances. He reports excessive daytime sleepiness and irregular sleep patterns, including staying up late and occasionally staying awake all night. The current medication regimen will be maintained, and the adjustment in ropinirole dosage may help improve sleep patterns. 3. Increase the Requip 1 mg 2 QID. 4. I will continue the patient on Namenda (memantine) which is a medication primarily used to treat moderate to severe Alzheimer s disease. It works by regulating the activity of glutamate, a neurotransmitter involved in learning and memory. In Alzheimer s, excessive glutamate can overstimulate nerve cells, leading to damage. Namenda helps protect nerve cells by blocking NMDA receptors, which are activated by glutamate, potentially improving cognitive function and slowing the progression of symptoms in some patients. It is often used in combination with other Alzheimer s medications, like cholinesterase inhibitors. 5. I counseled the patient on the possible side effects and interactions of medications. This clinical note was created utilizing [employer] documentation system. All information has been thoroughly reviewed, corrected as necessary, and authenticated by the provider to ensure accuracy and completeness. On occasion, JOSEPH ambient documentation system erroneously drops words or replaces a spoken word with a similar sounding word. Please notify with any questions or concerns regarding this clinical note. documented in this encounter [facility] 07-05-20[address] [facility] 07-05-2024 History and physi jennifer note [facility] 05-11-2024 History of Presen t illness Narrative Patient: Nancy Magdaleno : 1960 PCP: DO JUSTIN Bangura This is a 64 y.o. male that presents today with a CC of elongated, thick nails. Pt states nails have been elongated and thick for many years and cause pain with ambulation in shoegear. Pt has tried previous treatment with minimal relief. Pt presents today for nail care and treatment. Pt also has history of venous stasis to b/l lower extremities. Allergies: Allergies Allergen Reactions Amantadine Other Reaction(s): dizzy, wobbly, effected walking Benztropine Other Reaction(s): Unsteady,dizzy Codeine Nausea Only Other Reaction(s): nausea Oxycodone-Acetaminophen Past Medical History: Past Medical History: Diagnosis Date Anxiety Depressive disorder (CMS/HCC) not elsewhere classified Esophageal polyp lower esophagus History of being hospitalized 04/2020 anxiety and depression History of psychiatric hospitalization (10/05 - 10/23/2014) - [facility] - Psych Unit Hypertension ([facility]/HCC) Medications: Current Outpatient Medications: atorvastatin (Lipitor) 40 MG tablet, Take 1 tablet (40 mg) by mouth at bedtime, Disp: 30 tablet, Rfl: 11 benztropine (Cogentin) 0.5 MG tablet, Take 0.5 mg by mouth in the morning and 0.5 mg before bedtime., Disp: , Rfl: biotin 90154 MCG tablet, Take 1 tablet by mouth in the morning and 1 tablet before bedtime., Disp: , Rfl: buPROPion (Wellbutrin) 75 MG tablet, TAKE 1 TABLET BY MOUTH IN THE MORNING WITH THE 300 MG TABLET TO EQUAL 375 MG DAILY, Disp: , Rfl: buPROPion XL (Wellbutrin XL) 300 MG 24 hr tablet, Take 300 mg by mouth in the morning., Disp: , Rfl: busPIRone (Buspar) 30 MG tablet, Take 30 mg by mouth in the morning and 30 mg in the evening and 30 mg before bedtime., Disp: , Rfl: cyanocobalamin (Vitamin B-12) 1000 MCG tablet, Take 1,000 mcg by mouth in the morning., Disp: , Rfl: divalproex (Depakote) 500 MG EC tablet, Take 1,000 mg by mouth at bedtime, Disp: , Rfl: furosemide (Lasix) 20 MG tablet, Take 1 tablet (20 mg) by mouth Daily, Disp: 90 tablet, Rfl: 3 Ginkgo 60 MG tablet, Take 120 mg by mouth in the morning and 120 mg before bedtime., Disp: , Rfl: hydrOXYzine HCl (Atarax) 25 MG tablet, Take 25 mg by mouth 3 (three) times a day as needed for anxiety, Disp: , Rfl: lisinopril 5 MG tablet, Take 1 tablet (5 mg) by mouth Daily, Disp: 90 tablet, Rfl: 3 Memantine HCl ER 28 MG capsule sustained-release 24 hr, Take 28 mg by mouth at bedtime, Disp: 30 capsule, Rfl: 11 Multiple Vitamins-Minerals (CENTRUM SILVER PO), Take by mouth Daily., Disp: , Rfl: paliperidone (Invega) 6 MG 24 hr tablet, Take 2 tablets by mouth in the morning., Disp: , Rfl: potassium chloride CR (KLOR-CON) 10 MEQ ER tablet, Take 1 tablet (10 mEq) by mouth Daily, Disp: 90 tablet, Rfl: 3 QUEtiapine (SEROquel) 25 MG tablet, Take 25 mg by mouth in the morning and 25 mg before bedtime. 25 mg in afternoon and 50 mg at bedtime., Disp: , Rfl: rOPINIRole (Requip) 0.5 MG tablet, Take 1 tablet (0.5 mg) by mouth in the morning and 1 tablet (0.5 mg) in the evening and 1 tablet (0.5 mg) before bedtime., Disp: 90 tablet, Rfl: 11 rOPINIRole (Requip) 1 MG tablet, Take 1 tablet (1 mg) by mouth in the morning and 1 tablet (1 mg) in the evening and 1 tablet (1 mg) before bedtime., Disp: 270 tablet, Rfl: 3 sertraline (Zoloft) 100 MG tablet, take 2 tablets by mouth once daily, Disp: , Rfl: thiamine (Vitamin B-1) 100 MG tablet, Take 1 tablet (100 mg) by mouth Daily, Disp: 30 tablet, Rfl: 11 traZODone (Desyrel) 100 MG tablet, Take 150 mg by mouth at bedtime, Disp: , Rfl: Social History: Social History Socioeconomic History Marital status: Spouse name: Not on file Number of children: Not on file Years of education: Not on file Highest education level: Not on file Occupational History Not on file Tobacco Use Smoking status: Former Types: Cigarettes, Pipe Quit date: 2013 Years since quittin. Passive exposure: Past Smokeless tobacco: Never Substance and Sexual Activity Alcohol use: Defer Comment: Caffeine: coffee, soda, 1-2 cups of 16 oz Coke daily Drug use: Never Sexual activity: Not on file Other Topics Concern Not on file Social History Narrative Not on file Social Drivers of Health Financial Resource Strain: Not on file Food Insecurity: Not on file Transportation Needs: Not on file Physical Activity: Not on file Stress: Not on file Social Connections: Not on file Intimate Partner Violence: Not on file Housing Stability: Not on file ROS: General: denies fever, chills, fatigue, malaise Cardiovascular: denies CP, palpitations, irregular rhythms OBJECTIVE LE EXAM: DERM: Elongated thick yellow crumbly nails digits 1 through 10. Diminished hair growth b/l feet. Plus two pitting edema to bilateral ankles VASC: Positive palpable pedal pulses bilaterally NEURO: Gross sensation intact to bilateral feet ORTHO: Positive pain on palpation to toenails of the left 1,2,3,4,5 toes and right 1,2,3,4,5 toes Negative pain on palpation to bilateral calf regions ASSESSMENT 1. Pain due to onychomycosis of toenails of both feet 2. Venous insufficiency of both lower extremities PLAN Discussed proper foot care with patient today. Debride nails in length and thickness digits 1 through 10 Visit spent with patient education on condition and treatment of condition. Continue with elevation of feet while nonweightbearing Oj Mcgrath DPM documented in this encounter [facility] 04-11-2024 History of Presen t illness Narrative Images from the original note were not included. Nancy Magdaleno is a 64 y.o. male presents with chief complaint of 4 month follow up (Pt is being seen today for his 4 month follow up and managment of her chronic conditions. Pt had lab work done in preparations for todays visit, results and recommendations will be reviewed with them./) HPI: History of Present Illness The patient presents for a routine visit. He reports overall good health, with no complaints of cough, shortness of breath, or chest pain. He has a living will and a healthcare power of civil rights attorney in place. His bowel and bladder functions are normal, although he experiences difficulty with the initial passage of stool during bowel movements, necessitating manual assistance. He describes his stools as hard in consistency. He is not currently on any medication for reflux. He has hearing impairment and uses a hearing aid in his left ear, which he reports as ill-fitting. He does not consume excessive amounts of salty foods and has a habit of keeping his feet down most of the time. He is on furosemide and lisinopril 5 mg. He has not been monitoring his blood pressure at home recently. He is under the care of a nurse practitioner for mental health issues. He has been diagnosed with Parkinson's disease by Dr. Dai, who was uncertain if the condition was a side effect of his medications. He has a history of bipolar disorder, which is currently stable, but continues to struggle with depression and anxiety. He has experienced recent falls due to balance issues, including incidents in the kitchen and while ascending steps from the garage. He is left-handed and has a tremor, more pronounced on the left side. He is on ropinirole and biotin for his tremor and memory, respectively. MEDICATIONS Current: Ropinirole, biotin, atorvastatin, furosemide, lisinopril I have reviewed and reconciled the history and medication list with the patient today. CURRENT PCP/CARE TEAM: Patient Care Team: Farrukh Ng DO as PCP - General (Internal Medicine) Farrukh Ng DO as PCP - O [facility] Sekou Dai MD as Referring Physician (Neurology) Óscar Jeffers MD as Referring Physician (Ophthalmology) HISTORIES: PAST MEDICAL HISTORY: Past Medical History: Diagnosis Date Anxiety Depressive disorder ([facility]) not elsewhere classified Esophageal polyp lower esophagus History of being hospitalized 04/2020 anxiety and depression History of psychiatric hospitalization (10/05 - 10/23/2014) - [facility] - Psych Unit Hypertension ([facility]) SURGICAL HISTORY: Past Surgical History: Procedure Laterality Date ESOPHAGOGASTRODUODENOSCOPY 2004 with biopsy - for lower esophageal polyp KNEE SURGERY NOSE SURGERY OTHER SURGICAL HISTORY ear TYMPANOPLASTY 1995 Mastoid SOCIAL HISTORY: Social History Tobacco Use Smoking status: Former Types: Cigarettes, Pipe Quit date: 2013 Years since quittin.1 Passive exposure: Past Smokeless tobacco: Never Substance Use Topics Alcohol use: Defer Comment: Caffeine: coffee, soda, 1-2 cups of 16 oz Coke daily Drug use: Never Depression: Not at risk (04/11/2024) PHQ-2 PHQ-2 Score: 2 FAMILY HISTORY: Family History Problem Relation Name Age of Onset Heart disease Mother Lung disease Mother Pneumonia Father Heart disease Maternal Grandmother Heart disease Maternal Grandfather MEDICATIONS: Current Outpatient Medications Medication Instructions atorvastatin (LIPITOR) 40 mg, Oral, Nightly benztropine (COGENTIN) 0.5 mg, 2 times daily biotin 26375 MCG tablet 1 tablet, 2 times daily buPROPion (Wellbutrin) 75 MG tablet TAKE 1 TABLET BY MOUTH IN THE MORNING WITH THE 300 MG TABLET TO EQUAL 375 MG DAILY buPROPion XL (WELLBUTRIN XL) 300 mg, Daily busPIRone (BUSPAR) 30 mg, 3 times daily cyanocobalamin (VITAMIN B-12) 1,000 mcg, Daily RT divalproex (DEPAKOTE) 1,000 mg, Nightly furosemide (LASIX) 20 mg, Oral, Daily Ginkgo 120 mg, 2 times daily hydrOXYzine HCl (ATARAX) 25 mg, 3 times daily PRN lisinopril 5 mg, Oral, Daily Memantine HCl ER 28 mg, Oral, Nightly Multiple Vitamins-Minerals (CENTRUM SILVER PO) Daily paliperidone (Invega) 6 MG 24 hr tablet 2 tablets, Every morning potassium chloride CR (KLOR-CON) 10 MEQ ER tablet 10 mEq, Oral, Daily QUEtiapine (SEROQUEL) 25 mg, 2 times daily rOPINIRole (REQUIP) 1 mg, Oral, 3 times daily rOPINIRole (REQUIP) 0.5 mg, Oral, 3 times daily sertraline (Zoloft) 100 MG tablet take 2 tablets by mouth once daily thiamine (VITAMIN B-1) 100 mg, Oral, Daily traZODone (DESYREL) 150 mg, Nightly ALLERGIES: Allergies Allergen Reactions Amantadine Other Reaction(s): dizzy, wobbly, effected walking Benztropine Other Reaction(s): Unsteady,dizzy Codeine Nausea Only Other Reaction(s): nausea Oxycodone-Acetaminophen PHYSICAL EXAM: Visit Vitals BP 106/70 Pulse 86 Ht 6' 1 Wt 205 lb SpO2 96% BMI 27.05 kg/m Smoking Status Former BSA 2.19 m BP Readings from Last 3 Encounters: 04/11/24 106/70 02/14/24 124/78 12/23/23 126/79 Wt Readings from Last 3 Encounters: 04/11/24 205 lb 03/10/24 215 lb 03/02/24 217 lb Physical Exam Constitutional: Appearance: Normal appearance. HENT: Head: Normocephalic. Right Ear: Tympanic membrane normal. Left Ear: Tympanic membrane normal. Nose: Nose normal. Mouth/Throat: Mouth: Mucous membranes are moist. Pharynx: Oropharynx is clear. Eyes: Extraocular Movements: Extraocular movements intact. Neck: Thyroid: No thyromegaly. Vascular: No carotid bruit. Cardiovascular: Rate and Rhythm: Normal rate and regular rhythm. Heart sounds: Normal heart sounds. No murmur heard. Pulmonary: Effort: No respiratory distress. Breath sounds: Normal breath sounds. Abdominal: General: Bowel sounds are normal. Palpations: Abdomen is soft. There is no mass. Tenderness: There is no abdominal tenderness. Musculoskeletal: General: No swelling. Cervical back: Neck supple. No rigidity or tenderness. Right lower le+ Edema present. Left lower le+ Edema present. Lymphadenopathy: Cervical: No cervical adenopathy. Skin: General: Skin is warm and dry. Neurological: Mental Status: He is oriented to person, place, and time. Psychiatric: Mood and Affect: Mood normal. Thought Content: Thought content normal. Judgment: Judgment normal. Results Laboratory Studies CBC is normal, no anemia, platelet count is good. Blood sugar was 86. Kidney function was 83. Potassium was normal. Sodium was normal. Total protein is normal. Liver functions are normal. Vitamin D level was good in October 2023. PSA was normal in October 2023. ASSESSMENT AND PLAN: Assessment & Plan 1. Major depressive disorder, recurrent, severe with psychotic symptoms (HCC) (CMS/HCC) -follows with behavioral health 2. Parkinsonism, unspecified Parkinsonism type (CMS/HCC) -He is currently on ropinirole and biotin for his tremors and memory issues. He reports no recent falls but has experienced balance issues. He is encouraged to engage in balance exercises available on [employer], specifically those by physical therapists Matt. 3. Bipolar affective disorder, remission status unspecified (CMS/HCC) -His bipolar disorder is reported to be stable. 4. Tremor (Primary) -slight, on medications 5. Frequent falls -advised to watch Matt U-tube for PT exercises 6. Primary hypertension (CMS/HCC) - Comprehensive metabolic panel; Future - Microalbumin / creatinine urine ratio; Future -His blood pressure is around 106/70 mmHg. He is advised to monitor his blood pressure at home. If it remains low, he may need to hold his lisinopril 5 mg. 7. Mixed hyperlipidemia (CMS/HCC) -He is currently taking atorvastatin 40 mg for cholesterol management. His recent lab work shows good control of his cholesterol levels. 8. History of colon polyps - Ambulatory referral to Gastroenterology; Future 9. Constipation. He reports having to push to have bowel movements and experiencing hard stools. He is advised to increase fluid intake and consider using prune juice with pulp. Mepr-lhm-sohhgdx stool softeners such as Senokot, Colace, or Romelia-Colace are recommended. If necessary, MiraLAX can be used every second or third day. 10. Hearing Loss. He reports difficulty hearing and has a hearing aid for his left ear, which does not fit well. He is advised to visit the audiology clinic in [place] for potential adjustments to his hearing aid. 11. Lower extremity edema. He is advised to elevate his feet more frequently to manage leg swelling. 19. Health Maintenance. His CBC, blood sugar, kidney function, potassium, sodium, total protein, liver functions, vitamin D level, and PSA are all within normal limits. He had a colonoscopy in 2019, which revealed a polyp. He is due for another colonoscopy in July 2024. A referral for a colonoscopy will be made today. He is also advised to continue his current regimen of atorvastatin 40 mg and furosemide. Follow-up The patient will follow up in 4 months. PROCEDURE Colonoscopy in [address] Ng was present in office suite today and is supervising patient care and available for consult. I'm following his plan of care for the above problems. Previous notes and plan were reviewed and followed. documented in this encounter [facility] 03-10-2024 History of Presen t illness Narrative Subjective Patient ID: Nancy Magdaleno is a 63 y.o. male who presents for Mastoid Cleaning HPI Patient presents for recheck of his right ear. Status post mastoidectomy on the right side. Has had significant difficulties with accumulation of cerumen on the right side. Does describe some decreased hearing on that side. Presents today for mastoid cleaning. Review of Systems Patient denies any pain or drainage from the right ear. Does describe decreased hearing. The rest of his review of systems is negative Objective ENT Physical Exam General Examination: General overview: Normal, age-appropriate, no evidence of distress Head: Normocephalic, atraumatic Eyes: Pupils are equally round and reactive to light and accommodation, extraocular muscles are intact Ears: External ear architecture within normal limits, ear canals are patent, tympanic membranes are intact. Mastoid care: Consent: Consent was obtained Procedure: The patient was taken to the procedure room and placed in the exam chair/table. An operating microscope was brought into the field for microdissection. Ear canal and mastoid cavity are thoroughly inspected. Mastoid care was performed. Disposition: This patient tolerated this procedure extremely well. Thoroughly instructed on postprocedure care. Plan for follow-up in the future given. Nose: External nose unremarkable, nares patent, septum intact, no evidence of congestion. Oral cavity: Mucosa moist, no evidence of ulcer, mass, or lesion Throat: Clear Neck/thyroid: Neck supple, full range of motion, no cervical lymphadenopathy, no evidence of thyromegaly Lymph nodes: No cervical lymphadenopathy Skin: Warm and dry, no evidence of suspicious lesions, no rash Heart: No jugular venous distention, point of maximal impulse normal Lungs: Good air movement, no audible wheezing, no shortness of breath Chest: Normal shape and expansion Abdomen: Normal, soft, nontender, nondistended Musculoskeletal: Cervical spine normal, full range of motion Extremities: No clubbing, cyanosis, or edema Peripheral pulses: 2+ radial, 2+ carotid Neurologic: Alert and oriented, cranial nerves 2-12 are grossly intact Psych: Alert and oriented, normal affect, no evidence of distress Assessment/Plan Diagnoses and all orders for this visit: History of mastoidectomy Comments: Mastoid cavity cleaned without difficulty. Follow up in 1 year Impacted cerumen of left ear Comments: Resolved Sensorineural hearing loss (SNHL), unspecified laterality Comments: Will contact this office if he notices any worsening of hearing documented in this encounter [facility] 03-02-2024 History of Presen t illness Narrative Patient: Nancy Magdaleno : 1960 PCP: Farrukh Ng DO SUBJECTIVE This is a 63 y.o. male that presents today with a CC of elongated, thick nails. Pt states nails have been elongated and thick for many years and cause pain with ambulation in shoegear. Pt has tried previous treatment with minimal relief. Pt presents today for nail care and treatment. Pt also has history of venous stasis to b/l lower extremities. Allergies: Allergies Allergen Reactions Amantadine Other Reaction(s): dizzy, wobbly, effected walking Benztropine Other Reaction(s): Unsteady,dizzy Codeine Nausea Only Other Reaction(s): nausea Oxycodone-Acetaminophen Past Medical History: Past Medical History: Diagnosis Date Anxiety Depressive disorder (CMS/HCC) not elsewhere classified Esophageal polyp lower esophagus History of being hospitalized 04/2020 anxiety and depression History of psychiatric hospitalization (10/05 - 10/23/2014) - [facility] - Psych Unit Hypertension ([facility]) Medications: Current Outpatient Medications: atorvastatin (Lipitor) 40 MG tablet, Take 1 tablet (40 mg) by mouth at bedtime, Disp: 30 tablet, Rfl: 11 benztropine (Cogentin) 0.5 MG tablet, Take 0.5 mg by mouth in the morning and 0.5 mg before bedtime., Disp: , Rfl: biotin 48913 MCG tablet, Take 1 tablet by mouth in the morning and 1 tablet before bedtime., Disp: , Rfl: buPROPion (Wellbutrin) 75 MG tablet, TAKE 1 TABLET BY MOUTH IN THE MORNING WITH THE 300 MG TABLET TO EQUAL 375 MG DAILY, Disp: , Rfl: buPROPion XL (Wellbutrin XL) 300 MG 24 hr tablet, Take 300 mg by mouth in the morning., Disp: , Rfl: busPIRone (Buspar) 30 MG tablet, Take 30 mg by mouth in the morning and 30 mg in the evening and 30 mg before bedtime., Disp: , Rfl: cyanocobalamin (Vitamin B-12) 1000 MCG tablet, Take 1,000 mcg by mouth in the morning., Disp: , Rfl: divalproex (Depakote) 500 MG EC tablet, Take 1,000 mg by mouth at bedtime, Disp: , Rfl: furosemide (Lasix) 20 MG tablet, Take 1 tablet (20 mg) by mouth Daily (Patient taking differently: Take 20 mg by mouth Daily Take 2 tablets if needed.), Disp: 90 tablet, Rfl: 3 Ginkgo 60 MG tablet, Take by mouth Daily., Disp: , Rfl: hydrOXYzine HCl (Atarax) 25 MG tablet, Take 25 mg by mouth 3 (three) times a day as needed for anxiety, Disp: , Rfl: lisinopril 5 MG tablet, Take 1 tablet (5 mg) by mouth Daily, Disp: 90 tablet, Rfl: 3 Memantine HCl ER 28 MG capsule sustained-release 24 hr, Take 28 mg by mouth at bedtime, Disp: 30 capsule, Rfl: 11 Multiple Vitamins-Minerals (CENTRUM SILVER PO), Take by mouth Daily., Disp: , Rfl: paliperidone (Invega) 6 MG 24 hr tablet, Take 2 tablets by mouth in the morning., Disp: , Rfl: potassium chloride CR (KLOR-CON) 10 MEQ ER tablet, Take 1 tablet (10 mEq) by mouth Daily, Disp: 90 tablet, Rfl: 3 QUEtiapine (SEROquel) 25 MG tablet, Take 25 mg by mouth in the morning and 25 mg before bedtime. 25 mg in afternoon and 50 mg at bedtime., Disp: , Rfl: rOPINIRole (Requip) 0.5 MG tablet, Take 1 tablet (0.5 mg) by mouth in the morning and 1 tablet (0.5 mg) in the evening and 1 tablet (0.5 mg) before bedtime., Disp: 90 tablet, Rfl: 11 rOPINIRole (Requip) 1 MG tablet, Take 1 tablet (1 mg) by mouth in the morning and 1 tablet (1 mg) in the evening and 1 tablet (1 mg) before bedtime., Disp: 270 tablet, Rfl: 3 sertraline (Zoloft) 100 MG tablet, take 2 tablets by mouth once daily, Disp: , Rfl: thiamine (Vitamin B-1) 100 MG tablet, Take 1 tablet (100 mg) by mouth Daily, Disp: 30 tablet, Rfl: 11 traZODone (Desyrel) 100 MG tablet, Take 150 mg by mouth at bedtime, Disp: , Rfl: Social History: Social History Socioeconomic History Marital status: Spouse name: Not on file Number of children: Not on file Years of education: Not on file Highest education level: Not on file Occupational History Not on file Tobacco Use Smoking status: Former Types: Cigarettes, Pipe Quit date: 2013 Years since quittin.9 Passive exposure: Past Smokeless tobacco: Never Substance and Sexual Activity Alcohol use: Defer Comment: Caffeine: coffee, soda, 1-2 cups of 16 oz Coke daily Drug use: Never Sexual activity: Not on file Other Topics Concern Not on file Social History Narrative Not on file Social Drivers of Health Financial Resource Strain: Not on file Food Insecurity: Not on file Transportation Needs: Not on file Physical Activity: Not on file Stress: Not on file Social Connections: Not on file Intimate Partner Violence: Not on file Housing Stability: Not on file ROS: General: denies fever, chills, fatigue, malaise Cardiovascular: denies CP, palpitations, irregular rhythms OBJECTIVE LE EXAM: DERM: Elongated thick yellow crumbly nails digits 1 through 10. Diminished hair growth b/l feet. Plus two pitting edema to bilateral ankles VASC: Positive palpable pedal pulses bilaterally NEURO: Gross sensation intact to bilateral feet ORTHO: Positive pain on palpation to nails 1 through 10 Negative pain on palpation to bilateral calf regions ASSESSMENT 1. Pain due to onychomycosis of toenails of both feet 2. Venous insufficiency of both lower extremities PLAN Discussed proper foot care with patient today. Debride nails in length and thickness digits 1 through 10 Visit spent with patient education on condition and treatment of condition. Continue with elevation of feet while nonweightbearing Oj Mcgrath DPM documented in this encounter [facility] 02-14-2024 History of Presen t illness Narrative Images from the original note were not included. CHIEF COMPLAINT REASON FOR VISIT: Parkinsons HPI: Nancy Magdaleno is a 63 y.o. male who presents for a follow up. States it is hard to tell if the memantine is working. But he is no worse. Spouse states it is hard to tell because he sleeps so much. He states he sleeps all night and will take naps throughout the day. He states his appetite is good. He is down 5 lbs from last visit. Both states his balance has been good. He states he does still have a little difficulty with swallowing but it has been better. Spouse states she tells him he needs to drink more water. She states he does eat fast and does not drink enough water. States his shakiness seems to be slightly worse in the hands. Denies any other new symptoms or concerns today. CURRENT MEDICATIONS: ALLERGIES/DISCONTINUE MEDICATIONS Current Outpatient Medications Medication Instructions atorvastatin (LIPITOR) 40 mg, Oral, Nightly benztropine (COGENTIN) 0.5 mg, Oral, 2 times daily biotin 96983 MCG tablet 1 tablet, Oral, 2 times daily buPROPion (Wellbutrin) 75 MG tablet TAKE 1 TABLET BY MOUTH IN THE MORNING WITH THE 300 MG TABLET TO EQUAL 375 MG DAILY buPROPion XL (WELLBUTRIN XL) 300 mg, Oral, Daily busPIRone (BUSPAR) 30 mg, Oral, 3 times daily cyanocobalamin (VITAMIN B-12) 1,000 mcg, Oral, Daily RT divalproex (DEPAKOTE) 1,000 mg, Oral, Nightly furosemide (LASIX) 20 mg, Oral, Daily Ginkgo 60 MG tablet Oral, Daily hydrOXYzine HCl (ATARAX) 25 mg, Oral, 3 times daily PRN lisinopril 5 mg, Oral, Daily Memantine HCl ER 28 mg, Oral, Nightly Multiple Vitamins-Minerals (CENTRUM SILVER PO) Oral, Daily paliperidone (Invega) 6 MG 24 hr tablet 2 tablets, Oral, Every morning potassium chloride CR (KLOR-CON) 10 MEQ ER tablet 10 mEq, Oral, Daily QUEtiapine (SEROQUEL) 25 mg, Oral, 2 times daily, 25 mg in afternoon and 50 mg at bedtime rOPINIRole (REQUIP) 1 mg, Oral, 3 times daily rOPINIRole (REQUIP) 0.5 mg, Oral, 3 times daily sertraline (Zoloft) 100 MG tablet take 2 tablets by mouth once daily traZODone (DESYREL) 150 mg, Oral, Nightly Allergies Allergen Reactions Amantadine Other Reaction(s): dizzy, wobbly, effected walking Benztropine Other Reaction(s): Unsteady,dizzy Codeine Nausea Only Other Reaction(s): nausea Oxycodone-Acetaminophen There are no discontinued medications. PAST MEDICAL HISTORY: SURGICAL/SOCIAL/FAMILY HISTORY DEPRESSION SCREEN: Past Medical History: Diagnosis Date Anxiety Depressive disorder ([facility]) not elsewhere classified Esophageal polyp lower esophagus History of being hospitalized 04/2020 anxiety and depression History of psychiatric hospitalization (10/05 - 10/23/2014) - [facility] - Psych Unit Hypertension ([facility]/HCC) Past Surgical History: Procedure Laterality Date ESOPHAGOGASTRODUODENOSCOPY 2004 with biopsy - for lower esophageal polyp KNEE SURGERY NOSE SURGERY OTHER SURGICAL HISTORY ear TYMPANOPLASTY 1996 Mastoid Social History Tobacco Use Smoking status: Former Types: Cigarettes, Pipe Quit date: 2013 Years since quittin.9 Passive exposure: Past Smokeless tobacco: Never Substance Use Topics Alcohol use: Defer Comment: Caffeine: coffee, soda, 1-2 cups of 16 oz Coke daily Drug use: Never Family History Problem Relation Name Age of Onset Heart disease Mother Lung disease Mother Pneumonia Father Heart disease Maternal Grandmother Heart disease Maternal Grandfather Depression: At risk (06/11/2023) PHQ-2 PHQ-2 Score: 6 REVIEW OF SYMPTOMS: Review of Systems Constitutional: Negative for chills, diaphoresis, fatigue and fever. HENT: Negative for ear pain, tinnitus and trouble swallowing. Eyes: Negative for photophobia and visual disturbance. Respiratory: Negative for cough and shortness of breath. Cardiovascular: Negative for palpitations and leg swelling. Gastrointestinal: Negative for abdominal pain and nausea. Genitourinary: Negative for difficulty urinating and urgency. Musculoskeletal: Negative for arthralgias, back pain, myalgias, neck pain and neck stiffness. Neurological: Positive for tremors. Negative for weakness, light-headedness and numbness. Psychiatric/Behavioral: Negative for agitation, confusion and suicidal ideas. OBJECTIVE: 02/14/2024 9:07 AM 12/23/2023 11:57 AM 12/01/2023 10:43 AM Vitals BMI 28.63 kg/m2 29.29 kg/m2 29.29 kg/m2 BSA (m2) 2.25 m2 2.28 m2 2.28 m2 Systolic 124 126 122 Diastolic 78 79 66 Heart Rate 82 71 SpO2 96 % Height (in) 6' 1 6' 1 6' 1 Weight (lb) 217 222 222 Visit Report Report Report EXAM: Neurological Exam Mental Status Awake, alert and oriented to person, place and time. Oriented to person, place and time. Recent and remote memory are intact. Speech is normal. Language is fluent with no aphasia. Attention and concentration are normal. Cranial Nerves CN II: Visual acuity is normal. Visual leigh full to confrontation. CN III, IV, : Extraocular movements intact bilaterally. Normal lids and orbits bilaterally. Pupils equal round and reactive to light bilaterally. CN V: Facial sensation is normal. CN VII: Full and symmetric facial movement. CN VIII: Hearing is normal. CN XII: Tongue midline without atrophy or fasciculations. Motor Normal muscle bulk throughout. Normal muscle tone. Right Left Wrist flexion 5 5 Wrist extension 5 5 Right Left Deltoid 5 5 Biceps 5 5 Triceps 5 5 Wrist flexor 5 5 Wrist extensor 5 5 Glutei 5 5 Iliopsoas 5 5 Quadriceps 5 5 Gastrocnemius 5 5 Anterior tibialis 5 5 Posterior tibialis 5 5 Sensory Light touch is normal in upper and lower extremities. Pinprick is normal in upper and lower extremities. Vibration is normal in upper and lower extremities. Reflexes Right Left Brachioradialis 2+ 2+ Biceps 2+ 2+ Patellar 2+ 2+ Achilles 2+ 2+ Right Plantar: downgoing Left Plantar: downgoing Right pathological reflexes: Alfa's absent. Ankle clonus absent. Left pathological reflexes: Alfa's absent. Ankle clonus absent. Coordination Lfoltu-dv-ebhf, rapid alternating movements and cbad-sm-zhbg normal bilaterally without dysmetria. Gait Normal casual, toe, heel and tandem gait. Romberg is absent. PROCEDURE: NONE ASSESSMENT AND PLAN: Nancy Magdaleno is a 63 year old male who presents with tremor in both hands. Possible etiologies include benign essential tremor, extrapyramidal symptoms secondary to medications, or a neurodegenerative process such as Parkinson's disease. An additional consideration would be tremor secondary to a metabolic process or a psychogenic tremor from stress. He also presents with cognitive difficulty possibly due to a neurodegenerative process such as Alzheimer's disease or vascular dementia. Other considerations would be pseudodementia secondary to depression or an underlying sleep disorder. Diagnoses and all orders for this visit: MCI (mild cognitive impairment) Continue Memantine HCl ER 28 MG capsule sustained-release 24 hr; Take 28 mg by mouth at bedtime Start thiamine (Vitamin B-1) 100 MG tablet; Take 1 tablet (100 mg) by mouth Daily which is great for overall brain and nerve nutrition. Continue rOPINIRole (Requip) 0.5 MG tablet TID and 1 mg TID for tremors. I counseled the patient on the possible side effects and interactions of medications. Consider trial on Speech with swallow eval Follow up 3 months. documented in this encounter [facility] 12-23-2023 History of Presen t illness Narrative Patient: Nancy Magdaleno : 1960 PCP: DO JUSTIN Bangura This is a 63 y.o. male that presents today with a CC of elongated, thick nails. Pt states nails have been elongated and thick for many years and cause pain with ambulation in shoegear. Pt has tried previous treatment with minimal relief. Pt presents today for nail care and treatment. Pt also has history of venous stasis to b/l lower extremities. Allergies: Allergies Allergen Reactions Amantadine Other Reaction(s): dizzy, wobbly, effected walking Benztropine Other Reaction(s): Unsteady,dizzy Codeine Nausea Only Other Reaction(s): nausea Oxycodone-Acetaminophen Past Medical History: Past Medical History: Diagnosis Date Anxiety Depressive disorder ([facility]) not elsewhere classified Esophageal polyp lower esophagus History of being hospitalized 04/2020 anxiety and depression History of psychiatric hospitalization (10/05 - 10/23/2014) - [facility] - Psych Unit Hypertension ([facility]) Medications: Current Outpatient Medications: atorvastatin (Lipitor) 40 MG tablet, Take 1 tablet (40 mg) by mouth at bedtime, Disp: 30 tablet, Rfl: 11 benztropine (Cogentin) 0.5 MG tablet, Take 0.5 mg by mouth in the morning and 0.5 mg before bedtime., Disp: , Rfl: biotin 25577 MCG tablet, Take 1 tablet by mouth in the morning and 1 tablet before bedtime., Disp: , Rfl: buPROPion (Wellbutrin) 75 MG tablet, TAKE 1 TABLET BY MOUTH IN THE MORNING WITH THE 300 MG TABLET TO EQUAL 375 MG DAILY, Disp: , Rfl: buPROPion XL (Wellbutrin XL) 300 MG 24 hr tablet, Take 300 mg by mouth in the morning., Disp: , Rfl: busPIRone (Buspar) 30 MG tablet, Take 30 mg by mouth in the morning and 30 mg in the evening and 30 mg before bedtime., Disp: , Rfl: cyanocobalamin (Vitamin B-12) 1000 MCG tablet, Take 1,000 mcg by mouth in the morning., Disp: , Rfl: divalproex (Depakote) 500 MG EC tablet, Take 1,000 mg by mouth at bedtime, Disp: , Rfl: furosemide (Lasix) 20 MG tablet, Take 1 tablet (20 mg) by mouth Daily (Patient taking differently: Take 20 mg by mouth Daily Take 2 tablets if needed.), Disp: 90 tablet, Rfl: 3 Ginkgo 60 MG tablet, Take by mouth Daily., Disp: , Rfl: hydrOXYzine HCl (Atarax) 25 MG tablet, Take 25 mg by mouth 3 (three) times a day as needed for anxiety, Disp: , Rfl: lisinopril 5 MG tablet, Take 1 tablet (5 mg) by mouth Daily, Disp: 90 tablet, Rfl: 3 Memantine HCl ER 28 MG capsule sustained-release 24 hr, Take 28 mg by mouth at bedtime, Disp: 30 capsule, Rfl: 11 Multiple Vitamins-Minerals (CENTRUM SILVER PO), Take by mouth Daily., Disp: , Rfl: paliperidone (Invega) 6 MG 24 hr tablet, Take 2 tablets by mouth in the morning., Disp: , Rfl: potassium chloride CR (KLOR-CON) 10 MEQ ER tablet, Take 1 tablet (10 mEq) by mouth Daily, Disp: 90 tablet, Rfl: 3 QUEtiapine (SEROquel) 25 MG tablet, Take 25 mg by mouth in the morning and 25 mg before bedtime. 25 mg in afternoon and 50 mg at bedtime., Disp: , Rfl: rOPINIRole (Requip) 0.5 MG tablet, Take 1 tablet (0.5 mg) by mouth in the morning and 1 tablet (0.5 mg) in the evening and 1 tablet (0.5 mg) before bedtime., Disp: 90 tablet, Rfl: 11 rOPINIRole (Requip) 1 MG tablet, Take 1 tablet (1 mg) by mouth in the morning and 1 tablet (1 mg) in the evening and 1 tablet (1 mg) before bedtime., Disp: 270 tablet, Rfl: 3 sertraline (Zoloft) 100 MG tablet, take 2 tablets by mouth once daily, Disp: , Rfl: traZODone (Desyrel) 100 MG tablet, Take 150 mg by mouth at bedtime, Disp: , Rfl: Social History: Social History Socioeconomic History Marital status: Spouse name: Not on file Number of children: Not on file Years of education: Not on file Highest education level: Not on file Occupational History Not on file Tobacco Use Smoking status: Former Types: Cigarettes, Pipe Quit date: 2013 Years since quittin.8 Passive exposure: Past Smokeless tobacco: Never Substance and Sexual Activity Alcohol use: Defer Comment: Caffeine: coffee, soda, 1-2 cups of 16 oz Coke daily Drug use: Never Sexual activity: Not on file Other Topics Concern Not on file Social History Narrative Not on file Social Drivers of Health Financial Resource Strain: Not on file Food Insecurity: Not on file Transportation Needs: Not on file Physical Activity: Not on file Stress: Not on file Social Connections: Not on file Intimate Partner Violence: Not on file Housing Stability: Not on file ROS: General: denies fever, chills, fatigue, malaise Cardiovascular: denies CP, palpitations, irregular rhythms OBJECTIVE LE EXAM: DERM: Elongated thick yellow crumbly nails digits 1 through 10. Diminished hair growth b/l feet. Plus two pitting edema to bilateral ankles VASC: Positive palpable pedal pulses bilaterally NEURO: Gross sensation intact to bilateral feet ORTHO: Positive pain on palpation to nails 1 through 10 Negative pain on palpation to bilateral calf regions ASSESSMENT 1. Pain due to onychomycosis of toenails of both feet 2. Venous insufficiency of both lower extremities PLAN Discussed proper foot care with patient today. Debride nails in length and thickness digits 1 through 10 Visit spent with patient education on condition and treatment of condition. Continue with elevation of feet while nonweightbearing Oj Mcgrath DPM documented in this encounter [facility] 11-08-2023 History of Presen t illness Narrative Images from the original note were not included. CHIEF COMPLAINT REASON FOR VISIT : Parkinsons' tremors, memory, insomnia. HPI: Nancy Magdaleno is a 63 y.o. male who presents for a follow up. Patient states that with the increase of the memantine 28 mg he has not noticed any improvement. Spouse agrees. He states he has been sleeping normal. He states he does still have the shakiness mainly on the left side. But it has remained the same no worsening. He is ambulating with a walker. He states his balance has been a little more off and he has been shuffling his feet more. He did have a fall a few weeks ago. States he has been having more difficulty with swallowing when he is eating or drinking. He has been choking a little bit more. Denies any other concerns. CURRENT MEDICATIONS: ALLERGIES/DISCONTINUE MEDICATIONS Current Outpatient Medications Medication Instructions aspirin 81 mg, Oral, Daily atorvastatin (LIPITOR) 40 mg, Oral, Nightly benztropine (COGENTIN) 0.5 mg, Oral, 2 times daily biotin 10 MG capsule take 1 capsule by mouth every morning and at bedtime buPROPion (Wellbutrin) 75 MG tablet TAKE 1 TABLET BY MOUTH IN THE MORNING WITH THE 300 MG TABLET TO EQUAL 375 MG DAILY buPROPion XL (WELLBUTRIN XL) 300 mg, Oral, Daily busPIRone (BUSPAR) 30 mg, Oral, 3 times daily cyanocobalamin (VITAMIN B-12) 1,000 mcg, Oral, Daily RT divalproex (DEPAKOTE) 500 mg, Oral, 2 times daily furosemide (LASIX) 20 mg, Oral, Daily Ginkgo 60 MG tablet Oral, Daily hydrOXYzine HCl (ATARAX) 25 mg, Oral, 3 times daily PRN lisinopril 5 mg, Oral, Daily Memantine HCl ER 28 mg, Oral, Nightly Multiple Vitamins-Minerals (CENTRUM SILVER PO) Oral, Daily paliperidone (Invega) 6 MG 24 hr tablet 2 tablets, Oral, Every morning potassium chloride CR (KLOR-CON) 10 MEQ ER tablet 10 mEq, Oral, Daily QUEtiapine (SEROQUEL) 25 mg, Oral, 3 times daily rOPINIRole (REQUIP) 0.25 mg, Oral, 3 times daily rOPINIRole (REQUIP) 1 mg, Oral, 3 times daily sertraline (Zoloft) 100 MG tablet take 2 tablets by mouth once daily traZODone (DESYREL) 150 mg, Oral, Nightly Allergies Allergen Reactions Amantadine Other Reaction(s): dizzy, wobbly, effected walking Benztropine Other Reaction(s): Unsteady,dizzy Codeine Nausea Only Other Reaction(s): nausea Oxycodone-Acetaminophen There are no discontinued medications. PAST MEDICAL HISTORY: SURGICAL/SOCIAL/FAMILY HISTORY DEPRESSION SCREEN: Past Medical History: Diagnosis Date Anxiety Depressive disorder ([facility]) not elsewhere classified Esophageal polyp lower esophagus History of being hospitalized 04/2020 anxiety and depression History of psychiatric hospitalization (10/05 - 10/23/2014) - [facility] - Psych Unit Hypertension ([facility]) Past Surgical History: Procedure Laterality Date ESOPHAGOGASTRODUODENOSCOPY 2004 with biopsy - for lower esophageal polyp KNEE SURGERY NOSE SURGERY OTHER SURGICAL HISTORY ear TYMPANOPLASTY 1995 Mastoid Social History Tobacco Use Smoking status: Former Types: Cigarettes, Pipe Quit date: 2013 Years since quittin.6 Passive exposure: Past Smokeless tobacco: Never Substance Use Topics Alcohol use: Defer Comment: Caffeine: coffee, soda, 1-2 cups of 16 oz Coke daily Drug use: Never Family History Problem Relation Name Age of Onset Heart disease Mother Lung disease Mother Pneumonia Father Heart disease Maternal Grandmother Heart disease Maternal Grandfather Depression: At risk (06/11/2023) PHQ-2 PHQ-2 Score: 6 REVIEW OF SYMPTOMS: Review of Systems Constitutional: Negative for chills, diaphoresis, fatigue and fever. HENT: Positive for trouble swallowing. Negative for ear pain and tinnitus. Eyes: Negative for photophobia and visual disturbance. Respiratory: Negative for cough and shortness of breath. Cardiovascular: Negative for palpitations and leg swelling. Gastrointestinal: Negative for abdominal pain and nausea. Genitourinary: Negative for difficulty urinating and urgency. Musculoskeletal: Positive for gait problem. Negative for arthralgias, back pain, myalgias, neck pain and neck stiffness. Neurological: Negative for tremors, weakness, light-headedness and numbness. Psychiatric/Behavioral: Negative for agitation, confusion and suicidal ideas. OBJECTIVE: 11/08/2023 9:02 AM 10/14/2023 11:07 AM 07/28/2023 10:07 AM Vitals BMI 29.69 kg/m2 30.34 kg/m2 32.46 kg/m2 BSA (m2) 2.29 m2 2.31 m2 2.23 m2 Systolic 136 130 148 Diastolic 84 82 93 Heart Rate 75 Resp 18 Height (in) 6' 1 6' 1 5' 9.5 Weight (lb) 225 230 223 Visit Report Report Report Report EXAM: Neurological Exam Mental Status Awake, alert and oriented to person, place and time. Oriented to person, place and time. Recent and remote memory are intact. Speech is normal. Language is fluent with no aphasia. Attention and concentration are normal. Cranial Nerves CN II: Visual acuity is normal. Visual leigh full to confrontation. CN III, IV, : Extraocular movements intact bilaterally. Normal lids and orbits bilaterally. Pupils equal round and reactive to light bilaterally. CN V: Facial sensation is normal. CN VII: Full and symmetric facial movement. CN VIII: Hearing is normal. CN XII: Tongue midline without atrophy or fasciculations. Motor Normal muscle bulk throughout. Normal muscle tone. Right Left Wrist flexion 5 5 Wrist extension 5 5 Right Left Deltoid 5 5 Biceps 5 5 Triceps 5 5 Wrist flexor 5 5 Wrist extensor 5 5 Glutei 5 5 Iliopsoas 5 5 Quadriceps 5 5 Gastrocnemius 5 5 Anterior tibialis 5 5 Posterior tibialis 5 5 Sensory Light touch is normal in upper and lower extremities. Pinprick is normal in upper and lower extremities. Vibration is normal in upper and lower extremities. Reflexes Right Left Brachioradialis 2+ 2+ Biceps 2+ 2+ Patellar 2+ 2+ Achilles 2+ 2+ Right Plantar: downgoing Left Plantar: downgoing Right pathological reflexes: Alfa's absent. Ankle clonus absent. Left pathological reflexes: Alfa's absent. Ankle clonus absent. Coordination Ntqpcy-ec-imdo, rapid alternating movements and bouj-kp-lotm normal bilaterally without dysmetria. Gait Normal casual, toe, heel and tandem gait. Romberg is absent. PROCEDURE: NONE ASSESSMENT AND PLAN: Diagnoses and all orders for this visit: Primary parkinsonism (CMS/HCC) Tremor Continue rOPINIRole (Requip) 0.5 MG tablet; Take 1 tablet (0.5 mg) by mouth in the morning and 1 tablet (0.5 mg) in the evening and 1 tablet (0.5 mg) before bedtime. I counseled the patient on the possible side effects and interactions of medications. PT Consider trial on Speech with swallow eval Follow up 3 months. documented in this encounter [facility] 04-01-2023 Telephone encounter Note Received request from pharmacy for qty of 60 as taking twice a day and was only sent for 15 day supply. [facility] 04-01-2023 Miscellaneous Notes Received request from pharmacy for qty of 60 as taking twice a day and was only sent for 15 day supply. documented in this encounter [facility] 04-30-2022 Discharge summary Note Date/Time April 30, 2022 10:14am [facility] [address] [place] [address] Discharge Summary Signed Patient: Nancy Magdaleno MR#: [id number] : 1960 Acct:[id number] Age/Sex: 62 / M Adm Date: 3 Loc: 1S Room: 0B9538-[address]: Jose Ramos MD Copies to: MD Jose Napoles MD Farrukh Lyric OliveiraTarik,DO~ Providers Date of Discharge: 04/30/22 Discharging Provider: Derek Luciano Primary Care Provider: Farrukh Ng Discharge Diagnosis (1) Bipolar disorder: Final Diagnosis Final Discharge Diagnosis: Bipolar disorder Summary Hospital Course Hospital course: Mr. Magdaleno is a 62 year old male who presented due to concern for auditory hallucinations. Upon assessment, patient reported that his hallucinations have been worsening.? He stated that they tell him to do things and that he is a prisoner and cannot watch television.? He reported that they also tell him to walk and he has a hardtime sitting still.? He reported that he has been sleeping okay and appetite hasbeen okay.? He reported med compliance when he was at home.? He denied any changes in his health.? He denied any visual loose Nations at this time. Past psych history: Bipolar, SI, anxiety, MDD Past hospitalizations: History past psychiatric hospitalizations, most recently in 2020 Past suicide attempts: 1 attempt in the past by cutting Alcohol and drug use: Denied any significant issues Living: With family Review of symptoms: Constitutional: Denies chills and Denies fever(s) Eyes: Denies change in vision ENT: Denies abnormal hearing Cardiovascular: Denies chest pain Respiratory: Denies chest congestion and Denies cough Gastrointestinal: Denies change in bowel habits Genitourinary: Denies dysuria Musculoskeletal: Denies atrophy and Denies myalgias Integumentary/Breasts: Denies dry skin Neurologic: Denies abnormal gait and Denies abnormal movements Psychiatric: Reports hallucinations Patient presented initially with symptoms of psychosis. He reports auditory loose Nations but denied any commanding in nature. He reports compliance with medications since his discharge from the hospital. His medication regimen was continued and Invega was increased to 9 mg p.o. nightly. He reports improvementof his psychotic symptoms and noted a better mood. He is not internally stimulated on exam. We discussed importance of med compliance. Anxiety is moderate in intensity with attempted utilization of coping skills. He denies SI/HI and verbalized the intent to notify staff if he has such thoughts. He continues to be compliant with prescribed medications and is visible within the unit milieu. He was offered long-acting injectable Invega Sustenna but he declined. He states his told him not to take it due to worrying about insurance costs. We have agreed to continue the current medications regimen. Risks, benefits, andindications of medications were discussed. Appearance: dressed casually Mental Status: mental status grossly normal Mood: Euthymic mood Affect: Normal affect Speech and Movement: speech and movement normal and speech clear Attitude: cooperative Thought Process: normal Thought Content: Denied hallucinations, no homicidality and no suicidality Insight: fair Judgment: fair Impulse control: fair Discharge disposition Home with his . Time spent discussing smoking cessation with patient: more than 10 minutes Condition Condition at Discharge: Fair Status at Discharge Functional status at discharge: independent ambulation Time Spent with Patient Time spent providing/coordinating discharge services (# min): 88 Exam Physical Exam Vital Signs: Temp Pulse Resp BP Pulse Ox O2 Del Method 97.5 F L 88 17 93/63 L 96 Room Air 04/30/22 07:30 04/30/22 07:30 04/30/22 07:30 04/30/22 07:30 04/30/22 07:30 04/30/22 08:57 Discharge Plan Discharge Plan Patient Disposition: Home Activity: No Activity Restriction Diet: Regular Additional Instructions: Regular Diet No Activity Restrictions Instructions: Acute Psychosis (DC), [facility] [place] Instructions Prescriptions: New quetiapine 25 mg Tablet 25 mg PO BID 15 Days Qty: 30 1RF benztropine 0.5 mg Tablet 0.25 mg PO BID 30 Days Qty: 30 1RF paliperidone 3 mg Tablet Extended Release 24 Hr 9 mg PO DAILY 15 Days Qty: 45 1RF Continued bupropion HCl [Wellbutrin XL] 300 mg tablet extended release 24 hr 300 mg PO DAILY Patient Comments: take 1 tablet by mouth every morning trazodone 100 mg tablet 300 mg PO QHS Patient Comments: take 1 to 1 AND 1/2 tablets by mouth at bedtime for sleep lisinopril 5 mg tablet 5 mg PO DAILY Patient Comments: take 1 tablet by mouth once daily biotin 10,000 mcg capsule 10,000 mcg PO BID Patient Comments: take 1 capsule by mouth twice a day cholecalciferol (vitamin D3) [Vitamin D3] 25 mcg (1,000 unit) Capsule 25 mcg PO DAILY bupropion HCl 75 mg tablet 75 mg PO DAILY Patient Comments: take 1 tablet by mouth every morning WITH THE 300 MG TABLET TO TOTAL 375MG DAILY divalproex 500 mg tablet,delayed release (DR/EC) 500 mg PO BID ropinirole 0.5 mg tablet 0.5 mg PO TID Patient Comments: take 1 tablet by mouth three times a day buspirone 30 mg tablet 30 mg PO 3XD Patient Comments: take 1 tablet by mouth three times a day benztropine 0.5 mg tablet 0.25 mg PO BID Patient Comments: TAKE 1/2 TABLET BY MOUTH TWICE A DAY cyanocobalamin (vitamin B-12) [Vitamin B-12] 1,000 mcg Tablet Extended Release 1,000 mcg PO DAILY atorvastatin 20 mg Tablet 40 mg PO DAILY Rx Instructions: take at bedtime sertraline 100 mg Tablet 200 mg PO DAILY Centrum Silver 0.4-300-250 mg-mcg-mcg Tablet 1 tab PO DAILY aspirin 81 mg Tablet,Delayed Release (Dr/Ec) 81 mg PO DAILY calcium carbonate-vitamin D3 600 mg(1,500mg) -400 unit Tablet 1 tab PO BID Discontinued paliperidone [Invega] 1.5 mg Tablet Extended Release 24 Hr 1.5 mg PO QAM Rx Instructions: Take with 6mg dose to equal 7.5mg. paliperidone 6 mg tablet extended release 24 hr 6 mg PO DAILY Rx Instructions: Take with 1.5mg to equal 7.5mg. Follow Up: [facility] [Outside] [facility] [Outside] Farrukh Ng DO [Primary Care Provider] - 3-5 Days Documented By: Tristan Luciano MD 3 [id number] Signed By: <Electronically signed by Tristan Luciano MD> 04/30/22 1014 [facility] Work Phone: 1(616) 769-623303-01-2023 Progress note Author Tristan figueroa [facility] April 29, 2022 9:58am Note Date/Time April 29, 2022 9:58 am [facility] [address] [place] [address] Psychiatry Progress Note Signed Patient: Nancy Magdaleno MR#: [id number] : 1960 Acct:[id number] Age/Sex: 62 / M Adm Date: 3 Loc: 1S Room: [address] [place] [address] Type : ADM IN Attending Dr: Jose Ramos MD Copies to: ~ Date of Service: 04/29/2022 Subjective Subjective Narrative: No acute changes overnight. Patient states that his anxiety and depression are improving. He feels the current medication regimen is helping with reducing hisracing thoughts and auditory hallucinations. I discussed with him again the benefits of Invega Sustenna, and he said he is willing to take it today. Risks,benefits and indications discusssed. Appearance: grossly normal, calm, normal eye contact, normal appearance Mental Status: mental status grossly normal Mood: Improving mood Affect: constricted affect Speech and Movement: speech and movement normal and speech clear Attitude: cooperative Thought Process: normal Thought Content: Reported improving auditory hallucinations, no homicidality, nosuicidality Insight: fair Judgment: fair Exam Physical Exam Vital Signs: Temp Pulse Resp BP Pulse Ox O2 Del Method 98.1 F 85 16 136/76 98 Room Air 04/29/22 07:30 04/29/22 07:30 04/29/22 07:30 04/29/22 07:30 04/29/22 07:30 04/29/22 07:30 Assessment/Plan Assessment/Plan (1) Bipolar disorder: Code(s): F31.9 - Bipolar disorder, unspecified Status: Acute Plan Patient reported that things have been improving. He said he is open Invega sustenna 234 mg IM. Continue Invega 9 mg, and Seroquel 25 mg twice a day Continue Requip 0.5 mg 3 times a day, Zoloft 100 mg daily, Depakote 500 mg twicea day, BuSpar 30 mg 3 times a day, Wellbutrin 300 mg daily and 75 mg of immediate release. Most recent Depakote 44.1. Encourage group participation and medication compliance Risk benefits alternatives explained Documented By: Tristan Luciano MD 3 [id number] Signed By: <Electronically signed by Tristan Luciano MD> 04/29/22 0958 [facility] Work Phone: 1(357) 172-308702-28-2023 Progress note Author Tristan figueroa [facility] April 28, 2022 8:12am Note Date/Time April 28, 2022 8:12am [facility] [address] [place] [address] Psychiatry Progress Note Signed Patient: Nancy Magdaleno MR#: [id number] : 1960 Acct:[id number] Age/Sex: 62 / M Adm Date: 3 Loc: Room: [address] [place] [address] Type : ADM IN Attending Dr: Jose Ramos MD Copies to: ~ Date of Service: 04/28/2022 Subjective Subjective Narrative: No acute changes overnight. Patient states that his anxiety and depression are both a 4 out of 10. Patient is denying any suicidal or homicidal thoughts at this time. He denies any auditory or visual hallucinations. He said he does notwant to take Invega sustenna. He states that when he is discharged he will be with his . States that she has a good support system and he feels safe at home. Stated that he would be open to receiving long-acting injectable. I discussed with him starting Invega Sustenna 234 mg IM first dose tomorrow. Mental Status Exam: Appearance: grossly normal, calm, normal eye contact, normal appearance Mental Status: mental status grossly normal Mood: Improving mood Affect: constricted affect Speech and Movement: speech and movement normal and speech clear Attitude: cooperative Thought Process: normal Thought Content: Reported improving auditory hallucinations, no homicidality, nosuicidality Insight: fair Judgment: fair Exam Physical Exam Vital Signs: Temp Pulse Resp BP Pulse Ox O2 Del Method 97.9 F 77 16 114/72 94 L Room Air 04/28/22 07:30 04/28/22 07:30 04/28/22 07:30 04/28/22 07:30 04/28/22 07:30 04/28/22 07:30 Assessment/Plan Assessment/Plan (1) Bipolar disorder: Code(s): F31.9 - Bipolar disorder, unspecified Status: Acute Plan Patient reported that things have been improving. He refused Invega sustenna 234mg IM. He prefers oral tablet. Continue Invega 9 mg, and Seroquel 25 mg twice a day Continue Requip 0.5 mg 3 times a day, Zoloft 100 mg daily, Depakote 500 mg twicea day, BuSpar 30 mg 3 times a day, Wellbutrin 300 mg daily and 75 mg of immediate release. Most recent Depakote 44.1. Encourage group participation and medication compliance Risk benefits alternatives explained Documented By: Tristan Luciano MD 3 [id number] Signed By: <Electronically signed by Tristan Luciano MD> 04/28/22 0812 [facility] Work Phone: 1(503) 396-713302-27-2023 Progress note Author Tristan figueroa [facility] April 27, 2022 9:25am Note Date/Time April 27, 2022 8:01am [facility] [address] [place] [address] Psychiatry Progress Note Signed Patient: Nancy Magdaleno MR#: [id number] : 1960 Acct:[id number] Age/Sex: 62 / M Adm Date: 3 Loc: Room: [address] [place] [address] Type : ADM IN Attending Dr: Jose Ramos MD Copies to: ~ Date of Service: 04/27/2022 Subjective Subjective Narrative: No acute changes overnight. Patient states that his anxiety and depression are both a 4 out of 10. Patient is denying any suicidal or homicidal thoughts at this time. He denies any auditory or visual hallucinations. Patient states that he slept good and his appetite is okay at this time. He denies any side effects from his medications. Patient denies racing thoughts as well. He states that he is going to group and it has been helpful. Patient was personally seen by me on the day of the encounter. I reviewed the history and performed the roth elements of the assessment. I formulated the planof care and confirmed this with the Resident as noted below Patient states that he feels he is well enough to go home soon. He states that when he is discharged he will be with his . States that she has a good support system and he feels safe at home. Stated that he would be open to receiving long-acting injectable. I discussed with him starting Invega [id number] mg IM first dose tomorrow. Mental Status Exam: Appearance: grossly normal, calm, normal eye contact, normal appearance Mental Status: mental status grossly normal Mood: Improving mood, dysthymic Affect: Slightly constricted affect Speech and Movement: speech and movement normal and speech clear Attitude: cooperative Thought Process: normal Thought Content: Reported improving auditory hallucinations, no homicidality, nosuicidality Insight: fair Judgment: fair Exam Physical Exam Vital Signs: Temp Pulse Resp BP Pulse Ox O2 Del Method 97.7 F 84 18 105/73 96 Room Air 04/26/22 19:45 04/26/22 19:45 04/26/22 19:45 04/26/22 19:45 04/26/22 19:45 04/26/22 19:45 Assessment/Plan Assessment/Plan (1) Bipolar disorder: Code(s): F31.9 - Bipolar disorder, unspecified Status: Acute Plan Mr. Magdaleno is a 62-year-old male with a past medical history of bipolar disorder, suicidal ideation, anxiety, and major depressive disorder who presentswith worsening auditory hallucinations. Patient reported that things have been improving. Will intiate Invega sustenna 234 mg IM, first dose tomorrow on Apr 28 2022 Continue Invega 9 mg, and Seroquel 25 mg twice a day Continue Requip 0.5 mg 3 times a day, Zoloft 100 mg daily, Depakote 500 mg twicea day, BuSpar 30 mg 3 times a day, Wellbutrin 300 mg daily and 75 mg of immediate release. Most recent Depakote 44.1 Encourage group participation and medication compliance Risk benefits alternatives explained Documented By: Tristan Luciano MD 3 [id number] Signed By: <Electronically signed by Tristan Luciano MD> 04/27/22 0972 [facility] Work Phone: 1(761) 799-611502-26-2023 Progress note Author Jose Ramos [facility] April 26, 2022 11:32am Note Date/Time April 26, 2022 11:32am [facility] [address] [place] [address] Psychiatry Progress Note Signed Patient: Nancy Magdaleno MR#: [id number] : 1960 Acct:[id number] Age/Sex: 62 / M Adm Date: 3 Loc: 1S Room: [address] [place] [address] Type : ADM IN Attending Dr: Jose Ramos MD Copies to: ~ Date of Service: 04/26/2022 Subjective Subjective Narrative: Mr. Magdaleno reported that he is doing better. He reported that the medication has been working well for him. He denied any side effects at this time. He reported that he slept okay but had to wake up to use the bathroom. His auditory hallucinations he reported have been improving. Mental Status Exam: Appearance: grossly normal Mental Status: mental status grossly normal Mood: Improving mood Affect: Slightly constricted affect Speech and Movement: speech and movement normal and speech clear Attitude: cooperative Thought Process: normal Thought Content: Reported improving auditory hallucinations, no homicidality, nosuicidality Insight: fair Judgment: fair Exam Physical Exam Vital Signs: Temp Pulse Resp BP Pulse Ox O2 Del Method 97.6 F 76 16 115/78 97 Room Air 04/26/22 07:30 04/26/22 07:30 04/26/22 07:30 04/26/22 07:30 04/26/22 07:30 04/26/22 07:30 Assessment/Plan Assessment/Plan (1) Bipolar disorder: Code(s): F31.9 - Bipolar disorder, unspecified Status: Acute Plan Patient reported that things have been improving Continue Invega 9 mg, and Seroquel 25 mg twice a day Continue Requip 0.5 mg 3 times a day, Zoloft 100 mg daily, Depakote 500 mg twicea day, BuSpar 30 mg 3 times a day, Wellbutrin 300 mg daily and 75 mg of immediate release. Continue to monitor mental status Encourage group participation and medication compliance Risk benefits alternatives explained Documented By: Jose Ramos MD 04/26/221130 Signed By: <Electronically signed by Jose Ramos MD> 04/26/221131 [facility] Work Phone: 1([phone] History and physical note Author Jose Ramos [facility] April 25, 2022 11:12am Note Date/Time April 25, 2022 11:12am [facility] [address] [place] [address] Psychiatry H&P Signed Patient: Nancy Magdaleno MR#: [id number] : 1960 Acct:[id number] Age/Sex: 62 / M Adm Date: 3 Loc: 1S Room: 9F7046-8 Type: ADM IN Attending Dr: Jose Ramos MD Copies to: MD Farrukh Pham,~ Date of Service: 04/25/2022 HPI History of Present Illness History of present illness: Mr. Magdaleno is a 62 year old male who presented due to concern for auditory hallucinations. Upon assessment, patient reported that his hallucinations have been worsening. He stated that they tell him to do things and that he is a prisoner and cannot watch television. He reported that they also tell him to walk and he has a hardtime sitting still. He reported that he has been sleeping okay and appetite hasbeen okay. He reported med compliance when he was at home. He denied any changes in his health. He denied any visual loose Nations at this time. Past psych history: Bipolar, SI, anxiety, MDD Past hospitalizations: History past psychiatric hospitalizations, most recently in 2020 Past suicide attempts: 1 attempt in the past by cutting Alcohol and drug use: Denied any significant issues Living: With family Review of symptoms: Constitutional: Denies chills and Denies fever(s) Eyes: Denies change in vision ENT: Denies abnormal hearing Cardiovascular: Denies chest pain Respiratory: Denies chest congestion and Denies cough Gastrointestinal: Denies change in bowel habits Genitourinary: Denies dysuria Musculoskeletal: Denies atrophy and Denies myalgias Integumentary/Breasts: Denies dry skin Neurologic: Denies abnormal gait and Denies abnormal movements Psychiatric: Reports hallucinations Physical exam: Const: cooperative Nutritional Appearance: average body habitus Orientation: alert, awake and oriented x3 HEENT: Head normal to inspection, hearing grossly normal bilaterally, external nose normal, face symmetric Eyes: appearance normal, both eyes and all related structures, sclerae normal Neck: normal visual inspection and full ROM Resp: normal respiratory effort, able to speak in complete sentences and symmetric chest movement Cardio: regular rate GI: normal to inspection and non-distended : deferred Skin: no rashes or lesions noted Neuro: CNII: Visual leigh intact, CNIII,IV,: EOM intact, no nystagmus. Pupilsequal, round, reactive to light and accommodation, CNV: Sensation intact to light touch, CNVII: Raises eyebrows, smile/frown, puff out cheeks symmetrically, CNVIII: Hearing intact bilaterally, CNIX,X: Voice normal, soft palate elevation normal, symmetrical, CNXI: Shoulder shrug strong, equal bilaterally, CNXII: Tongue protrusion midline, movement symmetrical. Extrem: normal to inspection and full ROM Mental Status Exam: Appearance: grossly normal Mental Status: mental status grossly normal Mood: dysthymic mood Affect: dysphoric affect Speech and Movement: speech and movement normal and speech clear Attitude: cooperative Thought Process: normal Thought Content: Reported auditory hallucinations, no homicidality, no suicidality Insight: fair Judgment: fair PMFSH Vaccinated for COVID-19?: Yes Medical History Anxiety Bipolar disorder Depression Hypercholesterolemia Surgical History H/O arthroscopic knee surgery bilateral History of ear surgery History of nasal surgery History of tonsillectomy Family History Mother Myocardial infarction Father Parkinsons Myocardial infarction Other Pneumonia Social History Smoking Status: Former smoker Tobacco Type: pipe Substance Use Type: None Substance Abuse Comment: OCC Meds Medications and Allergies Allergies oxycodone [From Percocet] Adverse Reaction (Verified 04/24/22 12:12) Nausea Home Medications atorvastatin 20 mg tablet 40 mg PO DAILY 04/18/18 [History Confirmed 04/24/22] cyanocobalamin (vitamin B-12) 1,000 mcg tablet,extended release (Vitamin B-12 ER) 1,000 mcg PO DAILY 04/18/18 [History Confirmed 04/24/22] emltcynz-iej-vcrnm acid 0.4 mg-lycopene 300 mcg-lutein 250 mcg tablet (Centrum Silver) 1 tab PO DAILY 04/18/18 [History Confirmed 04/24/22] sertraline 100 mg tablet 200 mg PO DAILY 04/18/18 [History Confirmed 04/24/22] aspirin 81 mg tablet,delayed release 81 mg PO DAILY 05/08/20 [History Confirmed 04/24/22] calcium carbonate 600 mg-vitamin D3 10 mcg (400 unit) tablet 1 tab PO BID 05/08/20 [History Confirmed 04/24/22] bupropion HCl 300 mg 24 hr tablet, extended release (Wellbutrin XL) 300 mg PO DAILY 08/13/20 [History Confirmed 04/24/22] lisinopril 5 mg tablet 5 mg PO DAILY 10/14/20 [History Confirmed 04/24/22] trazodone 100 mg tablet 300 mg PO QHS 10/14/20 [History Confirmed 04/24/22] biotin 10,000 mcg capsule 10,000 mcg PO BID 04/08/22 [History Confirmed 04/24/22] bupropion HCl 75 mg tablet 75 mg PO DAILY 04/08/22 [History Confirmed 04/24/22] cholecalciferol (vitamin D3) 25 mcg (1,000 unit) capsule (Vitamin D3) 25 mcg PO DAILY 04/08/22 [History Confirmed 04/24/22] divalproex 500 mg tablet,delayed release 500 mg PO BID 04/08/22 [History Confirmed 04/24/22] ropinirole 0.5 mg tablet 0.5 mg PO TID 04/08/22 [History Confirmed 04/24/22] benztropine 0.5 mg tablet 0.25 mg PO BID 04/24/22 [History Confirmed 04/24/22] buspirone 30 mg tablet 30 mg PO 3XD 04/24/22 [History Confirmed 04/24/22] paliperidone 1.5 mg tablet,extended release 24 hr (Invega) 1.5 mg PO QAM 04/24/22 [History Confirmed 04/24/22] paliperidone 6 mg tablet,extended release 24 hr 6 mg PO DAILY 04/24/22 [History Confirmed 04/24/22] Exam Physical Exam Vital Signs: Temp Pulse Resp BP Pulse Ox O2 Del Method 98 F 73 16 113/75 93 L Room Air 04/25/22 07:30 04/25/22 07:30 04/25/22 07:30 04/25/22 07:30 04/25/22 07:30 04/25/22 07:30 Results Labs 04/24/22 12:23 04/24/22 12:23 Psychiatry Labs: 02/04/24/22 04/24/22 12:18 12:23 12:23 RBC 4.47 Hgb 14.6 Hct 44.2 MCV 98.7 MCH 32.6 MCHC 33.0 RDW 14.0 Plt Count 144 L MPV 8.4 Sodium 140 Potassium 4.3 Chloride 102 Carbon Dioxide 28.3 Anion Gap 14.0 BUN 25 H Creatinine 0.90 Calcium 9.5 Total Bilirubin 0.6 AST 30 ALT 33 Alkaline Phosphatase 50 Total Protein 6.3 Albumin 3.7 Urine Color Yellow Urine Appearance Clear Urine pH 7.0 Ur Specific [place] 1.023 Urine Protein Negative Urine Glucose (UA) Normal Urine Ketones Trace H Urine Occult Blood Negative Urine Nitrite Negative Ur Leukocyte Esterase Negative Assessment/Plan (1) Bipolar disorder: Code(s): F31.9 - Bipolar disorder, unspecified Status: Acute Plan Patient presenting due to worsening hallucinations that are command in nature We will increase Invega to 9 mg Continue Requip 0.5 mg 3 times a day, Zoloft 100 mg daily, Depakote 500 mg twicea day, BuSpar 30 mg 3 times a day, Wellbutrin 300 mg daily and 75 mg of immediate release. We will add Seroquel 25 mg twice a day to help with hallucinations and discontinue Risperdal Continue to monitor mental status Encourage group participation and medication compliance Risk benefits alternatives explained Documented By: Jose Ramos MD 04/25/221109 Signed By: <Electronically signed by Jose Ramos MD> 04/25/22 1112 [facility] Work Phone: 1(526) 489-207102-15-2023 Discharge summary Author Tristan figueroa [facility] April 15, 2022 9:32am Note Date/Time April 15, 2022 9:30am [facility] [address] [place] [address] Discharge Summary Signed Patient: Nancy Magdaleno MR#: [id number] : 1960 Acct:[id number] Age/Sex: 62 / M Adm Date: 3 Loc: Room: [address] [place] [address]: Jose Ramos MD Copies to: MD Jose Napoles MD Jeffrey A Garman,DO~ Providers Date of Discharge: 04/15/22 Discharging Provider: Derek Luciano Primary Care Provider: Farrukh Ng Discharge Diagnosis (1) Bipolar disorder: Final Diagnosis Final Discharge Diagnosis: Bipolar disorder Summary Hospital Course Hospital course: Mr. Magdaleno is a 62 year old male who presented due to concern for hallucinations. He has reported homicidal thoughts towards a friend due to the voices. Upon assessment, patient reported that he was having auditory hallucinations.? He stated that the voices were telling him to hurt his friend.? They are also telling him that he was a prisoner in his own home and do not watch TV or picker feeder the phone.? He stated that they are telling him to walk nonstop and he fainted because of that.? He stated that his had to come home and found himon the floor.? He reported that the auditory hallucinations have been worsening over the past few weeks.? He stated that the medication has not been helping him.? He denied any suicidal thoughts at this time.? He denied any visual hallucinations. Past psych history: Bipolar, SI, anxiety, MDD Past hospitalizations: History past psychiatric hospitalizations, most recently in 2020 Past suicide attempts: 1 attempt in the past by cutting Alcohol and drug use: Denied any significant issues Living: With family Review of symptoms: Constitutional: Denies chills and Denies fever(s) Eyes: Denies change in vision ENT: Denies abnormal hearing Cardiovascular: Denies chest pain Respiratory: Denies chest congestion and Denies cough Gastrointestinal: Denies change in bowel habits Genitourinary: Denies dysuria Musculoskeletal: Denies atrophy and Denies myalgias Integumentary/Breasts: Denies dry skin Neurologic: Denies abnormal gait and Denies abnormal movements Psychiatric: Reports hallucinations Course of Treatment The patient was familiar with the mental health therapy services available to him while on the unit and was encouraged to participate. He reported mood swings and AH that can be commanding in nature. We discussed medication risks, benefits and indications in details. He was open to trying psychopharmacological treatment. He was started on Invega which was titrated up to 9 mg PO QHS. He felt that his symptoms have improved on the current medication regimen. He has been compliant with treatment and reported no side effects. His sleep and appetite were okay. The patient was attending groups and described them as helpful in building coping skills. He denied any access to firearms or lethal weapons. He had EPS side effects on Invega and therefore we reduced the dose to 7.5 mg POQHS and added Cogentin 0.5 mg PO BIT to help with EPS side effects. He was social with peers on the unit and indicated that he learned a lot to improve hismental health. He felt better than before coming to the hospital and hopeful about his future. He was offered long acting injectable to help with psychosis. After being stabilized on medications, he did not exhibit any disorganized behavior nor appeared to be experiencing auditory hallucinations or expressing delusions. He did not show any behavior concerning for rashida. He said his can pick him up at the time of discharge. He understands the importance of outpatient therapy to ensure the stability of symptoms. He denied suicidal or homicidal ideation and verbalized the intent to notify the staff if he has such thoughts. No suicidal or self-injurious behaviors occurred during inpatient treatment. Most recent Depakote level is 44.1. Patient achieved maximum benefit from attending inpatient treatment and was suitable for outpatient follow up. He understands how to utilize resources such as calling the hotline if he has any SI/HI. He learned how to stay positive and manage his stress in a healthier way. I explained to the patient that discharge from the hospital does not mean thatmedical care ends here. He needs consistent outpatient psychiatric follow-up, cognitive behavioral therapy, and PCP visits to ensure stability of symptoms. His three wishes include maintain better health, keep a positive outlook in life, and make good money Discharge disposition home, coordinated by case management Safe discharge Planning: With the cessation of all suicidal ideation, improvements in mood, and with a cessation of any psychotic process, aftercare plans were solidified. The patient was able to formulate a believable safety plan. Discharge plans were discussed with the patient and the treatment team. All agreed with the discharge plan. On the day of discharge, he was evaluated and had no complaints. He denied any SI/HI. He agreed to follow up with outpatient treatment as arranged by case management. He was offered long acting injectable but declined. He did not meet criteria for forced meds. Suicide risk assessment: A thorough review of protective and risk factors was conducted during this admission. Discussed with the patient the following recommendations that would help reduce suicide which include limiting the numberof pills to a 14-day supply with one refill at the time of discharge to avoid potential overdose, involving family members in his care, consistent outpatient follow up preferably within seven days of release, and his desire to live. He reported a good therapeutic alliance, good response to medication management andtherapy, availability of local mental health services and willingness to follow up, lack of suicidal ideation, behvaior, intent or plan, lack of impulsivity, agitation, or psychosis. Pt is future-oriented and understands the importance ofoutpatient follow-up. The presence of positive factors like family and wade, lack of access to firearms, and desire to continue his treatment is consistent with a safe discharge plan. Given the chronic risk of suicide, we discussed a plan to help him long-term safety. The patient is not suicidal or psychotic now. To help decrease his suicide risk, as best I can, I am referring him for outpatient treatment including but not limited to medication management for long-term follow-up to have somewhere to go and someone to manage him as symptoms and stressors develop. This is the best way to keep him alive. So, we discussed a crisis plan for future suicidality: at the first sign of distress, he will call the hotline;if this is not sufficient, he will 911, then call family members or friends; ultimately, he will come to the ER. MSE: Orientation: Alert and oriented to person, place, and time. Appearance/Behavior: Fair grooming and hygiene, calm, cooperative, engaged in the interview. Good eye contact. Normal psychomotor activity. Speech: regular rate, rhythm, volume, and tone. Non pressured. Knowledge: Appropriate for age and level of education Mood: okay Affect: reactive, mood-congruent Thought process: linear, logical, and goal-oriented Thought content: No SI/HI. No AVH. No delusions. He does not appear to be responding to internal stimuli. Concentration: Grossly intact based on track during the interview Associations: No loosening of associations Memory: Able to recall recent and remote historical information Insight: Fair, able to appreciate current symptoms and need for outpatient treatment Judgment: fair, agreed to follow treatment recommendations. Safety: The patient is not acutely psychotic, suicidal or homicidal and can continue treatment on an outpatient basis. He was made aware of the 21/09 emergency services of the crisis center and was advised to call 911 or go to the nearest ER in case of a crisis ( (including having thoughts of harming himself or others). Risks (metabolic, EPS, the effect on heart), benefits, and alternatives for all prescribed medications were discussed with the patient. His consent was obtained. He was advised not to drink alcohol while taking medications. Advised the use of drugs can make patient more impulsive leading to poor decisions. Continue supportive therapy with some CBT techniques. Time spent discussing smoking cessation with patient: more than 10 minutes Condition Condition at Discharge: Fair Status at Discharge Functional status at discharge: independent ambulation Time Spent with Patient Time spent providing/coordinating discharge services (# min): 88 Diagnostic Studies Completed and Pending Studies Labs on day of discharge: 04/15/22 05:34: Valproic Acid 44.1 L Exam Physical Exam Vital Signs: Temp Pulse Resp BP Pulse Ox O2 Del Method 97.5 F L 92 H 16 120/84 95 Room Air 04/15/22 07:30 04/15/22 07:30 04/15/22 07:30 04/15/22 07:30 04/15/22 07:30 04/15/22 07:30 Discharge Plan Discharge Plan Patient Disposition: Home Activity: No Activity Restriction Diet: Regular Prescriptions: New paliperidone 6 mg Tablet Extended Release 24 Hr 7.5 mg PO DAILY 30 Days Qty: 38 1RF benztropine 0.5 mg Tablet 0.5 mg PO BID 15 Days Qty: 30 1RF Continued bupropion HCl [Wellbutrin XL] 300 mg tablet extended release 24 hr 300 mg PO DAILY Patient Comments: take 1 tablet by mouth every morning trazodone 100 mg tablet 300 mg PO QHS PRN (Reason: Sleep) Patient Comments: take 1 to 1 AND 1/2 tablets by mouth at bedtime for sleep lisinopril 5 mg tablet 5 mg PO DAILY Patient Comments: take 1 tablet by mouth once daily biotin 10,000 mcg capsule 10,000 mcg PO BID Patient Comments: take 1 capsule by mouth twice a day cholecalciferol (vitamin D3) [Vitamin D3] 25 mcg (1,000 unit) Capsule 25 mcg PO DAILY bupropion HCl 75 mg tablet 75 mg PO DAILY Patient Comments: take 1 tablet by mouth every morning WITH THE 300 MG TABLET TO TOTAL 375MG DAILY divalproex 500 mg tablet,delayed release (DR/EC) 500 mg PO BID ropinirole 0.5 mg tablet 0.5 mg PO TID Patient Comments: take 1 tablet by mouth three times a day cyanocobalamin (vitamin B-12) [Vitamin B-12] 1,000 mcg Tablet Extended Release 1,000 mcg PO DAILY atorvastatin 20 mg Tablet 40 mg PO DAILY Rx Instructions: take at bedtime sertraline 100 mg Tablet 200 mg PO DAILY Centrum Silver 0.4-300-250 mg-mcg-mcg Tablet 1 tab PO DAILY aspirin 81 mg Tablet,Delayed Release (Dr/Ec) 81 mg PO DAILY calcium carbonate-vitamin D3 600 mg(1,500mg) -400 unit Tablet 1 tab PO BID buspirone 15 mg Tablet 30 mg PO TID 30 Days Qty: 180 0RF Discontinued risperidone 1 mg tablet 2 mg PO HS Patient Comments: take 1 tablet by mouth once daily paliperidone [Invega] 1.5 mg Tablet Extended Release 24 Hr 1.5 mg PO DAILY risperidone 0.5 mg tablet 0.5 mg PO DAILY Patient Comments: take 1 tablet by mouth every morning Follow Up: [facility] [Outside] [facility] [Outside] - 04/16/22 8:00 am (Case Management: 04/16/22 you will receive a phone call between 8:00amand 12:00pm. Therapy: 04/23/22 @ 10:00am with Natacha Psychiatry: Wednesday04/24/22 @ 8:40am with Jacqueline Mcintyre CNP ) Farrukh Ng DO [Primary Care Provider] - (Please call to schedule a follow up for any medical needs. ) Documented By: Tristan Luciano MD 3 [id number] Signed By: <Electronically signed by Tristan Luciano MD> 04/15/22 0932 [facility] Work Phone: 1([phone]) 896-610602-14-2023 Progress note Author Tristan figueroa [facility] April 14, 2022 9:55am Note Date/Time April 14, 2022 9:55am [facility] [address] [place] [address] Psychiatry Progress Note Signed Patient: Nancy Magdaleno MR#: [id number] : 1960 Acct:[id number] Age/Sex: 62 / M Adm Date: 3 Loc: 1S Room: [address] [place] [address] Type : ADM IN Attending Dr: Jose Ramos MD Copies to: ~ Date of Service: 04/14/2022 Subjective Subjective Narrative: Mr. Magdaleno reported that he is feeling better and denied AVH. He realizes that AH might come back as they are chornic but they are becoming less frequent and is able to ignore them. He is in better spiritis today. The patient denies current suicidal or homicidal ideation, and verbalized the intent to notify staff if there are such thoughts. The patient denies recent suicidal or self injurious behaviors. Mental Status Exam: Appearance: grossly normal Mental Status: mental status grossly normal Mood: ok Affect: reactive affect Speech and Movement: speech and movement normal and speech clear Attitude: cooperative Thought Process: normal Thought Content: Denied auditory hallucinations, no homicidality, no suicidality. Denies paranoid thoughts. Insight: fair Judgment: fair Exam Physical Exam Vital Signs: Temp Pulse Resp BP Pulse Ox O2 Del Method 97.7 F 97 H 17 131/78 95 Room Air 04/14/22 07:30 04/14/22 07:30 04/14/22 07:30 04/14/22 07:30 04/14/22 07:30 04/14/22 07:30 Assessment/Plan Assessment/Plan (1) Bipolar disorder: Code(s): F31.9 - Bipolar disorder, unspecified Status: Acute Plan Patient reported feeling better and denies any psychotic symptoms today. DeniedSI/HI. Continue Wellbutrin 300 mg, BuSpar 30 mg 3 times a day, Depakote 500 mg twice a day, increase Invega 9 mg daily Continue Zoloft 200 mg, Requip 0.5 mg 3 times a day and trazodone 300 mg at bedtime Continue to monitor mental status Encourage group participation and medication compliance Risk benefits alternatives explained Documented By: Tristan Luciano MD [id number] Signed By: <Electronically signed by Tristan Luciano MD> 04/14/22954 [facility] Work Phone: 1([phone]) 523-232002-13-2023 Progress note Author Tristan figueroa [facility] April 13, 2022 7:54am Note Date/Time April 13, 2022 7:54am [facility] [address] [place] [address] Psychiatry Progress Note Signed Patient: Nancy Magdaleno MR#: [id number] : 1960 Acct:[id number] Age/Sex: 62 / M Adm Date: 3 Loc: Room: [address] [place] [address] Type : ADM IN Attending Dr: Jose Ramos MD Copies to: ~ Date of Service: 04/13/2022 Subjective Subjective Narrative: Mr. Magdaleno reported that he is still experiencing some paranoid thoughts but less compared to the time of admission. He is trying to ignore these thoughts.Stated that meds are helping keep his anxiety down. Denied SI/HI. Mental Status Exam: Appearance: grossly normal Mental Status: mental status grossly normal Mood: Dysphoric Affect: Constricted affect Speech and Movement: speech and movement normal and speech clear Attitude: cooperative Thought Process: normal Thought Content: Denied auditory hallucinations, no homicidality, no suicidality. Reported paranoid thoughts. Insight: fair Judgment: fair Exam Physical Exam Vital Signs: Temp Pulse Resp BP Pulse Ox O2 Del Method 97.9 F 96 H 18 120/78 97 Room Air 04/12/22 20:23 04/12/22 20:23 04/12/22 20:23 04/12/22 20:23 04/12/22 20:23 04/12/22 20:23 Assessment/Plan Assessment/Plan (1) Bipolar disorder: Code(s): F31.9 - Bipolar disorder, unspecified Status: Acute Plan Patient reported paranoid, racing thoughts and moderate anxiety. Denied SI/HI. Continue Wellbutrin 300 mg, BuSpar 30 mg 3 times a day, Depakote 500 mg twice a day, increase Invega 9 mg daily Continue Zoloft 200 mg, Requip 0.5 mg 3 times a day and trazodone 300 mg at bedtime Continue to monitor mental status Encourage group participation and medication compliance Risk benefits alternatives explained Documented By: Tristan Luciano MD 3 [id number] Signed By: <Electronically signed by Tristan Luciano MD> 04/13/22 9821 [facility] Work Phone: [phone]) [phone] Progress note Author Jose Ramos [facility] April 12, 2022 10:55am Note Date/Time April 12, 2022 10:55am [facility] [address] [place] [address] Psychiatry Progress Note Signed Patient: Nancy Magdaleno MR#: [id number] : 1960 Acct:[id number] Age/Sex: 62 / M Adm Date: 3 Loc: Room: [address] [place] [address] Type : ADM IN Attending Dr: Jose Ramos MD Copies to: ~ Date of Service: 04/12/2022 Subjective Subjective Narrative: Mr. Magdaleno reported that he is still experiencing some paranoid thoughts. He mentioned to me that he is concerned that he will be going to [facility]. He reported that he did not sleep well last night because of these thoughts. He denied any hallucinations at this time. Mental Status Exam: Appearance: grossly normal Mental Status: mental status grossly normal Mood: Dysphoric Affect: Constricted affect Speech and Movement: speech and movement normal and speech clear Attitude: cooperative Thought Process: normal Thought Content: Denied auditory hallucinations, no homicidality, no suicidality. Reported paranoid thoughts that he would be going to present Insight: fair Judgment: fair Exam Physical Exam Vital Signs: Temp Pulse Resp BP Pulse Ox O2 Del Method 98.1 F 90 18 157/84 H 90 L Room Air 04/12/22 07:30 04/12/22 07:30 04/12/22 07:30 04/12/22 07:30 04/12/22 07:30 04/12/22 07:30 Assessment/Plan Assessment/Plan (1) Bipolar disorder: Code(s): F31.9 - Bipolar disorder, unspecified Status: Acute Plan Patient reported not doing well today. He reported paranoid thoughts about going to [facility] but cannot tell why. He reported racing thoughts and poor sleepovernight Continue Wellbutrin 300 mg, BuSpar 30 mg 3 times a day, Depakote 500 mg twice a day, increase Invega 9 mg daily Continue Zoloft 200 mg, Requip 0.5 mg 3 times a day and trazodone 300 mg at bedtime Continue to monitor mental status Encourage group participation and medication compliance Risk benefits alternatives explained Documented By: Jose Ramos MD 04/12/22 1054 Signed By: <Electronically signed by Jose Ramos MD> 04/12/22 1055 [facility] Work Phone: 1([phone]) 853-819902-11-2023 Progress note Author Jose Ramos [facility] April 11, 2022 11:25am Note Date/Time April 11, 2022 11:25am [facility] [address] [place] [address] Psychiatry Progress Note Signed Patient: Nancy Magdaleno MR#: [id number] : 1960 Acct:[id number] Age/Sex: 62 / M Adm Date: 3 Loc: Room: [address] [place] [address] Type : ADM IN Attending Dr: Jose Ramos MD Copies to: ~ Date of Service: 04/11/2022 Subjective Subjective Narrative: Mr. Magdaleno reported that he is not doing well today. He reported experiencing some anxiety. He denied any hallucinations. He reported that he slept well overnight. He stated that his is at home and she is very supportive. Mental Status Exam: Appearance: grossly normal Mental Status: mental status grossly normal Mood: Improving mood Affect: Constricted affect Speech and Movement: speech and movement normal and speech clear Attitude: cooperative Thought Process: normal Thought Content: Reported improving auditory hallucinations, no homicidality, nosuicidality Insight: fair Judgment: fair Exam Physical Exam Vital Signs: Temp Pulse Resp BP Pulse Ox O2 Del Method 98.0 F 72 18 126/78 97 Room Air 04/11/22 07:30 04/11/22 07:30 04/11/22 07:30 04/11/22 07:30 04/11/22 07:30 04/11/22 07:30 Assessment/Plan Assessment/Plan (1) Bipolar disorder: Code(s): F31.9 - Bipolar disorder, unspecified Status: Acute Plan Patient has noted improvement of symptoms. Possible discharge for tomorrow Continue Wellbutrin 300 mg, BuSpar 30 mg 3 times a day, Depakote 500 mg twice a day, Invega 6 mg daily Continue Zoloft 200 mg, Requip 0.5 mg 3 times a day and trazodone 300 mg at bedtime Continue to monitor mental status Encourage group participation and medication compliance Risk benefits alternatives explained Documented By: Jose Ramos MD 04/11/221124 Signed By: <Electronically signed by Jose Ramos MD> 04/11/221124 [facility] Work Phone: 1(403) 534-216502-10-2023 Progress note Author Jose Ramos [facility] April 10, 2022 11:59am Note Date/Time April 10, 2022 11:59am [facility] [address] [place] [address] Psychiatry Progress Note Signed Patient: Nancy Magdaleno MR#: [id number] : 1960 Acct:[id number] Age/Sex: 62 / M Adm Date: 3 Loc: Room: [address] [place] [address] Type : ADM IN Attending Dr: Jose Ramos MD Copies to: ~ Date of Service: 04/10/2022 Subjective Subjective Narrative: Mr. Magdaleno reported that he is doing pretty good today. He reported that he hada poor night sleep last night which happens occasionally at home. He denied anyhallucinations at this time. He denied any suicidal homicidal thoughts. He denies any side effect to the current medication Mental Status Exam: Appearance: grossly normal Mental Status: mental status grossly normal Mood: Improving mood Affect: Constricted affect Speech and Movement: speech and movement normal and speech clear Attitude: cooperative Thought Process: normal Thought Content: Reported improving auditory hallucinations, no homicidality, nosuicidality Insight: fair Judgment: fair Exam Physical Exam Vital Signs: Temp Pulse Resp BP Pulse Ox O2 Del Method 97.7 F 79 16 141/78 H 94 L Room Air 04/10/22 07:30 04/10/22 07:30 04/09/22 20:00 04/10/22 07:30 04/10/22 07:30 04/10/22 07:30 Assessment/Plan Assessment/Plan (1) Bipolar disorder: Code(s): F31.9 - Bipolar disorder, unspecified Status: Acute Plan Patient reported that symptoms have been improving with Invega Continue Wellbutrin 300 mg, BuSpar 30 mg 3 times a day, Depakote 500 mg twice a day, increase Invega 6 mg daily Continue Zoloft 200 mg, Requip 0.5 mg 3 times a day and trazodone 300 mg at bedtime Continue to monitor mental status Encourage group participation and medication compliance Risk benefits alternatives explained Documented By: Jose Ramos MD 04/10/22 1158 Signed By: <Electronically signed by Jose Ramos MD> 04/10/22 1159 [facility] Work Phone: 1([phone]) [phone] History and physical note Author Jose Ramos [facility] April 09, 2022 11:14am Note Date/Time April 09, 2022 1 1:14am [facility] [address] [place] [address] Psychiatry H&P Signed Patient: Nancy Magdaleno MR#: [id number] : 1960 Acct:[id number] Age/Sex: 62 / M Adm Date: 3 Loc: Room: [address] [place] [address] Type: ADM IN Attending Dr: Jose Ramos MD Copies to: MD Farrukh Pham DO~ Date of Service: 04/09/2022 HPI History of Present Illness History of present illness: Mr. Magdaleno is a 62 year old male who presented due to concern for hallucinations. He has reported homicidal thoughts towards a friend due to the voices. Upon assessment, patient reported that he was having auditory hallucinations. He stated that the voices were telling him to hurt his friend. They are also telling him that he was a prisoner in his own home and do not watch TV or picker feeder the phone. He stated that they are telling him to walk nonstop and he fainted because of that. He stated that his had to come home and found himon the floor. He reported that the auditory hallucinations have been worsening over the past few weeks. He stated that the medication has not been helping him. He denied any suicidal thoughts at this time. He denied any visual hallucinations. Past psych history: Bipolar, SI, anxiety, MDD Past hospitalizations: History past psychiatric hospitalizations, most recently in 2020 Past suicide attempts: 1 attempt in the past by cutting Alcohol and drug use: Denied any significant issues Living: With family Review of symptoms: Constitutional: Denies chills and Denies fever(s) Eyes: Denies change in vision ENT: Denies abnormal hearing Cardiovascular: Denies chest pain Respiratory: Denies chest congestion and Denies cough Gastrointestinal: Denies change in bowel habits Genitourinary: Denies dysuria Musculoskeletal: Denies atrophy and Denies myalgias Integumentary/Breasts: Denies dry skin Neurologic: Denies abnormal gait and Denies abnormal movements Psychiatric: Reports hallucinations Physical exam: Const: cooperative Nutritional Appearance: average body habitus Orientation: alert, awake and oriented x3 HEENT: Head normal to inspection, hearing grossly normal bilaterally, external nose normal, face symmetric Eyes: appearance normal, both eyes and all related structures, sclerae normal Neck: normal visual inspection and full ROM Resp: normal respiratory effort, able to speak in complete sentences and symmetric chest movement Cardio: regular rate GI: normal to inspection and non-distended : deferred Skin: no rashes or lesions noted Neuro: CNII: Visual leigh intact, CNIII,IV,: EOM intact, no nystagmus. Pupilsequal, round, reactive to light and accommodation, CNV: Sensation intact to light touch, CNVII: Raises eyebrows, smile/frown, puff out cheeks symmetrically, CNVIII: Hearing intact bilaterally, CNIX,X: Voice normal, soft palate elevation normal, symmetrical, CNXI: Shoulder shrug strong, equal bilaterally, CNXII: Tongue protrusion midline, movement symmetrical. Extrem: normal to inspection and full ROM Mental Status Exam: Appearance: grossly normal Mental Status: mental status grossly normal Mood: dysthymic mood Affect: Constricted affect Speech and Movement: speech and movement normal and speech clear Attitude: cooperative Thought Process: normal Thought Content: Reported auditory hallucinations, reported homicidality, no suicidality Insight: fair Judgment: fair [facility] Vaccinated for COVID-19?: Yes Medical History (Updated 04/09/22 @ 11:13 by Jose Ramos MD) Anxiety Bipolar disorder Depression Hypercholesterolemia Surgical History H/O arthroscopic knee surgery bilateral History of ear surgery History of nasal surgery History of tonsillectomy Family History Mother Myocardial infarction Father Parkinsons Myocardial infarction Other Pneumonia Social History Smoking Status: Never smoker Tobacco Type: cigarettes Substance Use Type: None Substance Abuse Comment: OCC Meds Medications and Allergies Allergies oxycodone [From Percocet] Adverse Reaction (Verified 04/08/22 11:10) Nausea Home Medications atorvastatin 20 mg tablet 40 mg PO DAILY 04/18/18 [History Confirmed 04/08/22] cyanocobalamin (vitamin B-12) 1,000 mcg tablet,extended release (Vitamin B-12 ER) 1,000 mcg PO DAILY 04/18/18 [History Confirmed 04/08/22] ngnxndrj-qtk-sjgyo acid 0.4 mg-lycopene 300 mcg-lutein 250 mcg tablet (Centrum Silver) 1 tab PO DAILY 04/18/18 [History Confirmed 04/08/22] sertraline 100 mg tablet 200 mg PO DAILY 04/18/18 [History Confirmed 04/08/22] aspirin 81 mg tablet,delayed release 81 mg PO DAILY 05/08/20 [History Confirmed 04/08/22] calcium carbonate 600 mg-vitamin D3 10 mcg (400 unit) tablet 1 tab PO BID 05/08/20 [History Confirmed 04/08/22] bupropion HCl 300 mg 24 hr tablet, extended release (Wellbutrin XL) 300 mg PO DAILY 08/13/20 [History Confirmed 04/08/22] buspirone 15 mg tablet 30 mg PO TID 30 days #180 tabs 08/17/20 [Rx Confirmed 04/08/22] lisinopril 5 mg tablet 5 mg PO DAILY 10/14/20 [History Confirmed 04/08/22] risperidone 1 mg tablet 2 mg PO HS 10/14/20 [History Confirmed 04/08/22] trazodone 100 mg tablet 300 mg PO QHS PRN Sleep 10/14/20 [History Confirmed 04/08/22] biotin 10,000 mcg capsule 10,000 mcg PO BID 04/08/22 [History Confirmed 04/08/22] bupropion HCl 75 mg tablet 75 mg PO DAILY 04/08/22 [History Confirmed 04/08/22] cholecalciferol (vitamin D3) 25 mcg (1,000 unit) capsule (Vitamin D3) 25 mcg PO DAILY 04/08/22 [History Confirmed 04/08/22] divalproex 500 mg tablet,delayed release 500 mg PO BID 04/08/22 [History Confirmed 04/08/22] paliperidone 1.5 mg tablet,extended release 24 hr (Invega) 1.5 mg PO DAILY 04/08/22 [History Confirmed 04/08/22] risperidone 0.5 mg tablet 0.5 mg PO DAILY 04/08/22 [History Confirmed 04/08/22] ropinirole 0.5 mg tablet 0.5 mg PO TID 04/08/22 [History Confirmed 04/08/22] Exam Physical Exam Vital Signs: Temp Pulse Resp BP Pulse Ox O2 Del Method 97.6 F 79 18 117/75 92 L Room Air 04/09/22 07:30 04/09/22 07:30 04/09/22 07:30 04/09/22 07:30 04/09/22 07:30 04/09/22 09:00 Results Labs 04/08/22 11:30 04/08/22 11:30 Psychiatry Labs: 04/08/22 04/08/22 04/08/22 11:30 11:30 11:30 RBC 4.44 Hgb 14.2 Hct 42.9 MCV 96.7 MCH 32.0 MCHC 33.1 RDW 13.7 Plt Count 123 L MPV 8.6 Sodium 139 Potassium 3.9 Chloride 101 Carbon Dioxide 27.4 Anion Gap 14.5 BUN 22 Creatinine 0.86 Calcium 9.4 Total Bilirubin 0.7 AST 26 ALT 32 Alkaline Phosphatase 54 Total Protein 6.0 L Albumin 3.6 Urine Color Yellow Urine Appearance Clear Urine pH 6.0 Ur Specific [place] 1.030 Urine Protein Negative Urine Glucose (UA) Normal Urine Ketones 1+ H Urine Occult Blood Negative Urine Nitrite Negative Ur Leukocyte Esterase Negative Assessment/Plan (1) Bipolar disorder: Code(s): F31.9 - Bipolar disorder, unspecified Status: Acute Plan Patient presenting due to concern for auditory hallucinations. He also reportedthat they have been command in nature telling him to hurt friend. Continue Wellbutrin 300 mg, BuSpar 30 mg 3 times a day, Depakote 500 mg twice a day, will transition off Risperdal and increase Invega 6 mg daily Continue Zoloft 200 mg, Requip 0.5 mg 3 times a day and trazodone 300 mg at bedtime Continue to monitor mental status Encourage group participation and medication compliance Risk benefits alternatives explained Documented By: Jose Ramos MD 04/09/22 1107 Signed By: <Electronically signed by Jose Ramos MD> 04/09/22 1114 [facility] Work Phone: 1([phone]) 419-793707-30-2022 Evaluation note* Encounter Date Diagnosis Assessment Notes Treatment Notes Treatment Clinical Notes Aug, Cough (ICD-10 - R05.9) Aug, COVID-19 (ICD-10 - U07.1) Rapid COVID test performed in office today. Advised patient that test was positive. Instructed patient to isolate per CDC guidelines for 5 days from symptom onset, mask 5 days following. May return to work/activities outside home after isolation period as long as symptoms are improving and has been afebrile for 24 hours without use of antipyretic. Advised patient that treatment of COVID is with viral supportive care, OTC cold medications as directed, Tylenol/Motrin as needed for body aches/fever. Increase fluids and rest. Encouraged use of cool mist humidifier. Follow-up with PCP to advise of positive result and further management. Immediate eval for SOB, difficulty, chest pain, fevers that do not break with antipyretic or any other concerning symptoms as reviewed on patient education handout. Patient verbalizes understanding and is agreeable to treatment plan. Patient left in stable condition [employer] Other Evaluation note* Diagnosis Onset Date Resolution Status Bipolar disorder acute Bipolar disorder, current ep isode manic, severe with psychotic features acute [facility] Work Phone: Evaluation note* Diagnosis Onset Date Resolution Status Bipolar disorder acute Bipolar disorder, current ep isode manic, severe with psychotic features acute Acute psychosis acute Bipolar disorder acute [facility] Work Phone: Evaluation note* Diagnosis Parkinsonism, unspecified Parkinsonism type documented [facility] this encounter [facility] noteNo assessment information available[facility] Work Phone: Evaluation note* Diagnosis 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)- Primary Major depressive disorder, recurrent episode, severe, specified as with psychotic behavior MCI (mild cognitive impairment) Mild cognitive impairment, so stated 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 Primary hypertension ([facility]) Unspecified essential hypertension Venous insufficiency of both lower extremities Need for immunization against influenza Need for prophylactic vaccination and inoculation against influenza Blood in stool [facility]* Diagnosis Pain due to onychomycosis of toenails of both feet- Primary Venous insufficiency of both lower extremities [facility]* Diagnosis MCI (mild cognitive impairment) Mild cognitive impairment, so stated [facility]* Diagnosis Primary parkinsonism ([facility]) Paralysis agitans Tremor Abnormal involuntary movements [facility]* Diagnosis Pain due to onychomycosis of toenails of both feet- Primary Venous insufficiency of both lower extremities [facility]* Diagnosis History of mastoidectomy- Primary Other postprocedural status Impacted cerumen of left ear Impacted cerumen Sensorineural hearing loss (SNHL), unspecified laterality [facility] this [facility]* Diagnosis Tremor- Primary Abnormal involuntary movements Major depressive disorder, recurrent, severe with psychotic symptoms (HCC) ([facility]) Parkinsonism, unspecified Parkinsonism type ([facility]) Bipolar affective disorder, remission status unspecified ([facility]) Frequent falls Primary hypertension ([facility]) Unspecified essential hypertension Mixed hyperlipidemia ([facility]) Mixed hyperlipidemia History of colon polyps [facility]* Diagnosis Pain due to onychomycosis of toenails of both feet- Primary Venous insufficiency of both lower extremities [facility]* Diagnosis MCI (mild cognitive impairment)- Primary Mild cognitive impairment, so stated Tremor Abnormal involuntary movements Parkinsonism due to drug ([facility]) Secondary Parkinsonism [facility]* Diagnosis Medicare annual wellness visit, subsequent- Primary Advance care planning Other specified counseling Parkinsonism due to drug ([facility]) Secondary Parkinsonism Venous insufficiency of both lower extremities Primary hypertension ([facility]) Unspecified essential hypertension Tremor Abnormal involuntary movements 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) ([facility]) Major depressive disorder, recurrent episode, severe, specified as with psychotic behavior Frequent falls Mixed hyperlipidemia ([facility]) Mixed hyperlipidemia Unspecified dementia, unspecified severity, without behavioral disturbance, psychotic disturbance, mood disturbance, and anxiety ([facility]) Chronic constipation Unspecified constipation documented in [facility] encounter [facility]* Diagnosis 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 Secondary Parkinsonism documented in this encounter [facility]* Diagnosis 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 Secondary Parkinsonism Pain due to onychomycosis of toenails of both feet- Primary Venous insufficiency of both lower extremities documented in this encounter [facility]* Diagnosis 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 Secondary Parkinsonism Pain due to onychomycosis of toenails of both feet- Primary Venous insufficiency of both lower extremities documented in this encounter [facility]* Diagnosis 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 Secondary Parkinsonism Pain due to onychomycosis of toenails of both feet- Primary Venous insufficiency of both lower extremities documented in this encounter [facility]* Diagnosis Pain due to onychomycosis of toenails of both feet- Primary Venous insufficiency of both lower extremities documented in this encounter [facility]* Diagnosis 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 Secondary Parkinsonism documented in this encounter [facility]* Diagnosis 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 Secondary Parkinsonism documented in this encounter [facility]* Diagnosis 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 Secondary Parkinsonism documented in this encounter [facility]* Diagnosis 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 Secondary Parkinsonism documented in this encounter [facility]* Diagnosis 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 Secondary Parkinsonism documented in this encounter [facility]* Diagnosis 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 Secondary Parkinsonism documented in this encounter [facility]* Diagnosis 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 Secondary Parkinsonism documented in this encounter [facility] Author Phoenix Rivera [facility] Note Date/Time July 05, 2024 9:01am [facility] [address] [place] [address] Gastroenterology H&P Signed Patient: Nancy Magdaleno MR#: [id number] : 1960 Acct:[id number] Age/Sex: 64 / M Adm Date: 5 Loc: Room: Type: [facility] Attending Dr: Phoenix Rivera MD Copies to: MD Farrukh Hamlin Lyric Tarik,DO~ Date of Service: 07/05/2024 History HISTORY & PHYSICAL: Patient's history with special attention to the cardiovascular, pulmonary systems and the current problem was reviewed with the patient immediately prior to the procedure. Present medications and doses reviewed in the EMR. Allergies and pertinent laboratory tests were also reviewedat this time in the EMR. The physical examination, as below, was then performed. Indication, assessment and HPI: 64-year-old male presents for surveillance colonoscopy due to history of polyps Family history of GI malignancy? no PHYSICAL EXAMINATION Mouth and Pharynx : moist mucus membranes, normal dentition Eyes: EOM intact b/l, normal sclera Pulmonary: normal respiratory effort, able to speak in complete sentences Neurological: alert and oriented x3, moves all extremities Skin: non-jaundiced, warm and dry Abdomen: non-distended, normal to inspection Psych: Mental status and mood grossly normal REVIEW OF SYSTEMS Constitutional: Denies malaise, fevers Cardiovascular: Denies chest pain, palpitations Respiratory: Denies shortness of breath, wheezing Gastrointestinal: Per HPI Genitourinary: Denies dysuria, polyuria Musculoskeletal: Denies joint swelling, joint stiffness Neurological: Denies numbness, tingling Integumentary: Denies rashes, skin lesions Endocrine: Denies fatigue, weight loss Written informed consent obtained from the patient. Risks (including but not limited to perforation, infection, bloating, bleeding, need for emergent surgeryand loss of life), benefits and alternatives explained and questions answered. The patient verbalized understanding. Based on history patient is an appropriate candidate for the procedure. Phoenix Rivera MD Documented By: Phoenix Rivera MD 07/05/24899 Signed By: <Electronically signed by Phoenix Rivera MD> 07/05/24 0901 [facility] Work Phone: Hospital Discharge instructions Additional Instructions Regular Diet No Activity [facility]ions[facility] Phone: Hospital Discharge instructions Additional Instructions DISCHARGE INSTRUCTIONS FOR COLONOSCOPY WHAT TO EXPECT: - You may feel full, gassy or cramping after your procedure. In some cases, this may be from a few hours to a day. Walking may help relieve the discomfort. - If you have polyp(s) removed you may note some minor bloody discharge after your first bowel movements. - You should begin to recover from anesthesia within 1 hour of the procedure, however may feel groggy for the next 24 hours. DO's AND DON'Ts: - Call your doctor right away if you have a hard abdomen, severe pain, are passing lots of bright red blood or clots. - Call your doctor if you develop any rashes, hives or difficulty breathing. - Let your doctor know if you have not had a bowel movement by 3 days after your procedure. - If you take 81 mg aspirin for your heart it is safe to resume this medication. - If you take other blood thinner medications your doctor will instruct you when these can safely be resumed. - Do NOT drive for 24 hours. - Do NOT operate machinery such as power tools, HandMindern mowers, snow blowers, sewing machines, etc. for 24 hours. - Avoid alcoholic beverages and drugs for allergies, nerves, or sleep. - Do NOT stay alone. Do NOT leave your child unattended. - Do NOT make important personal or business decisions or sign any legal documents. - Eat solid foods and drink liquids in smaller amounts than usual until normal appetite returns. If you should experience an upset stomach, liquids high in sugar content (soda, Jon-Aid, non-acid juices) are recommended. - You can resume normal activities tomorrow. FOLLOW UP & RECOMMENDATIONS: - Your primary care office will help you arrange a repeat colonoscopy - Notify the doctor if you have any problems. - Follow up with PCP. 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) Procedures [place] OFFICE/OUTPATIENT [facility] 60 MINUTES Sekou Dai MD [address] [place] [address] [place] [address] Phone: tel: fax: Rosibel Arellano PT Referral ID Status Reason Start Date Expiration Date Visits Requested Visits Authorized [id number] Authorized Specialty Services Required 09/11/2024 03/10/2025 10 10 [facility] N[facility]* Rehabilitation - Outpatient (Routine) - Authorized Specialty Diagnoses / Procedures Referred By Contac t Referred To Contact Physical Therapy Diagnoses 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) Procedures ND OFFICE/OUTPATIENT [facility] 60 MINUTES Sekou Dai MD [address] [place] [address] [place] [address] Phone: tel: fax: Rosibel Arellano PT Referral ID Status Reason Start Date Expiration Date Visits Requested Visits Authorized [id number] Authorized Specialty Services Required 09/11/2024 02/28/2025 10 30 [facility] Healthcare Summary Purpose Family History No Family History Records Found Relationship Condition Age at Onset Recorded Date/T tierney Not Specified Pneumonia Unknown Not Specified Myocardial infarction Unknown father Parkinson's disease Unknown Myocardial infarction Unknown Relationship Condition Age at Onset Recorded Date/T tierney Not Specified Pneumonia Unknown mother Myocardial infarction Unknown father Parkinson's disease Unknown Myocardial infarction Unknown Advance Directives No Advanced Directives Records Found Advance Directive Response Recorded Date/ Time Advance Directives Yes April 9:12am Advance Directive Response Recorded Date/ Time Advance Directives Yes April 10:12am Chief Complaint and Reason for Visit Chief Complaint clearance Reason for Visit Bipolar disorder Bipolar disorder, current episode manic, severe with psychotic features Chief Complaint clearance mental eval Reason for Visit Bipolar disorder Bipolar disorder, current episode manic, severe with psychotic features Acute psychosis Bipolar disorder Chief Complaint K memory issues/weak ness Chief Complaint Admit Date May 10, 2024 9:1 7am hx of colon polyps July 05, 2024 8:03am hx of colon polyps July 05, 2024 9:00am Additional Source Comments (unrecognized sect ion and content) No Status Records FoundNo Status Records FoundNo Status Records FoundNo Status Records Found INFORMATION SOURCE (unrecogn ized section and content) DATE CREATED AUTHOR 07/13/2021 [facility] DATE CREATED AUTHOR AUTHOR'S ORGANIZ ATION 12/23/2021 [facility] DATE CREATED AUTHOR AUTHOR'S ORGANIZ ATION 11/02/2024 [facility] DATE CREATED AUTHOR AUTHOR'S ORGANIZ ATION 11/09/2024 [facility] EPIC REASON FOR VISIT (unrecogniz ed section and content) Reason Onset Date Comments Med Refill 04/01/2023 Reason Comments 6 month f/u Pt is here for 6 mon th visit and review labs. Reason Comments Toenail Care Non DM Nails Reason Comments Toenail Care Non dm nail care Reason Comments Mastoid Cleaning Reason Comments 4 month follow up Pt is being seen tod ay for his 4 month follow up and managment of her chronic conditions. Pt had lab work done in preparations for todays visit, results and recommendations will be reviewed with them. Reason Comments Medicare Annual Wellness Vis it Subsequent Pt is being seen today for his annual MW V and managment of his chronic conditions. Pt had lab work done in preparations for todays visit, results and recommendations will be reviewed with them. Reason Onset Date Comments PT Initial Eval 09/11/2024 Need to request if Home Health is treating. Call back 09/13/2024 Was told no Home health is being done. Reason Comments Toenail Care Care Teams (unrecognized sec tion and content) Team Status: Active Member Role Status Dates Farrukh Ng DO Primary Care Provider Active Team Status: Active Member Role Status Dates Farrukh Ng DO Primary Care Provider Active Start: May 10, 2024 Tristan Luciano MD Attending Provider Active Start: May 10, 2024 Team Status: Inactive Member Role Status Dates Farrukh Ng DO Primary Care Provider Active Start: July 05, 2024 End: July 05, 2024 Phoenix Rivera MD Attending Provider Active S tart: July 05, 2024 End: July 05, 2024 Team Status: Active Member Role Status Dates Farrukh Ng DO Primary Care Provider Active Start: July 05, 2024 Phoenix Rivera MD Attending Provider, Other Provide r Active Start: July 05, 2024 Team Status: Inactive Member Role Status Dates Farrukh Ng DO Primary Care Provider Active Easton Knowles , DO Emergency Provider Active Jose Ramos MD Admit Provider, Attending Provider Active Team Status: Inactive Member Role Status Dates Farrukh Ng DO Primary Care Provider Active Zelalem Schmid , DO Emergency Provider Active Jose Ramos MD Admit Provider, Attending Provider Active Platform Power Technician Relationship Specialty Start Date End Date Farrukh Ng DO [address] [place] [address] PCP - General Internal Medicine 07/22/22 Team Status: Inactive Member Role Status Dates Farrukh Ng DO Primary Care Provider Active Start: June 02, 2023 End: June 02, 2023 Sekou Dai MD Attending Provider Active Start: June 02, 2023 End: June 02, 2023 Platform Power Technician Relationship Specialty Start Date End Date Farrukh Ng DO [address] [place] [address] PCP - General Internal Medicine 07/22/22 Sekou Dai MD [address] [place] [address] Referring Physician Neurology 06/11/23 Óscar Jeffers MD [address] [place] [address] Referring Physician Ophthalmology 06/11/23 Platform Power Technician Relationship Specialty Start Date End Date Farrukh Ng DO [address] [facility] [address] [place] [address] PCP - General Internal Medicine 07/22/22 Sekou Dai MD [address] [place] [address] Referring Physician Neurology 06/11/23 Óscar Jeffers MD [address] [place] [address] Referring Physician Ophthalmology 06/11/23 Platform Power Technician Relationship Specialty Start Date End Date Farrukh Ng DO [address] [place] [address] PCP - General Internal Medicine 07/22/22 Sekou Dai MD [address] [place] [address] Referring Physician Neurology 06/11/23 Óscar Jeffers MD [address] [place] [address] Referring Physician Ophthalmology 06/11/23 Platform Power Technician Relationship Specialty Start Date End Date Farrukh Ng DO [address] [place] [address] PCP - General Internal Medicine 07/22/22 Sekou Dai MD [address] [place] [address] Referring Physician Neurology 06/11/23 Óscar Jeffers MD [facility] [place] [address] Referring Physician Ophthalmology 06/11/23 Platform Power Technician Relationship Specialty Start Date End Date Farrukh Ng DO [address] [address] PCP - General Internal Medicine 07/22/22 Sekou Dai MD [address] [place] [address] Referring Physician Neurology 06/11/23 Óscar Jeffers MD [address] [place] [address] Referring Physician Ophthalmology 06/11/23 Platform Power Technician Relationship Specialty Start Date End Date Farrukh Ng DO [address] [place] [address] PCP - General Internal Medicine 07/22/22 Sekou Dai MD [address] [place] [address] Referring Physician Neurology 06/11/23 Óscar Jeffers MD [address] [place] [address] Referring Physician Ophthalmology 06/11/23 Platform Power Technician Relationship Specialty Start Date End Date Farrukh Ng DO [address] [place] [address] PCP - General Internal Medicine 07/22/22 Sekou Dai MD [address] [place] [address] Referring Physician Neurology 06/11/23 Óscar Jeffers MD [address] [place] [address] Referring Physician Ophthalmology 06/11/23 Platform Power Technician Relationship Specialty Start Date End Date Farrukh Ng DO [address] [place] [address] PCP - General Internal Medicine 07/22/22 Sekou Dai MD [address] [place] [address] Referring Physician Neurology 06/11/23 Óscar Jeffers MD [address] [place] [address] Referring Physician Ophthalmology 06/11/23 Platform Power Technician Relationship Specialty Start Date End Date Farrukh Ng DO [address] [place] [address] PCP - General Internal Medicine 07/22/22 Farrukh Ng DO [address] [place] [address] PCP - ACO Reach 04/07/24 Sekou Dai MD [address] [place] [address] Referring Physician Neurology 06/11/23 Óscar Jeffers MD [address] [place] [address] Referring Physician Ophthalmology 06/11/23 Platform Power Technician Relationship Specialty Start Date End Date Farrukh Ng DO [address] [place] [address] PCP - General Internal Medicine 07/22/22 Farrukh Ng DO [address] [place] [address] PCP - ACO Reach 04/07/24 Sekou Dai MD [address] [place] [address] Referring Physician Neurology 06/11/23 Óscar Jeffers MD [address] [place] [address] Referring Physician Ophthalmology 06/11/23 Platform Power Technician Relationship Specialty Start Date End Date Farrukh Ng DO [address] [place] [address] PCP - General Internal Medicine 07/22/22 Farrukh Ng DO [address] [place] [address] PCP - ACO Reach 04/07/24 Sekou Dai MD [address] [place] [address] Referring Physician Neurology 06/11/23 Ó[place] [address] [place] [address] Referring Physician Ophthalmology 06/11/23 Platform Power Technician Relationship Specialty Start Date End Date Farrukh Ng DO [address] [place] [address] PCP - General Internal Medicine 07/22/22 Farrukh Ng DO [address] [place] [address] PCP - ACO Reach 04/07/24 Sekou Dai MD [address] [place] [address] Referring Physician Neurology 06/11/23 Óscar Jeffers MD [address] [place] [address] Referring Physician Ophthalmology 06/11/23 Platform Power Technician Relationship Specialty Start Date End Date Farrukh Ng DO [address] [place] [address] PCP - General Internal Medicine 07/22/22 Farrukh Ng DO [address] [place] [address] PCP - ACO Reach 04/07/24 Sekou Dai MD [address] [place] [address] Referring Physician Neurology 06/11/23 Óscar Jeffers MD [address] [place] [address] Referring Physician Ophthalmology 06/11/23 Platform Power Technician Relationship Specialty Start Date End Date Farrukh Ng DO [address] [place] [address] PCP - General Internal Medicine 07/22/22 Farrukh Ng DO [address] [place] [address] PCP - ACO Reach 04/07/24 Sekou Dai MD [address] [place] [address] Referring Physician Neurology 06/11/23 Óscar Jeffers MD [address] [place] [address] Referring Physician Ophthalmology 06/11/23 Platform Power Technician Relationship Specialty Start Date End Date Farrukh Ng DO [address] [address] PCP - General Internal Medicine 07/22/22 Farrukh Ng DO [address] [facility] [address] [address] PCP - ACO Reach 04/07/24 Sekou Dai MD [address] [place] [address] Referring Physician Neurology 06/11/23 Óscar Jeffers MD [address] [place] [address] Referring Physician Ophthalmology 06/11/23 Platform Power Technician Relationship Specialty Start Date End Date Farrukh Ng DO [address] [address] PCP - General Internal Medicine 07/22/22 Farrukh Ng DO [address] [address] PCP - ACO Reach 04/07/24 Sekou Dai MD [address] [place] [address] Referring Physician Neurology 06/11/23 Óscar Jeffers MD [address] [place] [address] Referring Physician Ophthalmology 06/11/23 Platform Power Technician Relationship Specialty Start Date End Date Farrukh Ng DO [address] [place] [address] PCP - General Internal Medicine 07/22/22 Farrukh Ng DO [address] [place] [address] PCP - ACO Reach 04/07/24 Sekou Dai MD [address] [place] [address] Referring Physician Neurology 06/11/23 Ó[place] [address] [place] [address] Referring Physician Ophthalmology 06/11/23 Platform Power Technician Relationship Specialty Start Date End Date Farrukh Ng DO [address] [facility] [address] [place] [address] PCP - General Internal Medicine 07/22/22 Farrukh Ng DO [address] [facility] [address] [place] [address] PCP - ACO Reach 04/07/24 Sekou Dai MD [address] [place] [address] Referring Physician Neurology 06/11/23 Óscar Jeffers MD [address] [place] [address] Referring Physician Ophthalmology 06/11/23 Platform Power Technician Relationship Specialty Start Date End Date Farrukh Ng DO [address] [place] [address] PCP - General Internal Medicine 07/22/22 Farrukh Ng DO [address] [place] [address] PCP - ACO Reach 04/07/24 Sekou Dai MD [address] [place] [address] Referring Physician Neurology 06/11/23 Óscar Jeffers MD [facility] [place] [address] Referring Physician Ophthalmology 06/11/23 Platform Power Technician Relationship Specialty Start Date End Date Farrukh Ng DO [address] [place] [address] PCP - General Internal Medicine 07/22/22 Farrukh Ng DO [address] [facility] [address] [place] [address] PCP - ACO Reach 04/07/24 Sekou Dai MD [address] [place] [address] Referring Physician Neurology 06/11/23 Óscar Jeffers MD [facility] [place] [address] Referring Physician Ophthalmology 06/11/23 Platform Power Technician Relationship Specialty Start Date End Date Farrukh Ng DO [address] [place] [address] PCP - General Internal Medicine 07/22/22 Farrukh Ng DO [address] [place] [address] PCP - ACO Reach 04/07/24 Sekou Dai MD [address] [place] [address] Referring Physician Neurology 06/11/23 Óscar Jeffers MD [address] [place] [address] Referring Physician Ophthalmology 06/11/23 Platform Power Technician Relationship Specialty Start Date End Date Farrukh Ng DO [address] [place] [address] PCP - General Internal Medicine 07/22/22 Farrukh Ng DO [address] [place] [address] PCP - ACO Reach 04/07/24 Sekou Dai MD [address] [place] [address] Referring Physician Neurology 06/11/23 Óscar Jeffers MD [address] [place] [address] Referring Physician Ophthalmology 06/11/23 Platform Power Technician Relationship Specialty Start Date End Date Farrukh Ng DO [address] [place] [address] PCP - General Internal Medicine 07/22/22 Farrukh Ng DO [address] [place] [address] PCP - ACO Reach 04/07/24 Sekou Dai MD [address] [place] [address] Referring Physician Neurology 06/11/23 Óscar Jeffers MD [address] [place] [address] Referring Physician Ophthalmology 06/11/23 Platform Power Technician Relationship Specialty Start Date End Date Farrukh Ng DO [address] [place] [address] PCP - General Internal Medicine 07/22/22 Farrukh Ng DO [address] [place] [address] PCP - ACO Reach 04/07/24 Sekou Dai MD [address] [place] [address] Referring Physician Neurology 06/11/23 Óscar Jeffers MD [address] [place] [address] Referring Physician Ophthalmology 06/11/23 Platform Power Technician Relationship Specialty Start Date End Date Farrukh Ng DO [address] [place] [address] PCP - General Internal Medicine 07/22/22 Farrukh Ng DO [address] [place] [address] PCP - ACO Reach 04/07/24 Sekou Dai MD [address] [place] [address] Referring Physician Neurology 06/11/23 Óscar Jeffers MD [address] [place] [address] Referring Physician Ophthalmology 06/11/23 Platform Power Technician Relationship Specialty Start Date End Date Farrukh Ng DO [address] [place] [address] PCP - General Internal Medicine 07/22/22 Farrukh Ng DO [address] [place] [address] PCP - ACO Reach 04/07/24 Sekou Dai MD [address] [place] [address] Referring Physician Neurology 06/11/23 Óscar Jeffers MD [address] [place] [address] Referring Physician Ophthalmology 06/11/23 Platform Power Technician Relationship Specialty Start Date End Date Farrukh Ng DO [address] [place] [address] PCP - General Internal Medicine 07/22/22 Farrukh gN DO [address] [place] [address] PCP - ACO Reach 04/07/24 Sekou Dai MD [address] [place] [address] Referring Physician Neurology 06/11/23 Óscar Jeffers MD [address] [place] [id number] Referring Physician Ophthalmology 06/11/23 Platform Power Technician Relationship Specialty Start Date End Date Farrukh Ng DO [address] [place] [address] PCP - General Internal Medicine 07/22/22 Farrukh Ng DO [address] [place] [address] PCP - ACO Reach 04/07/24 Sekou Dai MD [address] [place] [address] Referring Physician Neurology 06/11/23 Óscar Jeffers MD [address] [place] [id number] Referring Physician Ophthalmology 06/11/23 Goals (unrecognized section and content) Goals may be documented in a n alternate section FOR RECORDS PERTAINING TO PATIENTS WHO ARE OR HAVE BEEN ENROLLED IN A CHEMICAL DEPENDENCY/SUBSTANCEABUSE PROGRAM, SOME INFORMATION MAY BE OMITTED. This clinical summary was aggregated from multiple sources. Caution should be exercised in using it in the provision of clinical care. This summary normalizes information from multiple sources, and as a consequence, information in this document may materially change the coding, format and clinical context of patient data. In addition, data may be omitted in some cases. CLINICAL DECISIONS SHOULD BE BASED ON THE PRIMARY CLINICAL RECORDS. [facility] provides no warranty or guarantee of the accuracy or completeness of information in this document.
== END 2024-11-13 12:25 | disposition home or self-care (01) ==
PROVIDERS: Emergency Provider Emergency Medicine; PCP Internal Medicine
DX: J01.90 Acute sinusitis, unspecified (principal); J34.89 Other specified disorders of nose and nasal sinuses; Z87.891 Personal history of nicotine dependence; B96.89 Other specified bacterial agents as the cause of diseases classified elsewhere
CPT/HCPCS: 99283